=== PATIENT | female | born 1935 | race Hispanic/Latino ===

== ENCOUNTER 2018-03-09 17:29 | Inpatient (IN) | payer MEDICARE, BC ==
--- NOTE | 2018-03-09 18:00 | ED PDOC ---
HPI:STROKE - Time Time: 17:40 - Historian Historian: Family (Daughter Rebekah)) - Chief Complaint Chief Complaint: Numbness (left arm), Slurred speech - Onset Date: 03/09/18 Time: 09:30 Onset: Hours (x8) - Timing Timing: Currently Symptomatic - Location Location: Speech Locate left: Upper extremity (left) - Notes: Notes:: 82 y/o female with a PMHx of Dementia presents to the ED for evaluation of a possible stroke, onset 8 hours ago. Daughter states she was with an aide during the day who contacted her and stated that the patient had suddenly developed slurred speech and tingling in the left arm at approximately 9:30 AM/10:00 AM this morning. Daughter states patient was not speaking for about 10 minutes. Daughter contacted patient's PMD who stated the patient should go to the ER immediately thus prompting today's visit. Daughter additionally reports patient had a higher than normal blood pressure at onset of symptoms. Patient reports of feeling fine for the rest of the day. Of note, daughter states patient has had two similar episodes of symptoms prior to today's. PMD: Aayush Capps NIHSS Stroke Scale - Date/Time Evaluation Performed Date Performed: 03/09/18 Time Performed: 17:45 When Was NIHSS Performed: Code Stroke - How Severe is the Stroke Level of Consciousness: 0=Alert LOC to Questions: 2=Neither correct LOC to commands: 0=Obeys both correctly Best Gaze: 0=Normal Visual: 0=No visual loss Facial: 0=Normal Motor Arm - Left: 0=No drift Motor Arm - Right: 0=No drift Motor Leg - Left: 0=No drift Motor Leg - Right: 0=No drift Limb Ataxia: 0=Absent Sensory: 0=Normal Best Language: 0=No aphasia Dysarthia: 0=Normal articulation Extinction & Inattention (Neglect): 0=Normal, no object Score: 2 rTPA Inclusion/Exclusion - Refusal of Treatment Patient Refused Treatment: No - Inclusion Criteria for Altepase Patient is 18 years or Older: Yes The Clinical Diagnosis of Ischemic Stroke That is Causing a Potentially Disabling Neurological Deficit: Yes Time of Onset is Well Established to be Less Than 270 Minute Before Treatment Would Begin: No Risk/Benefit Discussed With Patient/Family Member Present: Yes - Exclusion Criteria for Altepase Uncontrolled Hypertension at Time of Treatment (Systolic BP above 185 or Diastolic BP above 110 mmHg): No Active Internal Bleeding: No Known Bleeding Diathesis Including but Not Limited to: Platelets Below 100,000/mm,PTT Above 40 sec After Heparin Use, Current Use of Oral Anitcoagulant With INR Greater Than 1.7 or PT Greater Than 15 secs: No Evidence of an Intracranial Hemorrhage: No Evidence of Major Acute Infarct With Signs Greater Than 1/3 MCA Territory: No Suspicion of Subarachnoid Hemorrhage on Pretreatment Evaluation Even if CT Head Negative For Hemorrhage: No - Warning to TPA With Conditions Following Conditions Weighed Against Anticipated Benefit: No Past Medical History Reviewed: Historical Data, Nursing Documentation, Vital Signs Vital Signs: Last Vital Signs Temp 97.3 F L 03/09/18 17:38 Pulse 95 H 03/09/18 17:38 Resp 18 03/09/18 17:38 BP 150/90 03/09/18 17:38 Pulse Ox 98 03/09/18 17:38 - Medical History PMH: HTN, Hypercholesterolemia, Kidney Stones - Surgical History Surgical History: Cholecystectomy - Family History Family History: States: Unknown Family Hx - Living Arrangements Living Arrangements: Other (Home with Aide) - Social History Current smoker - smoking cessation education provided: No Alcohol: None Drugs: Denies - Home Medications Home Medications: Ambulatory Orders Medication Instructions Recorded Alprazolam [Xanax] 0.5 mg PO Q8 PRN 03/09/18 Aspirin [Ecotrin] 81 mg PO DAILY 03/09/18 Candesartan/Hydrochlorothiazid 1 tab PO DAILY 03/09/18 [Atacand Hct 32-12.5 mg Tab] - Allergies Allergies/Adverse Reactions: Allergies Allergy/AdvReac Type Severity Reaction Status Date / Time codeine Allergy DIZZINESS Verified 03/09/18 17:38 Review of Systems ROS Statement: Except As Marked, All Systems Reviewed And Found Negative Neurological: Positive for: Numbness (left arm), Change in Speech, Other (Possible Stroke) Physical Exam - Reviewed Nursing Documentation Reviewed: Yes Vital Signs Reviewed: Yes - Physical Exam Appears: Positive for: No Acute Distress Head Exam: Positive for: ATRAUMATIC, NORMOCEPHALIC Skin: Positive for: Normal Color, Warm, Dry Eye Exam: Positive for: Normal appearance, EOMI, PERRL ENT: Positive for: Normal ENT Inspection Neck: Positive for: Normal, Painless ROM Cardiovascular/Chest: Positive for: Regular Rate, Rhythm. Negative for: Murmur Respiratory: Positive for: Normal Breath Sounds. Negative for: Respiratory Distress Gastrointestinal/Abdominal: Positive for: Normal Exam, Soft. Negative for: Tenderness Extremity: Positive for: Normal ROM. Negative for: Deformity Neurologic/Psych: Positive for: Alert, Oriented (x2 name and place). Negative for: Motor/Sensory Deficits - ECG O2 Sat by Pulse Oximetry: 98 (RA) Pulse Ox Interpretation: Normal Medical Decision Making Medical Decision Making: Time: 1746 Impression: Code Stroke, slurred speech this am, resolved now Plan: -- Type and Screen -- CT Head w/o Contrast -- EKG -- CMP -- Hemoglobin A1C -- Lipid Panel -- Troponin I -- Stroke Team Called -- CBC with Differentials -- PTT -- Prothrombin Time -- CXR Portable -- Sodium Chloride IV 100 mls/hr -- Laborer Salvage -- IV Insertion -- Call Stroke Team Consult -- ED Obtain Labs Stat -- Glucose, Blood -- Nursing Swallow -- Vital Signs Q15Min -- Code Stroke activated -- Spoke to neurologist site acquisition manager, Dr. Vega who states patient should be admitted. Dr. Vega additionally recommends aspirin (pt got asa 81 in the am), MRI and MRA. Patient to be admitted under the hospitalist's service. (dr salas admits to hospitalist) Time: 1815 Plan: -- Brain MRI without Contrast -- MRA Head w/o Contrast -- Aspirin 81 mg PO Time: 1828 CT RESULTS FINDINGS: HEMORRHAGE: No intracranial hemorrhage. BRAIN: Diffuse atrophy with prominence of the ventricles and sulci noted. No mass effect or edema. Intracranial atherosclerosis. Probable bilateral tiny basal ganglia lacunar infarcts. Moderate to severe scattered periventricular and subcortical white matter hypodensities, which are nonspecific, but often seen with chronic microvascular ischemic disease. Asymmetric fluid attenuation evident within the right cerebellum, extra-axial space. VENTRICLES: No hydrocephalus. CALVARIUM: Unremarkable. PARANASAL SINUSES: Mucosal polyp/cysts involving the right maxillary sinus. The remainder the visualized paranasal sinuses appear grossly unremarkable. MASTOID AIR CELLS: Unremarkable as visualized. No inflammatory changes. OTHER FINDINGS: None. IMPRESSION: Moderate to severe nonspecific white matter changes. 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 Given extent of nonspecific white matter changes, underlying acute ischemia cannot be excluded. Please note that MRI with diffusion imaging is more sensitive in the detection of acute ischemic event. Fluid attenuation in the extra-axial space along the right cerebellum possibly representing arachnoid cyst. Findings discussed with Dr. Patel on 03/09/18 at 6:08 p.m.; case also discussed with Dr. Vega on 03/09/18 at 6:27 p.m. spoke with hospitalist Dr Erazo for admission. Scribe Attestation: Documented by Madhuri Davis, acting as a scribe for Davin Patel MD. Provider Scribe Attestation: All medical record entries made by the Scribe were at my direction and personally dictated by me. I have reviewed the chart and agree that the record accurately reflects my personal performance of the history, physical exam, medical decision making, and the department course for this patient. I have also personally directed, reviewed, and agree with the discharge instructions and disposition. Disposition - Clinical Impression Clinical Impression: Slurred speech - Patient ED Disposition Is Patient to be Admitted: Yes Counseled Patient/Family Regarding: Studies Performed, Diagnosis - Disposition Disposition Time: 18:25 Condition: STABLE
[2018-03-09 18:26] LABS: BASO # 0.1 K/uL (0.0-0.2); BASO % 1.4 % (0.0-2.0); EOS # 0.1 K/uL (0.0-0.7); EOS % 1.6 % (0.0-4.0); HEMOGLOBIN 12.2 g/dL (12.0-16.0); LYMPH # 1.3 K/uL (1.0-4.3); LYMPH % 17.6 % (20.0-40.0); MEAN CELL VOLUME 83.2 fl (81.0-99.0); MEAN CORPUSCULAR HEMOGLOBIN 26.7 pg (27.0-31.0); MEAN CORPUSCULAR HGB CONC 32.1 g/dL (33.0-37.0); MEAN PLATELET VOLUME 8.6 fl (7.2-11.7); MONO # 0.6 K/uL (0.0-0.8); MONO % 8.3 % (0.0-10.0); NEUT # 5.1 K/uL (1.8-7.0); NEUT % 71.1 % (50.0-75.0); RBC 4.55 Mil/uL (3.80-5.20); WHITE BLOOD COUNT 7.1 K/uL (4.8-10.8)
--- NOTE | 2018-03-09 18:33 | CT ---
Date of service: 03/09/2018 PROCEDURE: CT HEAD WITHOUT CONTRAST. HISTORY: code stroke COMPARISON: None available. TECHNIQUE: Axial computed tomography images were obtained through the head/brain without intravenous contrast. Radiation dose: Total exam DLP = 793.04 mGy-cm. This CT exam was performed using one or more of the following dose reduction techniques: Automated exposure control, adjustment of the mA and/or kV according to patient size, and/or use of iterative reconstruction technique. FINDINGS: HEMORRHAGE: No intracranial hemorrhage. BRAIN: Diffuse atrophy with prominence of the ventricles and sulci noted. No mass effect or edema. Intracranial atherosclerosis. Probable bilateral tiny basal ganglia lacunar infarcts. Moderate to severe scattered periventricular and subcortical white matter hypodensities, which are nonspecific, but often seen with chronic microvascular ischemic disease. Asymmetric fluid attenuation evident within the right cerebellum, extra-axial space. VENTRICLES: No hydrocephalus. CALVARIUM: Unremarkable. PARANASAL SINUSES: Mucosal polyp/cysts involving the right maxillary sinus. The remainder the visualized paranasal sinuses appear grossly unremarkable. MASTOID AIR CELLS: Unremarkable as visualized. No inflammatory changes. OTHER FINDINGS: None. IMPRESSION: Moderate to severe nonspecific white matter changes. 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 Given extent of nonspecific white matter changes, underlying acute ischemia cannot be excluded. Please note that MRI with diffusion imaging is more sensitive in the detection of acute ischemic event. Fluid attenuation in the extra-axial space along the right cerebellum possibly representing arachnoid cyst. Findings discussed with Dr. Patel on 03/09/18 at 6:08 p.m.; case also discussed with Dr. Vega on 03/09/18 at 6:27 p.m.
[2018-03-09 18:37] LABS: ALB/GLOB RATIO 1.2 (1.0-2.1); ALBUMIN 3.9 g/dL (3.5-5.0); ALT/SGPT 20 U/L (9-52); AST/SGOT 21 U/L (14-36); BLOOD UREA NITROGEN 19 mg/dl (7-17); CALCIUM 9.4 mg/dL (8.4-10.2); GFR NON-AFRICAN AMERICAN > 60; HDL CHOLESTEROL 41 MG/DL (30-70)
[2018-03-09 18:43] LABS: INR 1.1
[2018-03-09 18:45] LABS: PARTIAL THROMBOPLASTIN TIME 31.6 Seconds (25.6-37.1)
[2018-03-09 18:48] LABS: LDL CHOLESTEROL 131 mg/dL (0-129)
[2018-03-09] MEDS: Sodium Chloride 0.9% 1,000 ML IV SCH (18:51)
--- NOTE | 2018-03-09 19:39 | CP.PCM.HP ---
<Sultan Perla - Last Filed: 03/09/18 22:49> History of Present Illness - History of Present Illness History of Present Illness: History taken from patient and patient's daughter due to patient's dementia CC: Slurred speech and right hand tingling HPI: 82 year old female with PMHx Lewy body dementia, hypertension, and HLD brought in to [facility] ED accompanied by her daughter presents for evaluation of possible stroke. Daughter reports patient was at home with home health aide this morning around 9:30-10am when patient developed slurred speech and tingling of right arm. Daughter reports that patient did not talk and blanked out for about 10 minutes. Daughter called her PMD and directed her to ER for prompt evaluation. Patient denies any numbness or tingling of face, drooling, focal w eakness, chest pain or dyspnea. In the ER, patients NIHSS score was [address] showed moderate to severe nonspecific white matter changes. 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 Given extent of nonspecific white matter changes, underlying acute ischemia cannot be excluded. Code stroke was activated and patient is admitted to r/o stroke ROS: all 12 systems reviewed and negative except as mentioned in HPI PMHx: Lewy Body Dementia, HTN, HLD PSHX: Denies Social hx: lives at home. Denies any hx smoking cigarettes, EtOH use or illicit drugs. Family hx: non contributory Allergies: Codeine: vomiting Medications: Alprazolam [0.5 mg PO PRN, Aspirin 81 mg PO DAILY, Candesartan/Hydrochlorothiazide 32/12.5 mg 1 tab PO DAILY PMD: Dr. Capps Surrogate decision maker: Pao (daughter) [phone] Code Status: full code Present on Admission - Present on Admission Any Indicators Present on Admission: No Review of Systems - Review of Systems All systems: reviewed and no additional remarkable complaints except (as mentioned in HPI) Past Patient History - Past Social History Alcohol: None Drugs: Denies - CARDIAC Hx Hypercholesterolemia: Yes Hx Hypertension: Yes - RENAL Hx Kidney Stones: Yes - PSYCHIATRIC Hx Substance Use: No - SURGICAL HISTORY Hx Cholecystectomy: Yes Meds Allergies/Adverse Reactions: Allergies Allergy/AdvReac Type Severity Reaction Status Date / Time codeine Allergy DIZZINESS Verified 03/09/18 17:38 Physical Exam - Constitutional Appears: Non-toxic, No Acute Distress, Chronically Ill - Head Exam Head Exam: ATRAUMATIC, NORMOCEPHALIC - Eye Exam Eye Exam: EOMI, Normal appearance, PERRL - ENT Exam ENT Exam: Mucous Membranes Moist, Normal Oropharynx - Neck Exam Neck exam: Positive for: Normal Inspection - Respiratory Exam Respiratory Exam: Clear to Auscultation Bilateral, NORMAL BREATHING PATTERN. absent: Wheezes, Respiratory Distress - Cardiovascular Exam Cardiovascular Exam: REGULAR RHYTHM, +S1, +S2 - GI/Abdominal Exam GI & Abdominal Exam: Normal Bowel Sounds, Soft. absent: Tenderness - Extremities Exam Extremities exam: Positive for: normal inspection, pedal pulses present. Negative for: calf tenderness - Neurological Exam Neurological exam: Alert (and oriented to place and person) Additional comments: Normal speech pattern, no facial droop or aphasia seen hand president ergonomic consulting strength, upper and lower extremity strength 5/5, sensory intact. - Psychiatric Exam Psychiatric exam: Normal Affect, Normal Mood - Skin Skin Exam: Normal Color, Warm Results - Vital Signs Recent Vital Signs: Last Vital Signs Temp 97.3 F L 03/09/18 17:38 Pulse 88 03/09/18 18:35 Resp 18 03/09/18 18:35 BP 152/73 H 03/09/18 18:35 Pulse Ox 98 03/09/18 18:37 - Labs Result Diagrams: 03/09/18 18:10 03/09/18 18:10 Labs: Laboratory Results - last 24 hr 03/09/18 03/09/18 03/09/18 18:10 18:10 18:10 WBC 7.1 RBC 4.55 Hgb 12.2 Hct 37.9 MCV 83.2 MCH 26.7 L MCHC 32.1 L RDW 14.0 Plt Count 288 MPV 8.6 Neut % (Auto) 71.1 Lymph % (Auto) 17.6 L [place] % (Auto) 8.3 Eos % (Auto) 1.6 Baso % (Auto) 1.4 Neut # (Auto) 5.1 Lymph # (Auto) 1.3 [place] # (Auto) 0.6 Eos # (Auto) 0.1 Baso # (Auto) 0.1 PT 12.0 INR 1.1 APTT 31.6 Sodium 140 Potassium 4.1 Chloride 107 Carbon Dioxide 26 Anion Gap 11 BUN 19 H Creatinine 0.7 Est GFR ( Amer) > 60 Est GFR (Non-Af Amer) > 60 Random Glucose 98 Calcium 9.4 Total Bilirubin 0.4 AST 21 ALT 20 Alkaline Phosphatase 75 Troponin I < 0.0120 Total Protein 7.0 Albumin 3.9 Globulin 3.1 Albumin/Globulin Ratio 1.2 Triglycerides 109 Cholesterol 198 LDL Cholesterol Direct 131 H HDL Cholesterol 41 Assessment & Plan - Assessment and Plan (Free Text) Assessment: 82 year old female with PMHx Lewy body dementia, hypertension, and HLD brought in to [facility] ED accompanied by her daughter presents for evaluation of possible stroke. Daughter reports patient was home health aide this morning around 9:30- 10am when patient developed slurred speech and tingling of right arm. Daughter reports that patient did not talk and blanked out for about 10 minutes. . In the ER, patients NIHSS score was [address] showed moderate to severe nons pecific white matter changes. 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 Given extent of nonspecific white matter changes, underlying acute ischemia cannot be excluded. Code stroke was activated and patient is admitted to r/o stroke. Plan: Slurred speech (resolved) w/ right hand tingling r/o stroke -NIHSS score 2 -Head CT: Moderate to severe nonspecific white matter changes. 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 Given extent of nonspecific white matter changes, underlying acute ischemia cannot be excluded -s/p aspirin 81 mg in ER -Swallow eval: passed in ER -c/w Aspirin and Statin -IVF's D5 1/2 NS with 20 KCl @100cc/hr -Permissive HTN -f/u neuro consult -f/u brain MRI -MRA not done because patient refused Hypertension: -Uncontrolled -Hold BP medications -Permissive HTN for SBP <180 Lewy Body Dementia -chronic DVT prophylaxis -Lovenox 40 mg SC daily Code Status -Full code Plan d/w Dr. Brendan Duncan, [id number] <Alicia Cardona - Last Filed: 03/15/18 20:17> Results - Vital Signs Recent Vital Signs: Last Vital Signs Temp 98.1 F 03/15/18 20:07 Pulse 90 03/15/18 20:07 Resp 18 03/15/18 20:07 BP 153/77 H 03/15/18 20:07 Pulse Ox 97 03/15/18 20:07 - Labs Result Diagrams: 03/13/18 05:50 03/14/18 04:30 Labs: Laboratory Results - last 24 hr 03/15/18 15:10 Urine Color Yellow Urine Clarity Cloudy Urine pH 6.0 Ur Specific [place] 1.016 Urine Protein Negative Urine Glucose (UA) Neg Urine Ketones Negative Urine Blood Moderate Urine Nitrate Positive H Urine Bilirubin Negative Urine Urobilinogen 0.2-1.0 Ur Leukocyte Esterase Large Urine RBC (Auto) 13 H Urine Microscopic WBC 187 H Ur Squamous Epith Cells 10 H Urine Bacteria Mod H Attending/Attestation - Attestation I have personally seen and examined this patient.: Yes I have fully participated in the care of the patient.: Yes I have reviewed all pertinent clinical information: Yes Notes (Text): 03/15/18 20:17 agree with findings and plan as above.
[2018-03-09] MEDS ORDERED: Potassium Ch 20mEq in D5-1/2NS 1,000 ML IV SCH (19:45)
[2018-03-10] MEDS: Sodium Chloride 0.9% 1,000 ML IV SCH (04:00)
--- NOTE | 2018-03-10 06:06 | CARD ---
APPROVED REPORT Date of service: 03/09/2018 EKG Measurement Heart [id number] <Conclusion> Sinus rhythm with 1st degree AV block Minimal voltage criteria for LVH, may be normal variant Borderline ECG
[2018-03-10] MEDS: Enoxaparin 40 mg Syringe SC SCH (08:17)
[2018-03-10] MEDS ORDERED: Pneumococcal 23-Valent Vaccine IM ONE (08:27)
[2018-03-10] MEDS ORDERED: Influenza Vaccine 60 MCG/0.5 ML SYR (3 yr & up) IM ONE (08:27)
--- NOTE | 2018-03-10 08:43 | RAD ---
Date of service: 03/09/2018 HISTORY: Code Stroke COMPARISON: No prior. FINDINGS: LUNGS: No active pulmonary disease. PLEURA: Left pleural effusion difficult to completely exclude. None is seen the right. No pneumothorax bilaterally. CARDIOVASCULAR: No aortic atherosclerotic calcification present. Normal cardiac size. No pulmonary vascular congestion. OSSEOUS STRUCTURES: Scoliotic thoracolumbar spinal deformity distorts the mediastinum. VISUALIZED UPPER ABDOMEN: Normal. OTHER FINDINGS: None. IMPRESSION: Questionable small pleural effusion. None is seen the right. No acute pulmonary disease bilaterally. No acute cardiovascular changes.
[2018-03-10 11:42] LABS: HEMOGLOBIN 12.1 g/dL (12.0-16.0); MEAN CORPUSCULAR HEMOGLOBIN 27.2 pg (27.0-31.0); RBC 4.44 Mil/uL (3.80-5.20); RED CELL DISTRIBUTION WIDTH 14.5 % (11.5-14.5); WHITE BLOOD COUNT 6.9 K/uL (4.8-10.8)
--- NOTE | 2018-03-10 11:52 | MRI ---
Date of service: 03/09/2018 PROCEDURE: MRI BRAIN WITHOUT CONTRAST HISTORY: abnormal ct head; dementia with Lewy bodies. COMPARISON: Unenhanced head CT 03/09/2018. TECHNIQUE: Multiplanar, multisequence MR images of the brain were obtained without intravenous contrast enhancement. FINDINGS: HEMORRHAGE: None DWI: No evidence of an acute or early subacute infarction. BRAIN PARENCHYMA: Expansion of the ventricular sulcal sternal spaces appreciated compatible diffuse cerebral atrophy. A 6.2 x 1.5 cm likely arachnoid cyst is appreciated favored over atypical cisterna magna occupying the midline and right posterior fossa inferiorly and posteriorly. No restricted diffusion associated with this finding. This excludes an epidermoid. Limited mass effect is exerted at the right cerebellar hemisphere posteriorly. Extensive white matter signal abnormalities appreciated throughout the subcortical and centrum semiovale white matter of the upper frontoparietal distribution minimally affecting the temporal lobes and mildly affecting the bilateral occipital lobes. Occasional chronic lacune a are identified in the periventricular white matter as well. The pattern could reflect patient's clinical history of dementia with Lewy bodies though Alzheimer's and other dementias can present similarly. Brainstem is unremarkable and there is no midline shift. VENTRICLES: Unremarkable. No hydrocephalus. CRANIUM: Unremarkable. ORBITS: Grossly unremarkable. PARANASAL SINUSES/MASTOIDS: Clear VASCULAR SYSTEM: Skull base flow voids intact. OTHER FINDINGS: None. IMPRESSION: No evidence of acute separate brain infarction. No significant mass effect. Extensive white matter signal abnormalities are identified in a pattern that may reflect dimension with Lewy bodies (clinically known in this patient) though other dimensions are a possibility as well. Diffuse cerebral atrophy chronic microangiopathy underlie this pattern. 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
--- NOTE | 2018-03-10 13:31 | CP.PCM.CON ---
History of Present Illness - History of Present Illness History of Present Illness: Psychiatry consult note Patient interviewed w/ daughter (POA) Pao, present. Patient unable to provide history due to dementia. CC: Slurred speech and right hand tingling HPI: 82 year old female with PMHx Lewy body dementia, hypertension, and HLD brought in to [facility] ED accompanied by her daughter presents for evaluation of possible stroke. Daughter reports patient was at home with home health aide this morning around 9:30-10am when patient developed slurred speech and tingling of right arm. Daughter reports that patient did not talk and blanked out for about 10 minutes. Daughter called her PMD and directed her to ER for prompt evaluation. Patient denies any numbness or tingling of face, drooling, focal weakness, chest pain or dyspnea. In the ER, patients NIHSS score was [address] showed moderate to severe nonspecific white matter changes. 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 Given extent of nonspecific white matter changes, underlying acute ischemia cannot be excluded. Code stroke was activated and patient is admitted to r/o stroke. At this time, patient only oriented to self. Patient's daughter, Pao, reports that at times the patient has visual hallucinations of the little boy due to her Lewy Body Dementia. Patient denies current hallucinations. Pao does not want the patient treated with psychotropic medications at this time. She denies that the patient is violent or aggressive, she is just frequently confused or sleeping due to dementia. PMHx: Lewy Body Dementia, HTN, HLD PSHX: Denies Social hx: lives at home. Denies any hx smoking cigarettes, EtOH use or illicit drugs. Family hx: non contributory Allergies: Codeine: vomiting Medications: Alprazolam [0.5 mg PO PRN, Aspirin 81 mg PO DAILY, Candesartan/Hydrochlorothiazide 32/12.5 mg 1 tab PO DAILY PMD: Dr. Capps Surrogate decision maker: Pao (daughter) [phone] Code Status: full code Impression: 82 yo female w/ Lewy Body Dementia, HTN, HLD, admitted w/ r/o stroke; patient has major neurocognitive impairment, but is currently calm and not agitated. -Recommend to avoid antipsychotics, such as Haldol or other high potency antipsychotics, as they can worsen symptoms of Lewy Body Dementia -Patient's daughter, POA, does not want the patient treated w/ psychotropic medications at this time; if patient's daughter becomes agreeable, can consider treatment with Aricept, Namenda or Depakote -No acute inpatient psychiatric admission indicated at this time Past Patient History - Past Medical History & Family History Past Medical History?: Yes - Past Social History Alcohol: None Drugs: Denies - CARDIAC Hx Hypercholesterolemia: Yes Hx Hypertension: Yes - PULMONARY Hx Respiratory Disorders: No - NEUROLOGICAL Hx Neurological Disorder: Yes Hx Dementia: Yes - HEENT Hx HEENT Problems: No - RENAL Hx Kidney Stones: Yes - ENDOCRINE/METABOLIC Hx Endocrine Disorders: No - HEMATOLOGICAL/ONCOLOGICAL Hx Blood Disorders: No - INTEGUMENTARY Hx Dermatological Problems: No - MUSCULOSKELETAL/RHEUMATOLOGICAL Hx Musculoskeletal Disorders: Yes Hx Falls: No Hx Unsteady Gait: Yes - GASTROINTESTINAL Hx Gastrointestinal Disorders: No - GENITOURINARY/GYNECOLOGICAL Hx Genitourinary Disorders: No - PSYCHIATRIC Hx Substance Use: No - SURGICAL HISTORY Hx Cholecystectomy: Yes - ANESTHESIA Hx Anesthesia: Yes Hx Anesthesia Reactions: No Meds Allergies/Adverse Reactions: Allergies Allergy/AdvReac Type Severity Reaction Status Date / Time codeine Allergy DIZZINESS Verified 03/09/18 17:38 - Medications Medications: Current Medications Atorvastatin Calcium (Lipitor) 40 mg PO HS [facility] Enoxaparin Sodium (Lovenox) 40 mg SC DAILY RON[facility]; Protocol Last Admin: 03/10/18 08:17 Dose: 40 mg Sodium Chloride (Sodium Chloride 0.9%) 1,000 mls @ 100 mls/hr IV .Q10H [facility]ON[facility] Last Admin: 03/10/18 04:00 Dose: 100 mls/hr Ondansetron HCl (Zofran Inj) 4 mg IVP Q6 PRN PRN Reason: Nausea/Vomiting Results - Vital Signs Recent Vital Signs: Last Vital Signs Temp 98.0 F 03/10/18 12:00 Pulse 73 03/10/18 09:00 Resp 21 03/10/18 09:00 BP 148/86 03/10/18 09:00 Pulse Ox 99 03/10/18 08:13 - Labs Result Diagrams: 03/10/18 11:00 03/09/18 18:10 Labs: Laboratory Results - last 24 hr 03/09/18 03/09/18 03/09/18 17:48 18:10 18:10 WBC 7.1 RBC 4.55 Hgb 12.2 Hct 37.9 MCV 83.2 MCH 26.7 L MCHC 32.1 L RDW 14.0 Plt Count 288 MPV 8.6 Neut % (Auto) 71.1 Lymph % (Auto) 17.6 L [place] % (Auto) 8.3 Eos % (Auto) 1.6 Baso % (Auto) 1.4 Neut # (Auto) 5.1 Lymph # (Auto) 1.3 [place] # (Auto) 0.6 Eos # (Auto) 0.1 Baso # (Auto) 0.1 PT INR APTT Sodium 140 Potassium 4.1 Chloride 107 Carbon Dioxide 26 Anion Gap 11 BUN 19 H Creatinine 0.7 Est GFR ( Amer) > 60 Est GFR (Non-Af Amer) > 60 POC Glucose (mg/dL) 100 Random Glucose 98 Hemoglobin A1c Calcium 9.4 Total Bilirubin 0.4 AST 21 ALT 20 Alkaline Phosphatase 75 Troponin I < 0.0120 Total Protein 7.0 Albumin 3.9 Globulin 3.1 Albumin/Globulin Ratio 1.2 Triglycerides 109 Cholesterol 198 LDL Cholesterol Direct 131 H HDL Cholesterol 41 Blood Type Blood Type Confirm Antibody Screen BBK History Checked 03/09/18 03/09/18 03/09/18 18:10 18:21 18:45 WBC RBC Hgb Hct MCV MCH MCHC RDW Plt Count MPV Neut % (Auto) Lymph % (Auto) [place] % (Auto) Eos % (Auto) Baso % (Auto) Neut # (Auto) Lymph # (Auto) [place] # (Auto) Eos # (Auto) Baso # (Auto) PT 12.0 INR 1.1 APTT 31.6 Sodium Potassium Chloride Carbon Dioxide Anion Gap BUN Creatinine Est GFR ( Amer) Est GFR (Non-Af Amer) POC Glucose (mg/dL) Random Glucose Hemoglobin A1c 5.7 Calcium Total Bilirubin AST ALT Alkaline Phosphatase Troponin I Total Protein Albumin Globulin Albumin/Globulin Ratio Triglycerides Cholesterol LDL Cholesterol Direct HDL Cholesterol Blood Type O POSITIVE Blood Type Confirm Antibody Screen Negative BBK History Checked No verified bt 03/09/18 03/10/18 03/10/18 20:02 04:35 06:24 WBC RBC Hgb Hct MCV MCH MCHC RDW Plt Count MPV Neut % (Auto) Lymph % (Auto) [place] % (Auto) Eos % (Auto) Baso % (Auto) Neut # (Auto) Lymph # (Auto) [place] # (Auto) Eos # (Auto) Baso # (Auto) PT INR APTT Sodium Potassium Chloride Carbon Dioxide Anion Gap BUN Creatinine Est GFR ( Amer) Est GFR (Non-Af Amer) POC Glucose (mg/dL) 97 Random Glucose Hemoglobin A1c Calcium Total Bilirubin AST ALT Alkaline Phosphatase Troponin I < 0.0120 Total Protein Albumin Globulin Albumin/Globulin Ratio Triglycerides Cholesterol LDL Cholesterol Direct HDL Cholesterol Blood Type Blood Type Confirm O POSITIVE Antibody Screen BBK History Checked 03/10/18 03/10/18 03/10/18 09:30 11:00 11:32 WBC 6.9 RBC 4.44 Hgb 12.1 Hct 37.7 MCV 85.0 MCH 27.2 MCHC 32.0 L RDW 14.5 Plt Count 264 MPV Neut % (Auto) Lymph % (Auto) [place] % (Auto) Eos % (Auto) Baso % (Auto) Neut # (Auto) Lymph # (Auto) [place] # (Auto) Eos # (Auto) Baso # (Auto) PT INR APTT Sodium Potassium Chloride Carbon Dioxide Anion Gap BUN Creatinine Est GFR ( Amer) Est GFR (Non-Af Amer) POC Glucose (mg/dL) 87 Random Glucose Hemoglobin A1c Calcium Total Bilirubin AST ALT Alkaline Phosphatase Troponin I < 0.0120 Total Protein Albumin Globulin Albumin/Globulin Ratio Triglycerides Cholesterol LDL Cholesterol Direct HDL Cholesterol Blood Type Blood Type Confirm Antibody Screen BBK History Checked
--- NOTE | 2018-03-10 14:50 | CP.PCM.PN ---
Subjective - Date & Time of Evaluation Date of Evaluation: 03/10/18 Time of Evaluation: 08:15 - Subjective Subjective: Pt seen and examined at bedside with daughter. Pt oriented to self. She was moved to her chair. No acute events since admission. Objective - Vital Signs/Intake and Output Vital Signs (last 24 hours): Temp Pulse Resp BP Pulse Ox 98.0 F 80 21 148/86 99 03/10/18 12:00 03/10/18 09:20 03/10/18 09:00 03/10/18 09:00 03/10/18 08:13 Intake and Output: 03/10/18 03/10/18 06:59 18:59 Intake Total 900 Output Total 300 1 Balance 600 -1 - Medications Medications: Current Medications Atorvastatin Calcium (Lipitor) 40 mg PO HS [facility] Enoxaparin Sodium (Lovenox) 40 mg SC DAILY RONDA; Protocol Last Admin: 03/10/18 08:17 Dose: 40 mg Sodium Chloride (Sodium Chloride 0.9%) 1,000 mls @ 100 mls/hr IV .Q10H [facility] Last Admin: 03/10/18 04:00 Dose: 100 mls/hr Ondansetron HCl (Zofran Inj) 4 mg IVP Q6 PRN PRN Reason: Nausea/Vomiting - Labs Labs: 03/10/18 11:00 03/09/18 18:10 PT 12.0 Seconds (9.8-13.1) 03/09/18 18:10 INR 1.1 03/09/18 18:10 APTT 31.6 Seconds (25.6-37.1) 03/09/18 18:10 - Constitutional Appears: No Acute Distress - Eye Exam Eye Exam: EOMI - ENT Exam ENT Exam: Mucous Membranes Moist - Respiratory Exam Respiratory Exam: NORMAL BREATHING PATTERN. absent: Wheezes - Cardiovascular Exam Cardiovascular Exam: +S1, +S2 - GI/Abdominal Exam GI & Abdominal Exam: Soft, Normal Bowel Sounds. absent: Tenderness - Neurological Exam Neurological Exam: Alert, Awake - Psychiatric Exam Psychiatric exam: Normal Affect, Normal Mood Assessment and Plan - Assessment and Plan (Free Text) Assessment: 82 year old female with PMHx Lewy body dementia, hypertension, and HLD brought in to [facility] ED accompanied by her daughter presents for evaluation of possible stroke. 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 Daughter reports that patient did not talk and blanked out for about 10 minutes. In the ER, patients NIHSS score was [address] showed moderate to severe nonspecific white matter changes. 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 Given extent of nonspecific white matter changes, underlying acute ischemia cannot be excluded. Code stroke was activated and patient is admitted to r/o stroke. Plan: Slurred speech (resolved) w/ right hand tingling r/o stroke -NIHSS score 2 -Head CT: Moderate to severe nonspecific white matter changes. 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 Given extent of nonspecific white matter changes, underlying acute ischemia cannot be excluded -s/p aspirin 81 mg in ER -Swallow eval: passed in ER -c/w Aspirin and Statin -s/p IVF's D5 1/2 NS with 20 KCl @100cc/hr -f/u neuro consult -f/u brain MRI -f/u EEG r/o seizure Murmur -ECHO: ordered -Cardiology: Dr. Madrigal Hypertension: -Uncontrolled -Hold BP medications -Permissive HTN for SBP <180 Lewy Body Dementia -chronic -With behavior disturbance -Psychiatry: Dr. Loredo -f/u prolactin PT -deconditioning s/p possible stroke DVT prophylaxis -Lovenox 40 mg SC daily Code Status -Full code Plan dw Dr. Gina Nevarez MD PGY2
--- NOTE | 2018-03-10 16:20 | MRI ---
Date of service: 03/10/2018 PROCEDURE: Magnetic Resonance Angiography Brain HISTORY: abnormal CT findings COMPARISON: None available. TECHNIQUE: 3D time of flight MR angiography of the intracranial arteries was performed. Rotating maximum intensity projection images were generated. FINDINGS: INTERNAL CAROTID ARTERIES: Unremarkable. The skull base, petrous, cavernous and supraclinoid segments are bilaterally widely patient. ANTERIOR CEREBRAL ARTERIES: Unremarkable. A1 and A2 segments are widely patent. Smaller distal branches unremarkable, as visualized. MIDDLE CEREBRAL ARTERIES: Unremarkable. M1 and M2 segments are widely patent. Perisylvian branches grossly symmetric. POSTERIOR CIRCULATION: Basilar Artery: Unremarkable. Distal Vertebral Arteries: Unremarkable. 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 Left [employer] grossly unremarkable. Posterior Inferior Cerebellar Arteries: Unremarkable. ANEURYSM/ VASCULAR MALFORMATIONS: None. OTHER FINDINGS: None. 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
--- NOTE | 2018-03-10 20:48 | CP.PCM.CON ---
History of Present Illness - History of Present Illness History of Present Illness: Neurology Consultation Note: Mrs. Butler is an 82-year-old woman with a past medical history of Lewy Body dementia, HLD, HTN, who was brought in for symptoms of staring off and not speaking for about 10 minutes. There was concern that she may be having a stroke. Neurology was consulted by Dr. Patel for a possible stroke. Non-con trast CT scan of the head did not show any acute findings. The patient is confused at baseline and has frequent hallucinations. MRI of the brain did not show any acute stroke; however, there was an arachnoid cyst noted in the posterior fossa. She is not clinically at her baseline. Review of Systems - Constitutional Constitutional: As Per HPI - EENT Eyes: absent: As Per HPI, Blind Spots, Blurred Vision, Change in Vision, Decreased Night Vision, Diplopia, Discharge, Dry Eye, Exophthalmos, Floaters, Irritation, Itchy Eyes, Loss of Peripheral Vision, Pain, Photophobia, Requires Corrective Lenses, Sees Flashes, Spots in Vision, Tunnel Vision, Other Visual Disturbances, Loss of Vision, Other Ears: absent: As Per HPI, Decreased Hearing, Ear Discharge, Ear Pain, Tinnitus, Abnormal Hearing, Disequilibrium, Dizziness, Other Nose/Mouth/Throat: absent: As Per HPI, Epistaxis, Nasal Congestion, Nasal Discharge, Nasal Obstruction, Nasal Trauma, Nose Pain, Post Nasal Drip, Sinus Pain, Sinus Pressure, Bleeding Gums, Change in Voice, Dental Pain, Dry Mouth, Dysphagia, Halitosis, Hoarsness, Lip Swelling, Mouth Lesions, Mouth Pain, Odynophagia, Sore Throat, Throat Swelling, Tongue Swelling, Facial Pain, Neck Pain, Neck Mass, Other - Cardiovascular Cardiovascular: absent: As Per HPI, Acrocyanosis, Chest Pain, Chest Pain at Rest, Chest Pain with Activity, Claudication, Diaphoresis, Dyspnea, Dyspnea on E xertion, Edema, Irregular Heart Rhythm, Pain Radiating to Arm/Neck/Jaw, Leg Edema, Leg Ulcers, Lightheadedness, Orthopnea, Palpitations, Paroxysmal Nocturnal Dyspnea, Pedal Edema, Radiating Pain, Rapid Heart Rate, Slow Heart Rate, Syncope, Other - Respiratory Respiratory: absent: As Per HPI, Cough, Dyspnea, Hemoptysis, Dyspnea on Exertion, Wheezing, Snoring, Stridor, Pain on Inspiration, Chest Congestion, Excessive Mucous Production, Change in Mucous Color, Pain with Coughing, Other - Gastrointestinal Gastrointestinal: absent: As Per HPI, Abdominal Pain, Belching, Bloating, Change in Bowel Habits, Change in Stool Character, Coffee Ground Emesis, Constipation, Cramping, Diarrhea, Dyspepsia, Dysphagia, Early Satiety, Excessive Flatus, Fecal Incontinence, Heartburn, Hematemesis, Hematochezia, Loose Stools, Melena, Nausea, Odynophagia, Temesmus, Vomiting, Other - Genitourinary Genitourinary: absent: As Per HPI, Change in Urinary Stream, Difficulty Urinating, Dysuria, Flank Pain, Hematuria, Pyuria, Nocturia, Urinary Incontinence, Urinary Frequency, Urinary Hesitance, Urinary Urgency, Voiding Freq/Small Amts, Freq UTI, Hx Renal/Bladder Calculi, Hx /Renal Surgery, Bladd er Distension, Other - Musculoskeletal Musculoskeletal: absent: As Per HPI, Abnormal Gait, Arthralgias, Atrophy, Back Pain, Deformity, Joint Swelling, Limited Range of Motion, Loss of Height, Muscle Cramps, Muscle Weakness, Myalgias, Neck Pain, Numbness, Radiating Pain into Limb, Stiffness, Tingling, Other - Integumentary Integumentary: absent: As Per HPI, Acne, Alopecia, Bleeding Lesions, Change in Hair, Change in Nails, Change in Pigmentation, Changing Lesions, Dry Skin, Erythema, Furuncle, Hirsutism, Lesions, New Lesions, Non-Healing Lesions, Photosensitivity, Pruritus, Rash, Skin Pain, Skin Ulcer, Sores, Striae, Swelling, Unusual Bruising, Wounds, Jaundice, Other - Neurological Neurological: As Per HPI - Psychiatric Psychiatric: absent: As Per HPI, Abnormal Sleep Pattern, Anhedonia, Anxiety, Auditory Hallucinations, Behavioral Changes, Change in Appetite, Change in Libido, Confusion, Depression, Difficulty Concentrating, Hallucinations, Homicidal Ideation, Hopelessness, Irritability, Memory Loss, Mood Swings, Panic Attacks, Paranoia, Suicidal Ideation, Visual Hallucinations, Tactile Hallucinations, Other - Endocrine Endocrine: absent: As Per HPI, Change in Body Appearance, Change in Libido, Cold Intolorance, Deepening of Voice, Excessive Sweating, Fatigue, Flushing, Heat Intolorance, Increase in Ring/Shoe/Hat Size, Palpitations, Polydipsia, Polyphagia, Polyuria, Other Past Patient History - Past Medical History & Family History Past Medical History?: Yes - Past Social History Alcohol: None Drugs: Denies - CARDIAC Hx Hypercholesterolemia: Yes Hx Hypertension: Yes - PULMONARY Hx Respiratory Disorders: No - NEUROLOGICAL Hx Neurological Disorder: Yes Hx Dementia: Yes - HEENT Hx HEENT Problems: No - RENAL Hx Kidney Stones: Yes - ENDOCRINE/METABOLIC Hx Endocrine Disorders: No - HEMATOLOGICAL/ONCOLOGICAL Hx Blood Disorders: No - INTEGUMENTARY Hx Dermatological Problems: No - MUSCULOSKELETAL/RHEUMATOLOGICAL Hx Musculoskeletal Disorders: Yes Hx Falls: No Hx Unsteady Gait: Yes - GASTROINTESTINAL Hx Gastrointestinal Disorders: No - GENITOURINARY/GYNECOLOGICAL Hx Genitourinary Disorders: No - PSYCHIATRIC Hx Substance Use: No - SURGICAL HISTORY Hx Cholecystectomy: Yes - ANESTHESIA Hx Anesthesia: Yes Hx Anesthesia Reactions: No Meds Allergies/Adverse Reactions: Allergies Allergy/AdvReac Type Severity Reaction Status Date / Time codeine Allergy DIZZINESS Verified 03/09/18 17:38 - Medications Medications: Current Medications Atorvastatin Calcium (Lipitor) 40 mg PO HS [facility] Enoxaparin Sodium (Lovenox) 40 mg SC DAILY [facility]; Protocol Last Admin: 03/10/18 08:17 Dose: 40 mg HCTZ/Losartan Potassium (Hyzaar 12.5 Mg-50 Mg) 1 tab PO DAILY [facility] Sodium Chloride (Sodium Chloride 0.9%) 1,000 mls @ 100 mls/hr IV .Q10H [facility] Last Admin: 03/10/18 04:00 Dose: 100 mls/hr Ondansetron HCl (Zofran Inj) 4 mg IVP Q6 PRN PRN Reason: Nausea/Vomiting Physical Exam - Constitutional Appears: Well - Head Exam Head Exam: ATRAUMATIC, NORMAL INSPECTION, NORMOCEPHALIC - Eye Exam Eye Exam: EOMI, Normal appearance, PERRL Pupil Exam: NORMAL ACCOMODATION, PERRL - ENT Exam ENT Exam: Mucous Membranes Moist, Normal Exam - Neck Exam Neck exam: Positive for: Normal Inspection - Respiratory Exam Respiratory Exam: Clear to Auscultation Bilateral, NORMAL BREATHING PATTERN - Cardiovascular Exam Cardiovascular Exam: REGULAR RHYTHM, +S1, +S2 - GI/Abdominal Exam GI & Abdominal Exam: Normal Bowel Sounds, Soft. absent: Tenderness - Extremities Exam Extremities exam: Positive for: normal inspection - Back Exam Back exam: NORMAL INSPECTION - Neurological Exam Neurological exam: Alert, Altered, CN II-XII Intact, Normal Gait, Reflexes Normal Additional comments: Moves all extremities, follows simple commands, sensation is intact to LT/P. - Psychiatric Exam Psychiatric exam: Normal Affect, Normal Mood - Skin Skin Exam: Dry, Intact, Normal Color, Warm Results - Vital Signs Recent Vital Signs: Last Vital Signs Temp 97.8 F 03/10/18 16:00 Pulse 79 03/10/18 17:00 Resp 17 03/10/18 17:00 BP 133/96 H 03/10/18 17:00 Pulse Ox 99 03/10/18 08:13 - Labs Result Diagrams: 03/10/18 11:00 03/09/18 18:10 Labs: Laboratory Results - last 24 hr 03/09/18 03/09/18 03/10/18 17:48 18:21 04:35 WBC RBC Hgb Hct MCV MCH MCHC RDW Plt Count POC Glucose (mg/dL) 100 Hemoglobin A1c 5.7 Troponin I < 0.0120 Prolactin 03/10/18 03/10/18 03/10/18 06:24 09:30 11:00 WBC 6.9 RBC 4.44 Hgb 12.1 Hct 37.7 MCV 85.0 MCH 27.2 MCHC 32.0 L RDW 14.5 Plt Count 264 POC Glucose (mg/dL) 97 Hemoglobin A1c Troponin I < 0.0120 Prolactin 03/10/18 03/10/18 03/10/18 11:32 12:15 16:28 WBC RBC Hgb Hct MCV MCH MCHC RDW Plt Count POC Glucose (mg/dL) 87 87 Hemoglobin A1c Troponin I Prolactin 9.0 Assessment & Plan (1) Confusion Assessment and Plan: This is likely to Lewy body dementia. However, the episode of non-resp onsiveness in this patient could also be consistent with complex partial seizures. I recommend obtaining an EEG for further evaluation. Otherwise, continue supportive care and manage medical problems. Thank you for this consultation. Status: Acute
--- NOTE | 2018-03-10 22:57 | CARD ---
APPROVED REPORT Date of service: 03/10/2018 EXAM: Two-dimensional and M-mode echocardiogram with Doppler and color Doppler. Other Information Quality : GoodRhythm : NSR INDICATION Murmur 2D DIMENSIONS IVSd1.36 (0.7-1.1cm)LVDd4.12 (3.9-5.9cm) LVOT Diameter2.00 (1.8-2.4cm)PWd1.12 (0.7-1.1cm) IVSs1.00 (0.8-1.2cm)LVDs3.59 (2.5-4.0cm) FS (%) 13.0 %PWs1.17 (0.8-1.2cm) M-Mode DIMENSIONS Left Atrium (MM)4.30 (2.5-4.0cm)IVSd1.40 (0.7-1.1cm) Aortic Root3.14 (2.2-3.7cm)LVDd4.96 (4.0-5.6cm) Aortic Cusp Exc.1.36 (1.5-2.0cm)PWd1.22 (0.7-1.1cm) IVSs1.36 cmFS (%) 18 % LVDs4.05 (2.0-3.8cm)PWs1.40 cm Aortic Valve AoV Peak Vqzevann690.2cm/sAoV VTI53.1cmAO Peak GR.23mmHg LVOT Peak Gmnntpzw23.8cm/sLVOT VTI18.75cmAO Mean GR.14mmHg Mitral Valve MV E Wzpqdekc25.0cm/sMV DECEL FEIG732goPE A Hhaxfiqb835.5cm/s MV WPC57ujU/A ratio0.7MVA (PHT)3.63cm2 TDI Lateral E' Peak V8.23cm/sMedial E' Peak V5.79cm/sE/Lateral E'9.5 E/Medial E'13.5 Tricuspid Valve TR Peak Hhnoqkbs613kk/sRAP [id number] Peak Gr.25mmHg [id number] LEFT VENTRICLE The left ventricle is normal size. There is mild concentric left ventricular hypertrophy. The left ventricular systolic function is normal. The estimated ejection fraction is 60-65% No regional wall motion abnormalities noted.. Transmitral Doppler flow pattern is Grade I-abnormal relaxation pattern. No left ventricle thrombus noted on this study. There is no ventricular septal defect visualized. There is no left ventricular aneurysm. There is no mass noted in the left ventricle. RIGHT VENTRICLE The right ventricle is normal size. There is normal right ventricular wall thickness. The right ventricular systolic function is normal. ATRIA The left atrium is mildly dilated. The right atrium size is normal. The interatrial septum is intact with no evidence for an atrial septal defect. AORTIC VALVE The aortic valve is normal in structure. Calcified leaflets. Mild aortic regurgitation is present. There is moderate aortic valvular stenosis. Peak aortic velocity - 3 m/sec with calculated AV area of 1.1 cm2. There is no aortic valvular vegetation. MITRAL VALVE The mitral valve is normal in structure. There is no evidence of mitral valve prolapse. There is no mitral valve stenosis. There is mild mitral valve regurgitation noted. TRICUSPID VALVE The tricuspid valve is normal in structure. There is mild tricuspid valve regurgitation noted. RVSP is calculated at 36 mm Hg. There is no tricuspid valve prolapse or vegetation. There is no tricuspid valve stenosis. PULMONIC VALVE The pulmonary valve is normal in structure. There is trace pulmonic valvular regurgitation. There is no pulmonic valvular stenosis. GREAT VESSELS The aortic root is normal in size. The ascending aorta is normal in size. The pulmonary artery is normal. The IVC is normal in size and collapses >50% with inspiration. PERICARDIAL EFFUSION There is no pericardial effusion. There is no pleural effusion. <Conclusion> There is mild concentric left ventricular hypertrophy. The estimated ejection fraction is 60-65% Transmitral Doppler flow pattern is Grade I-abnormal relaxation pattern. The left atrium is mildly dilated. There is moderate aortic valvular stenosis. Peak aortic velocity - 3 m/sec with calculated AV area of 1.1 cm2. There is mild mitral valve regurgitation noted. There is mild tricuspid valve regurgitation noted. RVSP is calculated at 36 mm Hg.
[2018-03-11] MEDS: Sodium Chloride 0.9% 1,000 ML IV SCH ×2 (05:01→16:35)
--- NOTE | 2018-03-11 06:53 | CP.PCM.CON ---
History of Present Illness - History of Present Illness History of Present Illness: Consultation for evaluation of recurrent CVA / thromboembolic HPI: 82-year-old female with history of Lewy body dementia hypertension dyslipidemia brought to the emergency room by her daughter for evaluation of symptoms of CVA according to the daughter at bedside patient day before yesterday at 9:30 in the morning developed slurred speech and tingling of the right arm. Patient did not have episode of blacking out for about [address] Brizuela who is her primary care physician who prompted the patient to go to the emergency room for further evaluation and treatment CAT scan of the head showed moderate to severe nonspecific white matter changes with chronic bilateral basal ganglia lacunar type infarcts. Old stroke was activated patient was admitted secondary to rule out evaluation of stroke according to patient's daughter this is the third episode over the course of last 2 years. At baseline she has advanced dementia with behavioral changes she has been followed by Dr. Galicia in the past and then recently by Dr. Garcia for her cardiovascular care at baseline can walk around the house. Past medical history significant for Lewy body dementia hypertension hyperlipidemia past surgical history noncontributory social history lives with her daughter denies any history of smoking alcohol or illicit drug use family history noncontributory allergies allergic to codeine patient home medications include Xanax aspirin candesartan hydrochlorothiazide. Review of systems as stated above in the HPI all other systems reviewed and were negative. CODE STATUS full code. Review of Systems - Review of Systems Systems not reviewed;Unavailable: Acuity of Condition - Constitutional Constitutional: As Per HPI - EENT Eyes: As Per HPI Ears: As Per HPI Nose/Mouth/Throat: As Per HPI - Breasts Breasts: As Per HPI - Cardiovascular Cardiovascular: As Per HPI - Respiratory Respiratory: As Per HPI - Gastrointestinal Gastrointestinal: As Per HPI - Genitourinary Genitourinary: As Per HPI - Reproductive: Female Reproductive:Female: As Per HPI - Menstruation Menstruation: As Per HPI - Musculoskeletal Musculoskeletal: As Per HPI - Integumentary Integumentary: As Per HPI - Neurological Neurological: As Per HPI - Psychiatric Psychiatric: As Per HPI - Endocrine Endocrine: As Per HPI - Hematologic/Lymphatic Hematologic: As Per HPI Past Patient History - Past Medical History & Family History Past Medical History?: Yes - Past Social History Alcohol: None Drugs: Denies - CARDIAC Hx Hypercholesterolemia: Yes Hx Hypertension: Yes - PULMONARY Hx Respiratory Disorders: No - NEUROLOGICAL Hx Neurological Disorder: Yes Hx Dementia: Yes - HEENT Hx HEENT Problems: No - RENAL Hx Kidney Stones: Yes - ENDOCRINE/METABOLIC Hx Endocrine Disorders: No - HEMATOLOGICAL/ONCOLOGICAL Hx Blood Disorders: No - INTEGUMENTARY Hx Dermatological Problems: No - MUSCULOSKELETAL/RHEUMATOLOGICAL Hx Musculoskeletal Disorders: Yes Hx Falls: No Hx Unsteady Gait: Yes - GASTROINTESTINAL Hx Gastrointestinal Disorders: No - GENITOURINARY/GYNECOLOGICAL Hx Genitourinary Disorders: No - PSYCHIATRIC Hx Substance Use: No - SURGICAL HISTORY Hx Cholecystectomy: Yes - ANESTHESIA Hx Anesthesia: Yes Hx Anesthesia Reactions: No Meds Allergies/Adverse Reactions: Allergies Allergy/AdvReac Type Severity Reaction Status Date / Time codeine Allergy DIZZINESS Verified 03/09/18 17:38 - Medications Medications: Current Medications Atorvastatin Calcium (Lipitor) 40 mg PO HS [facility] Last Admin: 03/10/18 22:12 Dose: 40 mg Enoxaparin Sodium (Lovenox) 40 mg SC DAILY [facility]; Protocol Last Admin: 03/10/18 08:17 Dose: 40 mg HCTZ/Losartan Potassium (Hyzaar 12.5 Mg-50 Mg) 1 tab PO DAILY [facility] Sodium Chloride (Sodium Chloride 0.9%) 1,000 mls @ 100 mls/hr IV .Q10H [facility] Last Admin: 03/11/18 05:01 Dose: 100 mls/hr Ondansetron HCl (Zofran Inj) 4 mg IVP Q6 PRN PRN Reason: Nausea/Vomiting Physical Exam - Constitutional Appears: Well, Confused - Head Exam Head Exam: ATRAUMATIC, NORMAL INSPECTION, NORMOCEPHALIC - Eye Exam Eye Exam: EOMI, Normal appearance, PERRL Pupil Exam: NORMAL ACCOMODATION, PERRL - ENT Exam ENT Exam: Mucous Membranes Moist, Normal Exam - Neck Exam Neck exam: Positive for: Normal Inspection - Respiratory Exam Respiratory Exam: Clear to Auscultation Bilateral, NORMAL BREATHING PATTERN - Cardiovascular Exam Cardiovascular Exam: REGULAR RHYTHM, +S1, +S2, Systolic Murmur - GI/Abdominal Exam GI & Abdominal Exam: Normal Bowel Sounds, Soft. absent: Tenderness - Exam Bimanual exam: NORMAL BIMANUAL EXAM - Extremities Exam Extremities exam: Positive for: normal inspection - Back Exam Back exam: NORMAL INSPECTION - Neurological Exam Neurological exam: Alert, CN II-XII Intact, Normal Gait, Oriented x3, Reflexes Normal - Psychiatric Exam Psychiatric exam: Normal Affect, Normal Mood - Skin Skin Exam: Dry, Intact, Normal Color, Warm Results - Vital Signs Recent Vital Signs: Last Vital Signs Temp 98 F 03/11/18 05:00 Pulse 87 03/11/18 05:00 Resp 16 03/11/18 05:00 BP 160/57 H 03/11/18 05:00 Pulse Ox 99 03/10/18 08:13 - Labs Result Diagrams: 03/10/18 11:00 03/09/18 18:10 Labs: Laboratory Results - last 24 hr 03/09/18 03/10/18 03/10/18 18:21 09:30 11:00 WBC 6.9 RBC 4.44 Hgb 12.1 Hct 37.7 MCV 85.0 MCH 27.2 MCHC 32.0 L RDW 14.5 Plt Count 264 POC Glucose (mg/dL) Hemoglobin A1c 5.7 Troponin I < 0.0120 Prolactin 03/10/18 03/10/18 03/10/18 11:32 12:15 16:28 WBC RBC Hgb Hct MCV MCH MCHC RDW Plt Count POC Glucose (mg/dL) 87 87 Hemoglobin A1c Troponin I Prolactin 9.0 03/10/18 03/11/18 20:55 06:19 WBC RBC Hgb Hct MCV MCH MCHC RDW Plt Count POC Glucose (mg/dL) 89 83 Hemoglobin A1c Troponin I Prolactin Assessment & Plan (1) TIA (transient ischemic attack) Assessment and Plan: Etiology ? true CVA vs. 2' to lewy body dementia consider keeping patient on DAPT ( ASA + plavix ) echo telemetry neuro eval carotid duplex MRI statins arb bb Status: Acute (2) Confusion Status: Acute (3) Slurred speech Status: Acute
--- NOTE | 2018-03-11 06:56 | CP.PCM.PN ---
Subjective - Date & Time of Evaluation Date of Evaluation: 03/11/18 Time of Evaluation: 06:55 - Subjective Subjective: ms improved back to baseline Objective - Vital Signs/Intake and Output Vital Signs (last 24 hours): Temp Pulse Resp BP Pulse Ox 98 F 87 16 160/57 H 99 03/11/18 05:00 03/11/18 05:00 03/11/18 05:00 03/11/18 05:00 03/10/18 08:13 Intake and Output: 03/10/18 03/11/18 18:59 06:59 Intake Total 750 Output Total 1 800 Balance -1 -50 - Medications Medications: Current Medications Atorvastatin Calcium (Lipitor) 40 mg PO HS [facility] Last Admin: 03/10/18 22:12 Dose: 40 mg Enoxaparin Sodium (Lovenox) 40 mg SC DAILY [facility]; Protocol Last Admin: 03/10/18 08:17 Dose: 40 mg HCTZ/Losartan Potassium (Hyzaar 12.5 Mg-50 Mg) 1 tab PO DAILY [facility] Sodium Chloride (Sodium Chloride 0.9%) 1,000 mls @ 100 mls/hr IV .Q10H [facility] Last Admin: 03/11/18 05:01 Dose: 100 mls/hr Ondansetron HCl (Zofran Inj) 4 mg IVP Q6 PRN PRN Reason: Nausea/Vomiting - Labs Labs: 03/10/18 11:00 03/09/18 18:10 PT 12.0 Seconds (9.8-13.1) 03/09/18 18:10 INR 1.1 03/09/18 18:10 APTT 31.6 Seconds (25.6-37.1) 03/09/18 18:10 - Constitutional Appears: Well - Head Exam Head Exam: ATRAUMATIC, NORMAL INSPECTION, NORMOCEPHALIC - Eye Exam Eye Exam: EOMI, Normal appearance, PERRL Pupil Exam: NORMAL ACCOMODATION, PERRL - ENT Exam ENT Exam: Mucous Membranes Moist, Normal Exam - Neck Exam Neck Exam: Full ROM, Normal Inspection. absent: Lymphadenopathy - Respiratory Exam Respiratory Exam: Clear to Ausculation Bilateral, NORMAL BREATHING PATTERN - Cardiovascular Exam Cardiovascular Exam: REGULAR RHYTHM, +S1, +S2. absent: Murmur - GI/Abdominal Exam GI & Abdominal Exam: Soft, Normal Bowel Sounds. absent: Tenderness - Extremities Exam Extremities Exam: Full ROM, Normal Capillary Refill, Normal Inspection. absent: Joint Swelling, Pedal Edema - Back Exam Back Exam: NORMAL INSPECTION - Neurological Exam Neurological Exam: Alert, Awake, CN II-XII Intact, Normal Gait, Oriented x3 - Psychiatric Exam Psychiatric exam: Normal Affect, Normal Mood - Skin Skin Exam: Dry, Intact, Normal Color, Warm Assessment and Plan (1) TIA (transient ischemic attack) Assessment & Plan: would keep pt on asa + plavix would continue current BP meds ARB/HCTZ and BB - life trial statins Status: Acute (2) Confusion Status: Acute (3) Slurred speech Status: Acute
[2018-03-11] MEDS: Enoxaparin 40 mg Syringe SC SCH (08:43)
[2018-03-11] MEDS: HCTZ/Losartan 12.5/50 Tab PO SCH (08:43)
--- NOTE | 2018-03-11 10:19 | CP.PCM.PN ---
Subjective - Date & Time of Evaluation Date of Evaluation: 03/11/18 Time of Evaluation: 08:00 - Subjective Subjective: Pt seen and examined at bedside, sitting in her chair enjoying breakfast. Denies CP/SOB/N/V. Afebrile overnight Objective - Vital Signs/Intake and Output Vital Signs (last 24 hours): Temp Pulse Resp BP Pulse Ox 98.4 F 85 23 145/77 97 03/11/18 08:00 03/11/18 08:00 03/11/18 08:00 03/11/18 08:00 03/11/18 08:00 Intake and Output: 03/11/18 03/11/18 06:59 18:59 Intake Total 750 200 Output Total 800 Balance -50 200 - Medications Medications: Current Medications Atorvastatin Calcium (Lipitor) 40 mg PO HS [facility] Last Admin: 03/10/18 22:12 Dose: 40 mg Enoxaparin Sodium (Lovenox) 40 mg SC DAILY [facility]; Protocol Last Admin: 03/11/18 08:43 Dose: 40 mg HCTZ/Losartan Potassium (Hyzaar 12.5 Mg-50 Mg) 1 tab PO DAILY [facility] Last Admin: 03/11/18 08:43 Dose: 1 tab Sodium Chloride (Sodium Chloride 0.9%) 1,000 mls @ 100 mls/hr IV .Q10H [facility] Last Admin: 03/11/18 05:01 Dose: 100 mls/hr Ondansetron HCl (Zofran Inj) 4 mg IVP Q6 PRN PRN Reason: Nausea/Vomiting - Labs Labs: 03/10/18 11:00 03/09/18 18:10 PT 12.0 Seconds (9.8-13.1) 03/09/18 18:10 INR 1.1 03/09/18 18:10 APTT 31.6 Seconds (25.6-37.1) 03/09/18 18:10 - Constitutional Appears: No Acute Distress - Eye Exam Eye Exam: EOMI - ENT Exam ENT Exam: Mucous Membranes Moist - Respiratory Exam Respiratory Exam: NORMAL BREATHING PATTERN - Cardiovascular Exam Cardiovascular Exam: +S1, +S2, Murmur (systolic at bilateral 2nd intercostal space) - GI/Abdominal Exam GI & Abdominal Exam: Soft, Normal Bowel Sounds. absent: Tenderness - Neurological Exam Neurological Exam: Alert, Awake - Psychiatric Exam Psychiatric exam: Normal Affect, Normal Mood Assessment and Plan - Assessment and Plan (Free Text) Assessment: 82 year old female with PMHx Lewy body dementia, hypertension, and HLD brought in to [facility] accompanied by her daughter presents for evaluation of possible stroke. 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 Daughter reports that patient did not talk and blanked out for about 10 minutes. In the ER, patients NIHSS score was [address] showed moderate to severe nonspecific white matter changes. 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 Given extent of nonspecific white matter changes, underlying acute ischemia cannot be excluded. Code stroke was activated and patient is admitted to r/o stroke. Plan: -Echo (03/10/18): EF 60-65%; Moderate Aortic stenosis; Mild Mitral Regurge and Tricuspid Regurge -Brain MRI (03/09/18): No evidence of acute separate brain infarction. No significant mass effect. Extensive white matter signal abnormalities are identified in a pattern that may reflect dimension with Lewy bodies (clinically known in this patient) though other dimensions are a possibility as well. Diffuse cerebral atrophy chronic microangiopathy underlie this pattern. 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 -MRA Head (03/09/18): Impaired angiography of the brain remarkable only for hypoplasia versus stenosis of the proximal segment right [employer]. -CT Head (03/09/18): Moderate to severe nonspecific white matter changes. 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 Given extent of nonspecific white matter changes, underlying acute ischemia cannot be excluded. Please note that MRI with diffusion imaging is more sensitive in the detection of acute ischemic event. Fluid attenuation in the extra-axial space along the right cerebellum possibly representing arachnoid cyst. -EEG: pending -Carotid duplex: pending Slurred speech (resolved) w/ right hand tingling r/o stroke -NIHSS score 2 -Head CT, brain MRI -s/p aspirin 81 mg in ER -Swallow eval: passed in ER -c/w Aspirin and Statin -s/p IVF's D5 1/2 NS with 20 KCl @100cc/hr -neuro: eeg -f/u EEG r/o seizure Murmur -ECHO -Cardiology: Dr. Madrigal: ASA, plavix, echo, carotid duplex, mri, statin, arb, bb Hypertension: -Uncontrolled -Start HCTZ/Losartan Lewy Body Dementia -chronic -With behavior disturbance -Neuro: Dr. Vega: EEG -Psychiatry: Dr. Loredo -prolactin: 9.0 PT -deconditioning DVT prophylaxis -Lovenox 40 mg SC daily Code Status -Full code Plan dw Dr. Gina Nevarez MD PGY2
[2018-03-11 10:39] LABS: HEMOGLOBIN 12.6 g/dL (12.0-16.0); MEAN CORPUSCULAR HEMOGLOBIN 27.1 pg (27.0-31.0); MEAN CORPUSCULAR HGB CONC 32.6 g/dL (33.0-37.0); RBC 4.64 Mil/uL (3.80-5.20); RED CELL DISTRIBUTION WIDTH 14.4 % (11.5-14.5); WHITE BLOOD COUNT 8.2 K/uL (4.8-10.8)
--- NOTE | 2018-03-11 11:06 | CP.PCM.PN ---
Subjective - Date & Time of Evaluation Date of Evaluation: 03/11/18 Time of Evaluation: 11:05 - Subjective Subjective: Neurology Follow-Up Note: Mrs. Butler was evaluated this morning in the ICU with daughter at bedside. Pt is cooperative and pleasant, however, confused. Per daughter the pt's confusion and agitation has been slowly worsening over several weeks. Agitation is worse at night. Events from last night noted and reviewed. Today she is at her baseline per the daughter. Pt denies h/a, dizziness, visual changes, chest pain, sob, abd pain, n/v/d. Objective - Vital Signs/Intake and Output Vital Signs (last 24 hours): Temp Pulse Resp BP Pulse Ox 98.4 F 90 23 145/77 97 03/11/18 08:00 03/11/18 09:00 03/11/18 08:00 03/11/18 08:00 03/11/18 08:00 Intake and Output: 03/11/18 03/11/18 06:59 18:59 Intake Total 750 600 Output Total 800 300 Balance -50 300 - Medications Medications: Current Medications Atorvastatin Calcium (Lipitor) 40 mg PO HS [facility] Last Admin: 03/10/18 22:12 Dose: 40 mg Enoxaparin Sodium (Lovenox) 40 mg SC DAILY [facility]; Protocol Last Admin: 03/11/18 08:43 Dose: 40 mg HCTZ/Losartan Potassium (Hyzaar 12.5 Mg-50 Mg) 1 tab PO DAILY [facility] Last Admin: 03/11/18 08:43 Dose: 1 tab Sodium Chloride (Sodium Chloride 0.9%) 1,000 mls @ 100 mls/hr IV .Q10H [facility] Last Admin: 03/11/18 05:01 Dose: 100 mls/hr Ondansetron HCl (Zofran Inj) 4 mg IVP Q6 PRN PRN Reason: Nausea/Vomiting - Labs Labs: 03/11/18 10:15 03/09/18 18:10 PT 12.0 Seconds (9.8-13.1) 03/09/18 18:10 INR 1.1 03/09/18 18:10 APTT 31.6 Seconds (25.6-37.1) 03/09/18 18:10 - Constitutional Appears: Well, Non-toxic, No Acute Distress - Head Exam Head Exam: ATRAUMATIC, NORMAL INSPECTION, NORMOCEPHALIC - Eye Exam Eye Exam: EOMI, Normal appearance, PERRL Pupil Exam: NORMAL ACCOMODATION, PERRL - ENT Exam ENT Exam: Mucous Membranes Moist - Neck Exam Neck Exam: Full ROM, Normal Inspection - Respiratory Exam Respiratory Exam: NORMAL BREATHING PATTERN - Cardiovascular Exam Cardiovascular Exam: REGULAR RHYTHM - Neurological Exam Neurological Exam: Alert, Altered, Awake, Reflexes Normal. absent: Oriented x3 (oriented to place; not oriented to time or person) Neuro motor strength exam: Left Upper Extremity: 4 (servicer coin machines 4/5), Right Upper Extremity: 4 (servicer coin machines 4/5), Left Lower Extremity: 4, Right Lower Extremity: 4 Additional comments: speech clear and fluid. confused; aaox1; pt states the year is 1938 and cannot recall current president. able to follow commands, cooperative, pleasant. fine motor intact; sensation intact - Psychiatric Exam Additional comments: confused but cooperative, pleasant during exam - Skin Skin Exam: Normal Color Assessment and Plan (1) Confusion Assessment & Plan: Imaging reviewed: -Echo (03/10/18): EF 60-65% -Brain MRI (03/09/18): No evidence of acute separate brain infarction. No signi ficant mass effect. Extensive white matter signal abnormalities are identified in a pattern that may reflect dimension with Lewy bodies (clinically known in this patient) though other dimensions are a possibility as well. Diffuse cerebral atrophy chronic microangiopathy underlie this pattern. 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 -CT Head (03/09/18): Moderate to severe nonspecific white matter changes. 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 Given extent of nonspecific white matter changes, underlying acute ischemia cannot be excluded. Please note that MRI with diffusion imaging is more sensitive in the detection of acute ischemic event. Fluid attenuation in the extra-axial space along the right cerebellum possibly representing arachnoid cyst. Mrs. Butler's confusion is likely 2/2 Lewy Body dementia. Per daughter, she has become increasingly confused and agitated (especially at night) over the last few weeks. The questionable episode of non-responsiveness that this pt apparently had could be 2/2 complex partial seizures. -EEG: done, results pending. -PT/OT -Safety and fall precautions. -Continue supportive care and manage other medical problems. Case discussed with Dr. Vega Status: Acute
[2018-03-11 11:20] LABS: BLOOD UREA NITROGEN 9 mg/dl (7-17); GFR NON-AFRICAN AMERICAN > 60
[2018-03-11] MEDS ORDERED: Potassium Chloride 20 mEq ER Tab PO ONE (11:23)
--- NOTE | 2018-03-11 16:24 | US ---
Date of service: 03/11/2018 PROCEDURE: Duplex ultrasound of the carotid and vertebral arteries. HISTORY: hx of possible cva; Aortic stenosis COMPARISON: None available. TECHNIQUE: Grayscale and duplex Doppler evaluation of the cervical carotid and vertebral arteries were performed. The common carotid, carotid bifurcations and cervical ICA and proximal ECA were evaluated. The vertebral arteries were evaluated for gross patency and direction. FINDINGS: RIGHT CAROTID ARTERIES: Common Carotid Artery: Maximal flow velocity of 74.2 cm/s. Carotid Bifurcation: Intimal thickening is present Internal Carotid Artery:Heterogeneous plaque formation. Maximal flow velocity of 61.3 cm/s. External Carotid Artery (proximal branches): Maximal flow velocity of 79.9 cm/s. ICA/CCA Ratio: 1.6 LEFT CAROTID ARTERIES: Common Carotid Artery: Maximal flow velocity of 79.9 cm/s. Carotid Bifurcation: Intimal thickening is present Internal Carotid Artery:Heterogeneous plaque formation. Maximal flow velocity of 49.9 cm/s. External Carotid Artery (proximal branches): Maximal flow velocity of 73.5 cm/s. ICA/CCA Ratio: 0.9 VERTEBRAL ARTERIES: Right Vertebral Artery: Patent. Antegrade flow. Left Vertebral Artery: Patent. Antegrade flow. OTHER FINDINGS: Atherosclerotic calcification present. IMPRESSION: Right ICA degree of stenosis: Less than 50% Left ICA degree of stenosis: Less than 50% Reference Internal Carotid Artery (ICA) Peak Systolic Velocity (PSV) for above: 1. Less than 50% stenosis less than 125 cm/s peak systolic velocity 2. 50-69% stenosis 125-230cm/s peak systolic velocity 3. Greater than 70% but less than near occlusion greater than 230 cm/s peak systolic velocity
[2018-03-11] MEDS: metroNIDAZOLE 500mg/100ml NS 100 ML IVPB SCH (16:35)
[2018-03-12] MEDS: metroNIDAZOLE 500mg/100ml NS 100 ML IVPB SCH ×2 (00:37→08:39)
[2018-03-12 07:18] LABS: HEMOGLOBIN 10.7 g/dL (12.0-16.0); MEAN CELL VOLUME 84.6 fl (81.0-99.0); RBC 3.98 Mil/uL (3.80-5.20); RED CELL DISTRIBUTION WIDTH 14.1 % (11.5-14.5); WHITE BLOOD COUNT 6.7 K/uL (4.8-10.8)
[2018-03-12 07:20] LABS: BLOOD UREA NITROGEN 8 mg/dl (7-17); CALCIUM 8.5 mg/dL (8.4-10.2); GFR NON-AFRICAN AMERICAN > 60
[2018-03-12] MEDS ORDERED: Potassium Chloride 20 mEq ER Tab PO ONE (08:00)
[2018-03-12] MEDS: Enoxaparin 40 mg Syringe SC SCH (08:37)
[2018-03-12] MEDS: HCTZ/Losartan 12.5/50 Tab PO SCH (08:38)
--- NOTE | 2018-03-12 14:23 | CP.PCM.PN ---
<Teddy Nevarez - Last Filed: 03/12/18 14:21> Subjective - Date & Time of Evaluation Date of Evaluation: 03/12/18 Time of Evaluation: 07:30 - Subjective Subjective: Pt seen and examined while seated in her chair. Denies acute overnight events. Remains afebrile. Diarrhea resolved. Objective - Vital Signs/Intake and Output Vital Signs (last 24 hours): Temp Pulse Resp BP Pulse Ox 98.5 F 66 17 148/75 100 03/12/18 12:15 03/12/18 12:15 03/12/18 12:15 03/12/18 12:15 03/12/18 12:15 Intake and Output: 03/12/18 03/12/18 06:59 18:59 Intake Total 200 Balance 200 - Medications Medications: Current Medications Aspirin (Ecotrin) 81 mg PO DAILY [facility] Last Admin: 03/12/18 08:38 Dose: 81 mg Atorvastatin Calcium (Lipitor) 40 mg PO HS [facility] Last Admin: 03/11/18 21:53 Dose: 40 mg Carvedilol (Coreg) 6.25 mg PO Q12 [facility] Last Admin: 03/12/18 08:39 Dose: 6.25 mg Clopidogrel Bisulfate (Plavix) 75 mg PO DAILY [facility] Last Admin: 03/12/18 08:38 Dose: 75 mg Enoxaparin Sodium (Lovenox) 40 mg SC DAILY [facility]; Protocol Last Admin: 03/12/18 08:37 Dose: 40 mg HCTZ/Losartan Potassium (Hyzaar 12.5 Mg-50 Mg) 1 tab PO DAILY [facility] Last Admin: 03/12/18 08:38 Dose: 1 tab Ondansetron HCl (Zofran Inj) 4 mg IVP Q6 PRN PRN Reason: Nausea/Vomiting Trazodone HCl (Desyrel) 12.5 mg PO HS [facility] Last Admin: 03/11/18 21:53 Dose: 12.5 mg - Labs Labs: 03/12/18 05:30 03/12/18 05:30 PT 12.0 Seconds (9.8-13.1) 03/09/18 18:10 INR 1.1 03/09/18 18:10 APTT 31.6 Seconds (25.6-37.1) 03/09/18 18:10 - Constitutional Appears: No Acute Distress - Eye Exam Eye Exam: EOMI - ENT Exam ENT Exam: Mucous Membranes Moist - Respiratory Exam Respiratory Exam: Clear to Ausculation Bilateral, NORMAL BREATHING PATTERN. absent: Wheezes - Cardiovascular Exam Cardiovascular Exam: +S1, +S2, Murmur - GI/Abdominal Exam GI & Abdominal Exam: Soft, Normal Bowel Sounds. absent: Tenderness - Neurological Exam Neurological Exam: Alert, Awake - Psychiatric Exam Psychiatric exam: Normal Affect, Normal Mood Assessment and Plan - Assessment and Plan (Free Text) Assessment: 82 year old female with PMHx Lewy body dementia, hypertension, and HLD brought in to [facility] ED accompanied by her daughter presents for evaluation of possible stroke. 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 Daughter reports that patient did not talk and blanked out for about 10 minutes. In the ER, patients NIHSS score was [address] showed moderate to severe nonspecific white matter changes. 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 Given extent of nonspecific white matter changes, underlying acute ischemia cannot be excluded. Code stroke was activated and patient is admitted to r/o stroke. Plan: -Echo (03/10/18): EF 60-65%; Moderate Aortic stenosis; Mild Mitral Regurge and Tricuspid Regurge -Brain MRI (03/09/18): No evidence of acute separate brain infarction. No significant mass effect. Extensive white matter signal abnormalities are identified in a pattern that may reflect dimension with Lewy bodies (clinically known in this patient) though other dimensions are a possibility as well. Diffuse cerebral atrophy chronic microangiopathy underlie this pattern. 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 -MRA Head (03/09/18): Impaired angiography of the brain remarkable only for hypoplasia versus stenosis of the proximal segment right [employer]. -CT Head (03/09/18): Moderate to severe nonspecific white matter changes. 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 Given extent of nonspecific white matter changes, underlying acute ischemia cannot be excluded. Please note that MRI with diffusion imaging is more sensitive in the detection of acute ischemic event. Fluid attenuation in the extra-axial space along the right cerebellum possibly representing arachnoid cyst. -EEG: pending -Carotid duplex: R and L ICA degree of stenosis less than 50% Slurred speech (resolved) w/ right hand tingling r/o stroke -NIHSS score 2 -Head CT, brain MRI -s/p aspirin 81 mg in ER -Swallow eval: passed in ER -c/w Aspirin and Statin -s/p IVF's D5 1/2 NS with 20 KCl @100cc/hr -neuro: eeg; could be 2/2 to complex partial seizures -f/u EEG r/o seizure Murmur -ECHO -Cardiology: Dr. Madrigal: ASA, plavix, echo, carotid duplex, mri, statin, arb, bb Hypertension: -Uncontrolled -Start HCTZ/Losartan Lewy Body Dementia -chronic -With behavior disturbance -Neuro: Dr. Vega: EEG -Psychiatry: Dr. Loredo: avoid antipsychotics; may consider: Aricep, namenda, or depakote -Considering starting Depakote vs Trazadone -prolactin: 9.0 PT -deconditioning DVT prophylaxis -Lovenox 40 mg SC daily Code Status -Full code Future discharge planning with Daughter POA: [facility] vs home Plan dw Dr. Gina Nevarez MD PGY2 <Eliana Cole - Last Filed: 03/12/18 16:58> Objective - Vital Signs/Intake and Output Vital Signs (last 24 hours): Temp Pulse Resp BP Pulse Ox 98.2 F 72 18 136/66 100 03/12/18 16:00 03/12/18 16:00 03/12/18 16:00 03/12/18 16:00 03/12/18 12:15 Intake and Output: 03/12/18 03/12/18 06:59 18:59 Intake Total 200 Balance 200 - Medications Medications: Current Medications Aspirin (Ecotrin) 81 mg PO DAILY [facility] Last Admin: 03/12/18 08:38 Dose: 81 mg Atorvastatin Calcium (Lipitor) 40 mg PO HS [facility] Last Admin: 03/11/18 21:53 Dose: 40 mg Carvedilol (Coreg) 6.25 mg PO Q12 [facility] Last Admin: 03/12/18 08:39 Dose: 6.25 mg Clopidogrel Bisulfate (Plavix) 75 mg PO DAILY [facility] Last Admin: 03/12/18 08:38 Dose: 75 mg Enoxaparin Sodium (Lovenox) 40 mg SC DAILY [facility]; Protocol Last Admin: 03/12/18 08:37 Dose: 40 mg HCTZ/Losartan Potassium (Hyzaar 12.5 Mg-50 Mg) 1 tab PO DAILY [facility] Last Admin: 03/12/18 08:38 Dose: 1 tab Ondansetron HCl (Zofran Inj) 4 mg IVP Q6 PRN PRN Reason: Nausea/Vomiting Trazodone HCl (Desyrel) 12.5 mg PO HS [facility] Last Admin: 03/11/18 21:53 Dose: 12.5 mg - Labs Labs: 03/12/18 05:30 03/12/18 05:30 PT 12.0 Seconds (9.8-13.1) 03/09/18 18:10 INR 1.1 03/09/18 18:10 APTT 31.6 Seconds (25.6-37.1) 03/09/18 18:10 Attending/Attestation - Attestation I have personally seen and examined this patient.: Yes I have fully participated in the care of the patient.: Yes I have reviewed all pertinent clinical information, including history, physical exam and plan: Yes Notes (Text): Acute CVA ruled out Question of Absence Seizure Lewy Body Dementia - pt on 1:1 for safety - await further Neurology recommendation
[2018-03-13] MEDS ORDERED: Labetalol 5mg/ml (4ml) IVP STA ×2 (02:04→06:14)
[2018-03-13 05:59] LABS: HEMOGLOBIN 11.8 g/dL (12.0-16.0); MEAN CELL VOLUME 82.6 fl (81.0-99.0); MEAN CORPUSCULAR HEMOGLOBIN 26.6 pg (27.0-31.0); MEAN CORPUSCULAR HGB CONC 32.3 g/dL (33.0-37.0); RBC 4.42 Mil/uL (3.80-5.20); RED CELL DISTRIBUTION WIDTH 14.4 % (11.5-14.5); WHITE BLOOD COUNT 6.9 K/uL (4.8-10.8)
[2018-03-13 06:06] LABS: BLOOD UREA NITROGEN 7 mg/dl (7-17); CALCIUM 9.2 mg/dL (8.4-10.2); GFR NON-AFRICAN AMERICAN > 60
[2018-03-13] MEDS: Enoxaparin 40 mg Syringe SC SCH (09:09)
[2018-03-13] MEDS: HCTZ/Losartan 12.5/50 Tab PO SCH (09:10)
--- NOTE | 2018-03-13 09:39 | CP.PCM.PN ---
<Tobi Downing - Last Filed: 03/13/18 11:11> Subjective - Date & Time of Evaluation Date of Evaluation: 03/13/18 Time of Evaluation: 09:00 - Subjective Subjective: Patient seen and examined at bedside in morning. Patient sitting and eating breakfast, smiling and talking. Patient on 1:1, As per nurse patient still has risk of pulling IVs and fall/getting out of bed. Appetite improved. Diarrhea resolved. Patient denies any chest pain, SOB, fever, headache, or calf pain. Objective - Vital Signs/Intake and Output Vital Signs (last 24 hours): Temp Pulse Resp BP Pulse Ox 98.0 F 71 18 164/71 H 97 03/13/18 08:00 03/13/18 09:09 03/13/18 08:00 03/13/18 09:09 03/13/18 08:00 - Medications Medications: Current Medications Aspirin (Ecotrin) 81 mg PO DAILY [facility] Last Admin: 03/13/18 09:10 Dose: 81 mg Atorvastatin Calcium (Lipitor) 40 mg PO HS [facility] Last Admin: 03/12/18 21:18 Dose: 40 mg Carvedilol (Coreg) 6.25 mg PO Q12 [facility] Last Admin: 03/13/18 09:09 Dose: 6.25 mg Clopidogrel Bisulfate (Plavix) 75 mg PO DAILY [facility] Last Admin: 03/13/18 09:10 Dose: 75 mg Enoxaparin Sodium (Lovenox) 40 mg SC DAILY [facility]; Protocol Last Admin: 03/13/18 09:09 Dose: 40 mg HCTZ/Losartan Potassium (Hyzaar 12.5 Mg-50 Mg) 1 tab PO DAILY [facility] Last Admin: 03/13/18 09:10 Dose: 1 tab Losartan Potassium (Cozaar) 50 mg PO DAILY [facility] Ondansetron HCl (Zofran Inj) 4 mg IVP Q6 PRN PRN Reason: Nausea/Vomiting Trazodone HCl (Desyrel) 12.5 mg PO HS [facility] Last Admin: 03/12/18 21:18 Dose: 12.5 mg - Labs Labs: 03/13/18 05:50 03/13/18 05:50 PT 12.0 Seconds (9.8-13.1) 03/09/18 18:10 INR 1.1 03/09/18 18:10 APTT 31.6 Seconds (25.6-37.1) 03/09/18 18:10 - Constitutional Appears: Non-toxic, No Acute Distress - Head Exam Head Exam: ATRAUMATIC, NORMOCEPHALIC - Eye Exam Eye Exam: EOMI, Normal appearance - ENT Exam ENT Exam: Mucous Membranes Moist - Neck Exam Neck Exam: Full ROM - Respiratory Exam Respiratory Exam: NORMAL BREATHING PATTERN. absent: Rales, Rhonchi, Wheezes, Respiratory Distress - Cardiovascular Exam Cardiovascular Exam: RRR, +S1, +S2, Murmur - GI/Abdominal Exam GI & Abdominal Exam: Soft, Normal Bowel Sounds. absent: Distended, Guarding - Extremities Exam Extremities Exam: absent: Calf Tenderness, Pedal Edema - Neurological Exam Neurological Exam: Alert, Awake - Psychiatric Exam Psychiatric exam: absent: Anxious, Depressed Assessment and Plan - Assessment and Plan (Free Text) Assessment: 82 year old female with PMHx Lewy body dementia, hypertension, and HLD admitted for evaluation of possible stroke. 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 Daughter reports that patient did not talk and blanked out for about 10 minutes. In the ER, patients NIHSS score was [address] showed moderate to severe nonspecific white matter changes. 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 Given extent of nonspecific white matter changes, underlying acute ischemia cannot be excluded. -Echo (03/10/18): EF 60-65%; Moderate Aortic stenosis; Mild Mitral Regurge and Tricuspid Regurge -Brain MRI (03/09/18): No evidence of acute separate brain infarction. No significant mass effect. Extensive white matter signal abnormalities are identified in a pattern that may reflect dimension with Lewy bodies (clinically known in this patient) though other dimensions are a possibility as well. D iffuse cerebral atrophy chronic microangiopathy underlie this pattern. 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 -MRA Head (03/09/18): Impaired angiography of the brain remarkable only for hypoplasia VS stenosis of the proximal segment right [employer]. -CT Head (03/09/18): Moderate to severe nonspecific white matter changes. 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 Given extent o f nonspecific white matter changes, underlying acute ischemia cannot be excluded. Please note that MRI with diffusion imaging is more sensitive in the detection of acute ischemic event. Fluid attenuation in the extra-axial space along the right cerebellum possibly representing arachnoid cyst. -EEG: Normal as per Dr. Vega -Carotid duplex: R and L ICA degree of stenosis less than 50% Plan: Lewy Body Dementia -Chronic, With behavior disturbance -Neuro: Dr. Vega: EEG WNL, recommended Seroquel 50 mg 6pm -Psychiatry: Dr. Loredo: avoid antipsychotics; may consider: Aricep, namenda -Start Seroquel 50 mg at 6pm everyday. Dr. Cole spoke to daughter who is amenable for Seroquel. -Continue 1:1 for now Slurred speech (resolved) w/right hand tingling -NIHSS score 2 -Brain MRI: No eveidance of Acute brain infract. Possible lewy body dementia with diffuse cerebral atropy. -C/w Aspirin and Statin -Cardio: Dr. Madrigal: Continue ASA, plavix, statin, arb, bb -Neuro: EEG; could be 2/2 to complex partial seizures, EEG unremarkable for seizure. Hypertension -Uncontrolled -Continue HCTZ/Losartan 12.5-50 mg -Start Losartan 50 mg PO QD -Monitor vitals PT -deconditioning DVT prophylaxis -Lovenox 40 mg SC daily Code Status -Full code Future discharge planning with Daughter POA: [facility] vs home <Eliana Cole - Last Filed: 03/13/18 15:38> Objective - Vital Signs/Intake and Output Vital Signs (last 24 hours): Temp Pulse Resp BP Pulse Ox 98.2 F 71 18 129/63 95 03/13/18 11:04 03/13/18 11:26 03/13/18 11:04 03/13/18 11:20 03/13/18 11:04 Intake and Output: 03/13/18 03/13/18 06:59 18:59 Intake Total 240 Balance 240 - Medications Medications: Current Medications Aspirin (Ecotrin) 81 mg PO DAILY [facility] Last Admin: 03/13/18 09:10 Dose: 81 mg Atorvastatin Calcium (Lipitor) 40 mg PO HS [facility] Last Admin: 03/12/18 21:18 Dose: 40 mg Carvedilol (Coreg) 6.25 mg PO Q12 [facility] Last Admin: 03/13/18 09:09 Dose: 6.25 mg Clopidogrel Bisulfate (Plavix) 75 mg PO DAILY [facility] Last Admin: 03/13/18 09:10 Dose: 75 mg Enoxaparin Sodium (Lovenox) 40 mg SC DAILY [facility]; Protocol Last Admin: 03/13/18 09:09 Dose: 40 mg Famotidine (Pepcid) 20 mg PO HS [facility] HCTZ/Losartan Potassium (Hyzaar 12.5 Mg-50 Mg) 1 tab PO DAILY [facility] Last Admin: 03/13/18 09:10 Dose: 1 tab Losartan Potassium (Cozaar) 50 mg PO DAILY [facility] Last Admin: 03/13/18 11:20 Dose: 50 mg Ondansetron HCl (Zofran Inj) 4 mg IVP Q6 PRN PRN Reason: Nausea/Vomiting Quetiapine Fumarate (Seroquel) 25 mg PO DAILY@1800 [facility] Trazodone HCl (Desyrel) 12.5 mg PO HS [facility] Last Admin: 03/12/18 21:18 Dose: 12.5 mg - Labs Labs: 03/13/18 05:50 03/13/18 05:50 PT 12.0 Seconds (9.8-13.1) 03/09/18 18:10 INR 1.1 03/09/18 18:10 APTT 31.6 Seconds (25.6-37.1) 03/09/18 18:10 Attending/Attestation - Attestation I have personally seen and examined this patient.: Yes I have fully participated in the care of the patient.: Yes I have reviewed all pertinent clinical information, including history, physical exam and plan: Yes Notes (Text): Acute CVA ruled out Dementia with behavioural changes - Pt continues to be on 1:1 for safety - tries to get out of bed on her own - Neuro rec Seroquel - will start low dose Seroquel at 6 pm - discussed with daughter who agreed to the plan - plan to d/c pt to [facility] once behavior better and off 1:1
[2018-03-13] MEDS ORDERED: Potassium Chloride 20 mEq/15 ml LIQ UD PO ONE (12:08)
--- NOTE | 2018-03-13 13:26 | CP.PCM.PCO ---
Physician Communication Note - Physician Communication Note Physician Communication Note: Patient continues to have agitation at night, added Seroquel 25 mg QHS.
[2018-03-14 06:16] LABS: BLOOD UREA NITROGEN 12 mg/dl (7-17); CALCIUM 9.1 mg/dL (8.4-10.2); GFR NON-AFRICAN AMERICAN > 60
[2018-03-14] MEDS: Enoxaparin 40 mg Syringe SC SCH (08:56)
[2018-03-14] MEDS: HCTZ/Losartan 12.5/50 Tab PO SCH (09:01)
--- NOTE | 2018-03-14 09:18 | CP.PCM.PN ---
Subjective - Date & Time of Evaluation Date of Evaluation: 03/14/18 Time of Evaluation: 09:15 - Subjective Subjective: intermittent delerium echo - mod Objective - Vital Signs/Intake and Output Vital Signs (last 24 hours): Temp Pulse Resp BP Pulse Ox 98.3 F 75 20 177/94 H 97 03/14/18 08:14 03/14/18 08:54 03/14/18 08:14 03/14/18 08:54 03/14/18 08:14 - Medications Medications: Current Medications Aspirin (Ecotrin) 81 mg PO DAILY [facility] Last Admin: 03/14/18 08:55 Dose: 81 mg Atorvastatin Calcium (Lipitor) 40 mg PO HS [facility] Last Admin: 03/13/18 22:50 Dose: Not Given Carvedilol (Coreg) 6.25 mg PO Q12 [facility] Last Admin: 03/14/18 08:54 Dose: 6.25 mg Clopidogrel Bisulfate (Plavix) 75 mg PO DAILY [facility] Last Admin: 03/14/18 08:56 Dose: 75 mg Enoxaparin Sodium (Lovenox) 40 mg SC DAILY [facility]; Protocol Last Admin: 03/14/18 08:56 Dose: 40 mg Famotidine (Pepcid) 20 mg PO HS [facility] Last Admin: 03/13/18 22:51 Dose: Not Given HCTZ/Losartan Potassium (Hyzaar 12.5 Mg-50 Mg) 2 tab PO DAILY [facility] Last Admin: 03/14/18 09:01 Dose: 2 tab Ondansetron HCl (Zofran Inj) 4 mg IVP Q6 PRN PRN Reason: Nausea/Vomiting Quetiapine Fumarate (Seroquel) 25 mg PO DAILY@1800 [facility] Last Admin: 03/13/18 17:52 Dose: 25 mg Trazodone HCl (Desyrel) 12.5 mg PO HS [facility] Last Admin: 03/13/18 22:51 Dose: Not Given - Labs Labs: 03/13/18 05:50 03/14/18 04:30 PT 12.0 Seconds (9.8-13.1) 03/09/18 18:10 INR 1.1 03/09/18 18:10 APTT 31.6 Seconds (25.6-37.1) 03/09/18 18:10 - Constitutional Appears: Well - Head Exam Head Exam: ATRAUMATIC, NORMAL INSPECTION, NORMOCEPHALIC - Eye Exam Eye Exam: EOMI, Normal appearance, PERRL Pupil Exam: NORMAL ACCOMODATION, PERRL - ENT Exam ENT Exam: Mucous Membranes Moist, Normal Exam - Neck Exam Neck Exam: Full ROM, Normal Inspection. absent: Lymphadenopathy - Respiratory Exam Respiratory Exam: Clear to Ausculation Bilateral, NORMAL BREATHING PATTERN - Cardiovascular Exam Cardiovascular Exam: REGULAR RHYTHM, +S1, +S2, Murmur - GI/Abdominal Exam GI & Abdominal Exam: Soft, Normal Bowel Sounds. absent: Tenderness - Extremities Exam Extremities Exam: Full ROM, Normal Capillary Refill, Normal Inspection. absent: Joint Swelling, Pedal Edema - Back Exam Back Exam: NORMAL INSPECTION - Neurological Exam Neurological Exam: Alert, Awake, CN II-XII Intact, Normal Gait, Oriented x3 - Psychiatric Exam Psychiatric exam: Normal Affect, Normal Mood - Skin Skin Exam: Dry, Intact, Normal Color, Warm Assessment and Plan (1) TIA (transient ischemic attack) Status: Acute (2) Confusion Status: Acute (3) Slurred speech Status: Acute (4) Moderate aortic stenosis Status: Acute
--- NOTE | 2018-03-14 11:12 | CP.PCM.PN ---
Subjective - Date & Time of Evaluation Date of Evaluation: 03/14/18 Time of Evaluation: 10:00 - Subjective Subjective: Patient seen and evaluated at bedside in Tele. 1:1 resumed last evening due to agitation and patient trying to get OOB. Patient refuse to take Trazodone and Coreg last night. Patient sitting in bed comfortably, talking with Home health aid and 1:1 nurse. Ate breakfast, appetite WNL. Denies any fever, chills, N/V/D, abdominal pain, urinary complains. Denies any complains. Objective - Vital Signs/Intake and Output Vital Signs (last 24 hours): Temp Pulse Resp BP Pulse Ox 98.3 F 75 20 177/94 H 97 03/14/18 08:14 03/14/18 08:54 03/14/18 08:14 03/14/18 08:54 03/14/18 08:14 - Medications Medications: Current Medications Aspirin (Ecotrin) 81 mg PO DAILY [facility] Last Admin: 03/14/18 08:55 Dose: 81 mg Atorvastatin Calcium (Lipitor) 40 mg PO [facility] Last Admin: 03/13/18 22:50 Dose: Not Given Carvedilol (Coreg) 6.25 mg PO Q12 [facility] Last Admin: 03/14/18 08:54 Dose: 6.25 mg Clopidogrel Bisulfate (Plavix) 75 mg PO DAILY [facility] Last Admin: 03/14/18 08:56 Dose: 75 mg Enoxaparin Sodium (Lovenox) 40 mg SC DAILY [facility]; Protocol Last Admin: 03/14/18 08:56 Dose: 40 mg Famotidine (Pepcid) 20 mg PO [facility] Last Admin: 03/13/18 22:51 Dose: Not Given HCTZ/Losartan Potassium (Hyzaar 12.5 Mg-50 Mg) 2 tab PO DAILY [facility] Last Admin: 03/14/18 09:01 Dose: 2 tab Ondansetron HCl (Zofran Inj) 4 mg IVP Q6 PRN PRN Reason: Nausea/Vomiting Quetiapine Fumarate (Seroquel) 25 mg PO DAILY@1800 [facility] Last Admin: 03/13/18 17:52 Dose: 25 mg Trazodone HCl (Desyrel) 12.5 mg PO [facility] Last Admin: 03/13/18 22:51 Dose: Not Given - Labs Labs: 03/13/18 05:50 03/14/18 04:30 PT 12.0 Seconds (9.8-13.1) 03/09/18 18:10 INR 1.1 03/09/18 18:10 APTT 31.6 Seconds (25.6-37.1) 03/09/18 18:10 - Constitutional Appears: Well, No Acute Distress - Head Exam Head Exam: ATRAUMATIC, NORMOCEPHALIC - Eye Exam Eye Exam: EOMI, Normal appearance - ENT Exam ENT Exam: Mucous Membranes Moist - Neck Exam Neck Exam: Full ROM - Respiratory Exam Respiratory Exam: Decreased Breath Sounds. absent: Rales, Rhonchi, Wheezes, Respiratory Distress - Cardiovascular Exam Cardiovascular Exam: +S1, +S2, Murmur - GI/Abdominal Exam GI & Abdominal Exam: Soft, Normal Bowel Sounds. absent: Distended, Tenderness - Extremities Exam Extremities Exam: absent: Calf Tenderness, Pedal Edema, Tenderness - Neurological Exam Neurological Exam: Alert, Awake, Oriented x3 - Psychiatric Exam Psychiatric exam: Normal Affect, Normal Mood - Skin Skin Exam: Dry, Intact, Warm Assessment and Plan - Assessment and Plan (Free Text) Assessment: Assessment: 82 year old female with PMHx Lewy body dementia, hypertension, and HLD admitted for evaluation slurred speech and tingling of right arm. Daughter reports that patient did not talk and blanked out for about [address] consistent with Moderate to severe nonspecific white matter changes. 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 EEG WNL. Speech and right arm symptoms resolved. Patient less likely to have acute stroke or seizure based on results. Neuro consulted. -Echo (03/10/18): EF 60-65%; Moderate Aortic stenosis; Mild Mitral Regurge and Tricuspid Regurge -Brain MRI (03/09/18): No evidence of acute separate brain infarction. No significant mass effect. Extensive white matter signal abnormalities are id entified in a pattern that may reflect dimension with Lewy bodies (clinically known in this patient) though other dimensions are a possibility as well. Diffuse cerebral atrophy chronic microangiopathy underlie this pattern. 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 -MRA Head (03/09/18): Impaired angiography of the brain remarkable only for hypoplasia VS stenosis of the proximal segment right [employer]. -CT Head (03/09/18): Moderate to severe nonspecific white matter changes. 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 Given extent of nonspecific white matter changes, underlying acute ischemia cannot be excluded. Please note that MRI with diffusion imaging is more sensitive in the detection of acute ischemic event. Fluid attenuation in the extra-axial space along the right cerebellum possibly representing arachnoid cyst. -EEG: Normal as per Dr. Vega -Carotid duplex: R and L ICA degree of stenosis less than 50% Plan: Lewy Body Dementia with behavior disturbance -Chronic -Neuro: Dr. Vega: EEG WNL, recommended Seroquel 25 mg 6pm -Psychiatry: Dr. Loredo: avoid antipsychotics; may consider: Aricep, namenda -Continue Seroquel 25 mg at 6pm -Continue Trazodone 50 mg QHS -On 1:1 for now, Will give trial to take patient off of 1:1 during daytime while home health aid/daughter present. Hypertension -Uncontrolled -Continue Coreg 6.25 mg BID -Increase HCTZ/Losartan from 12.5-50 to 25-100 mg -D/C Losartan 50 mg -Monitor vitals Slurred speech (resolved) w/right hand tingling -Brain MRI: No eveidance of Acute brain infract. Possible lewy body dementia with diffuse cerebral atrophy. -C/w Aspirin and Statin -Cardio: Dr. Madrigal: Continue ASA, plavix, statin, arb, bb -Neuro: EEG unremarkable for seizure. Deconditioning -Continue PT DVT prophylaxis -Lovenox 40 mg SC daily Code Status -Full code Patient to be discharged to [facility] once off of 1:1 for 24 hours. Daughter aware.
--- NOTE | 2018-03-14 13:50 | CP.PCM.PN ---
Subjective - Date & Time of Evaluation Date of Evaluation: 03/14/18 Time of Evaluation: 13:50 - Subjective Subjective: Neurology Follow-Up Note: Mrs. Butler was evaluated this morning. Pt is cooperative and pleasant, however, has periods of confused. Today pt is pleasant and has no complaints. She states that she slept very well last night and feels refreshed. She denies h/a, dizziness, visual changes, chest pain, sob, abd pain, n/v/d. Charts from weekend reviewed; events noted of agitation during the late afternoon/evening hours. Objective - Vital Signs/Intake and Output Vital Signs (last 24 hours): Temp Pulse Resp BP Pulse Ox 97.7 F 73 20 151/77 H 97 03/14/18 11:50 03/14/18 11:50 03/14/18 11:50 03/14/18 11:50 03/14/18 11:50 - Medications Medications: Current Medications Aspirin (Ecotrin) 81 mg PO DAILY [facility] Last Admin: 03/14/18 08:55 Dose: 81 mg Atorvastatin Calcium (Lipitor) 40 mg PO [facility] Last Admin: 03/13/18 22:50 Dose: Not Given Carvedilol (Coreg) 6.25 mg PO Q12 [facility] Last Admin: 03/14/18 08:54 Dose: 6.25 mg Clopidogrel Bisulfate (Plavix) 75 mg PO DAILY [facility] Last Admin: 03/14/18 08:56 Dose: 75 mg Enoxaparin Sodium (Lovenox) 40 mg SC DAILY [facility]; Protocol Last Admin: 03/14/18 08:56 Dose: 40 mg Famotidine (Pepcid) 20 mg PO [facility] Last Admin: 03/13/18 22:51 Dose: Not Given HCTZ/Losartan Potassium (Hyzaar 12.5 Mg-50 Mg) 2 tab PO DAILY [facility] Last Admin: 03/14/18 09:01 Dose: 2 tab Ondansetron HCl (Zofran Inj) 4 mg IVP Q6 PRN PRN Reason: Nausea/Vomiting Quetiapine Fumarate (Seroquel) 25 mg PO DAILY@1800 [facility] Last Admin: 03/13/18 17:52 Dose: 25 mg Trazodone HCl (Desyrel) 12.5 mg PO [facility] Last Admin: 03/13/18 22:51 Dose: Not Given - Labs Labs: 03/13/18 05:50 03/14/18 04:30 PT 12.0 Seconds (9.8-13.1) 03/09/18 18:10 INR 1.1 03/09/18 18:10 APTT 31.6 Seconds (25.6-37.1) 03/09/18 18:10 - Constitutional Appears: Well, Non-toxic, No Acute Distress - Head Exam Head Exam: ATRAUMATIC, NORMAL INSPECTION, NORMOCEPHALIC - Eye Exam Eye Exam: EOMI, Normal appearance, PERRL Pupil Exam: NORMAL ACCOMODATION - ENT Exam ENT Exam: Mucous Membranes Moist - Neck Exam Neck Exam: Full ROM, Normal Inspection - Respiratory Exam Respiratory Exam: NORMAL BREATHING PATTERN - Extremities Exam Extremities Exam: Full ROM, Normal Inspection. absent: Calf Tenderness, Pedal Edema - Neurological Exam Neurological Exam: Alert, Awake, CN II-XII Intact, Reflexes Normal. absent: Oriented x3 Neuro motor strength exam: Left Upper Extremity: 5, Right Upper Extremity: 5, Left Lower Extremity: 5, Right Lower Extremity: 5 Additional comments: awake, alert; aao to place. able to follow commands, cooperative, pleasant. speech clear and fluid. strength improved since last encounter. fine motor intact; sensation intact. cannot recall 5 items when asked to. - Psychiatric Exam Psychiatric exam: Normal Affect, Normal Mood (pleasant and cooperative today) - Skin Skin Exam: Normal Color Assessment and Plan (1) Confusion Assessment & Plan: Imaging reviewed: -Carotid Doppler (03/11/18): Right ICA degree of stenosis: Less than 50%; Left ICA degree of stenosis: Less than 50% -Echo (03/10/18): EF 60-65% -Brain MRI (03/09/18): No evidence of acute separate brain infarction. No significant mass effect. Extensive white matter signal abnormalities are identified in a pattern that may reflect dimension with Lewy bodies (clinically known in this patient) though other dimensions are a possibility as well. Diffuse cerebral atrophy chronic microangiopathy underlie this pattern. 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 -MRA Head (03/09/18): Impaired angiography of the brain remarkable only for hypoplasia versus stenosis of the proximal segment right INSPECTOR SALVAGE. -CT Head (03/09/18): Moderate to severe nonspecific white matter changes. 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 Given extent of nonspecific white matter changes, underlying acute ischemia cannot be excluded. Please note that MRI with diffusion imaging is more sensitive in the detection of acute ischemic event. Fluid attenuation in the extra-axial space along the right cerebellum possibly representing arachnoid cyst. Mrs. Butler's confusion is likely 2/2 Lewy Body dementia. Pt seems to sundown, but this is also occurring at home. -EEG normal -PT/OT -Safety and fall precautions. -Continue Seroquel 25 mg PO daily at 1800. -Continue supportive care and manage other medical problems. Case discussed with Dr. Vega Status: Acute
[2018-03-15] MEDS: HCTZ/Losartan 12.5/50 Tab PO SCH (09:34)
[2018-03-15] MEDS: Enoxaparin 40 mg Syringe SC SCH (09:34)
--- NOTE | 2018-03-15 10:59 | CP.PCM.PN ---
Subjective - Date & Time of Evaluation Date of Evaluation: 03/15/18 Time of Evaluation: 10:59 - Subjective Subjective: Neurology Follow-Up Note: Mrs. Butler was evaluated this morning. Daughter at bedside today; she verbalizes concerns with her mother's confusion today and took off work this week to be present with pt in the hospital. Pt is confused and uncooperative today. Events from last night noted; pt refused medications and was agitated. Per pt she does not want to be bothered now or examined and wants to rest. She denies h/a, dizziness, visual changes, chest pain, sob, abd pain, n/v/d. Objective - Vital Signs/Intake and Output Vital Signs (last 24 hours): Temp Pulse Resp BP Pulse Ox 97.6 F 95 H 18 141/85 95 03/15/18 07:53 03/15/18 09:34 03/15/18 07:53 03/15/18 09:34 03/15/18 07:53 Intake and Output: 03/15/18 03/15/18 06:59 18:59 Intake Total 0 Balance 0 - Medications Medications: Current Medications Aspirin (Ecotrin) 81 mg PO DAILY [facility] Last Admin: 03/15/18 09:34 Dose: Not Given Atorvastatin Calcium (Lipitor) 40 mg PO HS [facility] Last Admin: 03/14/18 22:05 Dose: Not Given Carvedilol (Coreg) 6.25 mg PO Q12 [facility] Last Admin: 03/15/18 09:34 Dose: Not Given Clopidogrel Bisulfate (Plavix) 75 mg PO DAILY [facility] Last Admin: 03/15/18 09:35 Dose: Not Given Enoxaparin Sodium (Lovenox) 40 mg SC DAILY [facility]; Protocol Last Admin: 03/15/18 09:34 Dose: Not Given Famotidine (Pepcid) 20 mg PO HS [facility] Last Admin: 03/14/18 22:05 Dose: Not Given HCTZ/Losartan Potassium (Hyzaar 12.5 Mg-50 Mg) 2 tab PO DAILY [facility] Last Admin: 03/15/18 09:34 Dose: Not Given Ondansetron HCl (Zofran Inj) 4 mg IVP Q6 PRN PRN Reason: Nausea/Vomiting Quetiapine Fumarate (Seroquel) 25 mg PO DAILY@1800 [facility] Last Admin: 03/14/18 17:51 Dose: 25 mg Trazodone HCl (Desyrel) 12.5 mg PO HS [facility] Last Admin: 03/14/18 22:05 Dose: Not Given - Labs Labs: 03/13/18 05:50 03/14/18 04:30 PT 12.0 Seconds (9.8-13.1) 03/09/18 18:10 INR 1.1 03/09/18 18:10 APTT 31.6 Seconds (25.6-37.1) 03/09/18 18:10 - Constitutional Appears: Non-toxic, No Acute Distress, Confused - Head Exam Head Exam: ATRAUMATIC, NORMAL INSPECTION, NORMOCEPHALIC - Eye Exam Eye Exam: EOMI, Normal appearance - ENT Exam ENT Exam: Mucous Membranes Moist - Neck Exam Neck Exam: Full ROM, Normal Inspection - Respiratory Exam Respiratory Exam: NORMAL BREATHING PATTERN - Extremities Exam Extremities Exam: Full ROM, Normal Inspection Additional comments: moving all extremities independently. - Back Exam Back Exam: Full ROM - Neurological Exam Neurological Exam: Altered. absent: Oriented x3 Additional comments: refused to be examined today, uncooperative, confused moves all extremities independently in bed speech clear - Psychiatric Exam Additional comments: confused, uncooperative - Skin Skin Exam: Normal Color Assessment and Plan (1) Confusion Assessment & Plan: Imaging reviewed: -Carotid Doppler (03/11/18): Right ICA degree of stenosis: Less than 50%; Left ICA degree of stenosis: Less than 50% -Echo (03/10/18): EF 60-65% -Brain MRI (03/09/18): No evidence of acute separate brain infarction. No significant mass effect. Extensive white matter signal abnormalities are identified in a pattern that may reflect dimension with Lewy bodies (clinically known in this patient) though other dimensions are a possibility as well. Diffuse cerebral atrophy chronic microangiopathy underlie this pattern. 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 -CT Head (03/09/18): Moderate to severe nonspecific white matter changes. 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 Given extent of nonspecific white matter changes, underlying acute ischemia cannot be excluded. Please note that MRI with diffusion imaging is more sensitive in the detection of acute ischemic event. Fluid attenuation in the extra-axial space along the right cerebellum possibly representing arachnoid cyst. Mrs. Butler's confusion is likely 2/2 Lewy Body dementia. -EEG normal -Continue PT/OT -Safety and fall precautions. -Urine collection per primary team to r/o acute infection causing increased confusion and agitation. Please consider straight cath for UA and U C&S as the pt seems to be incontinent today--daughter in agreement. -Continue Seroquel 25 mg PO daily at 1800. After discussion with daughter, she may want the Seroquel to be held, however, she will think about it first. -Continue supportive care and manage other medical problems. Case discussed with Dr. Vega Status: Acute
--- NOTE | 2018-03-15 12:11 | CP.PCM.PN ---
<Tobi Downing - Last Filed: 03/15/18 14:55> Subjective - Date & Time of Evaluation Date of Evaluation: 03/15/18 Time of Evaluation: 10:00 - Subjective Subjective: Patient sleeping while rounded early in the morning. Did not took her night medications last night. Patient was seen later in the morning. Daughter and environmental health aide present who reports that she had 3 episodes of involuntary urination today. After waking up patient able to speak in full sentence, smiling and talking about 'people chasing her last night'. Patient still gets intermittent confusion and agitated especially after . Denies any chest pain, SOB, headache, abdominal pain, N/V/D/F/C. Objective - Vital Signs/Intake and Output Vital Signs (last 24 hours): Temp Pulse Resp BP Pulse Ox 98.2 F 80 18 155/69 H 95 03/15/18 11:50 03/15/18 11:50 03/15/18 11:50 03/15/18 11:50 03/15/18 11:50 Intake and Output: 03/15/18 03/15/18 06:59 18:59 Intake Total 0 Balance 0 - Medications Medications: Current Medications Aspirin (Ecotrin) 81 mg PO DAILY [facility] Last Admin: 03/15/18 09:34 Dose: Not Given Atorvastatin Calcium (Lipitor) 40 mg PO HS [facility] Last Admin: 03/14/18 22:05 Dose: Not Given Carvedilol (Coreg) 6.25 mg PO Q12 [facility] Last Admin: 03/15/18 09:34 Dose: Not Given Clopidogrel Bisulfate (Plavix) 75 mg PO DAILY [facility] Last Admin: 03/15/18 09:35 Dose: Not Given Enoxaparin Sodium (Lovenox) 40 mg SC DAILY [facility]; Protocol Last Admin: 03/15/18 09:34 Dose: Not Given Famotidine (Pepcid) 20 mg PO HS [facility] Last Admin: 03/14/18 22:05 Dose: Not Given HCTZ/Losartan Potassium (Hyzaar 12.5 Mg-50 Mg) 2 tab PO DAILY [facility] Last Admin: 03/15/18 09:34 Dose: Not Given Ondansetron HCl (Zofran Inj) 4 mg IVP Q6 PRN PRN Reason: Nausea/Vomiting Quetiapine Fumarate (Seroquel) 25 mg PO DAILY@1800 [facility] Last Admin: 03/14/18 17:51 Dose: 25 mg Trazodone HCl (Desyrel) 12.5 mg PO HS [facility] Last Admin: 03/14/18 22:05 Dose: Not Given - Labs Labs: 03/13/18 05:50 03/14/18 04:30 PT 12.0 Seconds (9.8-13.1) 03/09/18 18:10 INR 1.1 03/09/18 18:10 APTT 31.6 Seconds (25.6-37.1) 03/09/18 18:10 - Constitutional Appears: No Acute Distress, Confused - Head Exam Head Exam: ATRAUMATIC, NORMOCEPHALIC - Eye Exam Eye Exam: EOMI - ENT Exam ENT Exam: Mucous Membranes Moist - Neck Exam Neck Exam: absent: Tenderness - Respiratory Exam Respiratory Exam: Decreased Breath Sounds, NORMAL BREATHING PATTERN. absent: Rales, Rhonchi, Wheezes, Respiratory Distress - Cardiovascular Exam Cardiovascular Exam: +S1, +S2, Murmur. absent: Tachycardia - GI/Abdominal Exam GI & Abdominal Exam: Soft, Normal Bowel Sounds. absent: Distended, Tenderness - Extremities Exam Extremities Exam: absent: Calf Tenderness, Pedal Edema, Tenderness - Neurological Exam Neurological Exam: Alert, Awake - Psychiatric Exam Psychiatric exam: Normal Affect, Normal Mood - Skin Skin Exam: Dry, Intact, Normal Color, Warm Assessment and Plan - Assessment and Plan (Free Text) Assessment: 82 year old female with PMHx Lewy body dementia, hypertension, and HLD admitted for evaluation slurred speech, tingling of right arm and blanked out for about [address] consistent with Moderate to severe nonspecific white matter changes. 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 EEG WNL. Speech and right arm symptoms resolved. Patient less likely to have acute stroke or seizure based on results. Neuro consulted. Daughter is power of traffic law attorney who does not want treatment plans discussed with brother. -Echo (03/10/18): EF 60-65%; Moderate Aortic stenosis; Mild Mitral Regurge and Tricuspid Regurge -Brain MRI (03/09/18): No evidence of acute separate brain infarction. No significant mass effect. Extensive white matter signal abnormalities are lona ntified in a pattern that may reflect dimension with Lewy bodies (clinically known in this patient) though other dimensions are a possibility as well. Diffuse cerebral atrophy chronic microangiopathy underlie this pattern. 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 -CT Head (03/09/18): Moderate to severe nonspecific white matter changes. 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 Given extent of nonspecific white matter changes, underlying acute ischemia cannot be excluded. Please note that MRI with diffusion imaging is more sensitive in the detection of acute ischemic event. Fluid attenuation in the extra-axial space along the right cerebellum possibly representing arachnoid cyst. -EEG: Normal as per Dr. Vega -Carotid duplex: R and L ICA degree of stenosis less than 50% Plan: Plan: Lewy Body Dementia with behavior disturbance -Chronic, continues to have sundowning effect -Neuro: Dr. Vega: EEG WNL, recommended Seroquel 25 mg 6pm -Psychiatry: Dr. Loredo: avoid antipsychotics; may consider: Aricep, namenda -Continue Seroquel 25 mg at 6pm -Continue Trazodone 50 mg QHS(Did not take last night) -1:1 D/Collins, Currently on Avasys Hypertension -Uncontrolled -Continue Coreg 6.25 mg BID(Did not took evening dose) -Continue HCTZ/Losartan 25-100 mg -Monitor vitals Slurred speech (resolved) w/right hand tingling -Brain MRI: No evidence of Acute brain infract. Possible lewy body dementia with diffuse cerebral atrophy. -C/w Aspirin and Statin -Cardio: Dr. Madrigal: Continue ASA, plavix, statin, arb, bb -Neuro: EEG unremarkable for seizure. Deconditioning -Continue PT DVT prophylaxis -Lovenox 40 mg SC daily Code Status -Full code <ColeEliana - Last Filed: 03/15/18 16:39> Objective - Vital Signs/Intake and Output Vital Signs (last 24 hours): Temp Pulse Resp BP Pulse Ox 97.7 F 87 18 108/71 97 03/15/18 16:05 03/15/18 16:05 03/15/18 16:05 03/15/18 16:05 03/15/18 16:05 Intake and Output: 03/15/18 03/15/18 06:59 18:59 Intake Total 0 Balance 0 - Medications Medications: Current Medications Aspirin (Ecotrin) 81 mg PO DAILY [facility] Last Admin: 03/15/18 09:34 Dose: Not Given Atorvastatin Calcium (Lipitor) 40 mg PO HS [facility] Last Admin: 03/14/18 22:05 Dose: Not Given Carvedilol (Coreg) 6.25 mg PO Q12 [facility] Last Admin: 03/15/18 09:34 Dose: Not Given Clopidogrel Bisulfate (Plavix) 75 mg PO DAILY [facility] Last Admin: 03/15/18 09:35 Dose: Not Given Enoxaparin Sodium (Lovenox) 40 mg SC DAILY [facility]; Protocol Last Admin: 03/15/18 09:34 Dose: Not Given Famotidine (Pepcid) 20 mg PO HS [facility] Last Admin: 03/14/18 22:05 Dose: Not Given HCTZ/Losartan Potassium (Hyzaar 12.5 Mg-50 Mg) 2 tab PO DAILY [facility] Last Admin: 03/15/18 09:34 Dose: Not Given Ceftriaxone Sodium 1 gm/ (Sodium Chloride) 100 mls @ 100 mls/hr IVPB Q12 [facility]; Protocol Ondansetron HCl (Zofran Inj) 4 mg IVP Q6 PRN PRN Reason: Nausea/Vomiting Quetiapine Fumarate (Seroquel) 25 mg PO DAILY@1800 [facility] Last Admin: 03/14/18 17:51 Dose: 25 mg Trazodone HCl (Desyrel) 12.5 mg PO HS [facility] Last Admin: 03/14/18 22:05 Dose: Not Given - Labs Labs: 03/13/18 05:50 03/14/18 04:30 PT 12.0 Seconds (9.8-13.1) 03/09/18 18:10 INR 1.1 03/09/18 18:10 APTT 31.6 Seconds (25.6-37.1) 03/09/18 18:10 Attending/Attestation - Attestation I have personally seen and examined this patient.: Yes I have fully participated in the care of the patient.: Yes I have reviewed all pertinent clinical information, including history, physical exam and plan: Yes Notes (Text): UTI - start IV Ceftriaxone empirically - Urine c/s
[2018-03-15 15:33] LABS: SQUAMOUS EPITHIAL 10 /hpf (0-5); URINE BACTERIA MOD (<OCC); URINE BILIRUBIN NEGATIVE (NEGATIVE); URINE BLOOD MODERATE (NEGATIVE); URINE CLARITY CLOUDY (Clear); URINE COLOR YELLOW (YELLOW); URINE GLUCOSE (UA) NEG (NEGATIVE); URINE LEUKOCYTE ESTERASE LARGE Leu/uL (Negative); URINE PROTEIN NEGATIVE (NEGATIVE); URINE UROBILINOGEN 0.2-1.0 mg/dL (0.2-1.0)
[2018-03-16] MEDS: Enoxaparin 40 mg Syringe SC SCH (08:25)
[2018-03-16] MEDS: HCTZ/Losartan 12.5/50 Tab PO SCH (08:30)
--- NOTE | 2018-03-16 10:51 | CP.PCM.PN ---
Subjective - Date & Time of Evaluation Date of Evaluation: 03/16/18 Time of Evaluation: 10:49 - Subjective Subjective: Neurology Follow-Up Note: Mrs. Butler was evaluated this morning sitting OOB to chair. Daughter at bedside today. Per daughter the pt didn't sleep well last night and was agitated again during the evening hours. Pt is being treated now for a UTI. Today pt states that she feels tired. Denies h/a, dizziness, visual changes, chest pain, sob, abd pain, n/v/d. Objective - Vital Signs/Intake and Output Vital Signs (last 24 hours): Temp Pulse Resp BP Pulse Ox 97.3 F L 69 20 143/66 98 03/16/18 08:18 03/16/18 08:29 03/16/18 08:18 03/16/18 08:29 03/16/18 08:18 - Medications Medications: Current Medications Aspirin (Ecotrin) 81 mg PO DAILY [facility] Last Admin: 03/16/18 08:27 Dose: 81 mg Atorvastatin Calcium (Lipitor) [address] [facility] Last Admin: 03/15/18 22:05 Dose: 40 mg Carvedilol (Coreg) 3.125 mg PO Q12 [facility] Clopidogrel Bisulfate (Plavix) 75 mg PO DAILY [facility] Last Admin: 03/16/18 08:25 Dose: 75 mg Enoxaparin Sodium (Lovenox) 40 mg SC DAILY [facility]; Protocol Last Admin: 03/16/18 08:25 Dose: 40 mg Famotidine (Pepcid) [address] [facility] Last Admin: 03/15/18 22:07 Dose: 20 mg HCTZ/Losartan Potassium (Hyzaar 12.5 Mg-50 Mg) 2 tab PO DAILY [facility] Last Admin: 03/16/18 08:30 Dose: 2 tab Ceftriaxone Sodium 1 gm/ (Sodium Chloride) 100 mls @ 100 mls/hr IVPB Q12 [facility]; Protocol Last Admin: 03/16/18 08:24 Dose: 100 mls/hr Ondansetron HCl (Zofran Inj) 4 mg IVP Q6 PRN PRN Reason: Nausea/Vomiting Quetiapine Fumarate (Seroquel) 25 mg PO DAILY@1800 [facility] Last Admin: 03/15/18 17:07 Dose: 25 mg Trazodone HCl (Desyrel) 12.[address] [facility] Last Admin: 03/15/18 22:04 Dose: 12.5 mg - Labs Labs: 03/13/18 05:50 03/14/18 04:30 PT 12.0 Seconds (9.8-13.1) 03/09/18 18:10 INR 1.1 03/09/18 18:10 APTT 31.6 Seconds (25.6-37.1) 03/09/18 18:10 - Constitutional Appears: Well, Non-toxic, No Acute Distress - Head Exam Head Exam: ATRAUMATIC, NORMAL INSPECTION, NORMOCEPHALIC - Eye Exam Eye Exam: Normal appearance Pupil Exam: NORMAL ACCOMODATION - ENT Exam ENT Exam: Mucous Membranes Moist - Neck Exam Neck Exam: Full ROM, Normal Inspection - Respiratory Exam Respiratory Exam: NORMAL BREATHING PATTERN - Extremities Exam Extremities Exam: Full ROM. absent: Calf Tenderness, Pedal Edema - Back Exam Back Exam: Full ROM - Neurological Exam Neurological Exam: Alert, Awake, CN II-XII Intact, Reflexes Normal Neuro motor strength exam: Left Upper Extremity: 4, Right Upper Extremity: 4, Left Lower Extremity: 4, Right Lower Extremity: 4 - Psychiatric Exam Additional comments: calm, cooperative, pleasant - Skin Skin Exam: Normal Color Assessment and Plan (1) Confusion Assessment & Plan: Imaging reviewed: -Carotid Doppler (03/11/18): Right ICA degree of stenosis: Less than 50%; Left ICA degree of stenosis: Less than 50% -Echo (03/10/18): EF 60-65% -Brain MRI (03/09/18): No evidence of acute separate brain infarction. No significant mass effect. Extensive white matter signal abnormalities are identified in a pattern that may reflect dimension with Lewy bodies (clinically known in this patient) though other dimensions are a possibility as well. Diffuse cerebral atrophy chronic microangiopathy underlie this pattern. 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 -CT Head (03/09/18): Moderate to severe nonspecific white matter changes. 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 Given extent of nonspecific white matter changes, underlying acute ischemia cannot be excluded. Please note that MRI with diffusion imaging is more sensitive in the detection of acute ischemic event. Fluid attenuation in the extra-axial space along the right cerebellum possibly representing arachnoid cyst. Mrs. Butler's confusion is likely 2/2 Lewy Body dementia. Her increase in confusion since Wednesday evening likely related to UTI (see ua and urine c&s results). -EEG normal -Continue PT/OT -Safety and fall precautions. -Continue treatment of infectious process per primary team. -Continue Seroquel 25 mg PO daily at 1800. -Continue supportive care. Case discussed with Dr. Vega Status: Acute
--- NOTE | 2018-03-16 13:08 | CP.PCM.DIS ---
<Tobi Downing - Last Filed: 03/16/18 14:28> Provider - Provider Date of Admission: 03/09/18 18:16 Attending physician: Alicia Cardona DO Consults: 03/09/18 17:47 Stroke Team Consult Stat Comment: Consulting Provider: Neurohospitalist Consulting Physician: NEUROHOSP Neurohospitalist for Consult: Reece Vega Neurohospitalist for Consult: Jessica Pereira Reason for Consult: slurred speech resolved 03/10/18 11:59 Psychiatry Consult Routine Comment: Consulting Provider: Violeta Loredo Consulting Physician: Violeta Loredo Reason for Consult: dementia with behavioral disturbances 03/10/18 12:16 Cardiology Consult Routine Comment: Consulting Provider: Vignesh Madrigal Consulting Physician: Vignesh Madrigal Reason for Consult: murmur Time Spent in preparation of Discharge (in minutes): 35 Diagnosis - Discharge Diagnosis (1) Lewy body dementia with behavioral disturbance Status: Acute (2) Confusion Status: Acute (3) UTI (urinary tract infection) Status: Acute (4) Hypertension Status: Acute Hospital Course - Lab Results Lab Results: Micro Results 03/15/18 15:10 Urine Urine Culture - Preliminary Gram Negative Jignesh 03/13/18 15:00 Naris MRSA Culture (Admit) - Final MRSA NOT DETECTED 03/11/18 16:23 Stool Stool Culture - Final NO SALMONELLA, SHIGELLA OR CAMPYLOBACTER ISOLATED. 03/09/18 07:33 Naris MRSA Culture (Admit) - Final MRSA NOT DETECTED Most Recent Lab Values WBC 6.9 K/uL (4.8-10.8) 03/13/18 05:50 RBC 4.42 Mil/uL (3.80-5.20) 03/13/18 05:50 Hgb 11.8 g/dL (12.0-16.0) L 03/13/18 05:50 Hct 36.5 % (34.0-47.0) 03/13/18 05:50 MCV 82.6 fl (81.0-99.0) D 03/13/18 05:50 MCH 26.6 pg (27.0-31.0) L 03/13/18 05:50 MCHC 32.3 g/dL (33.0-37.0) L 03/13/18 05:50 RDW 14.4 % (11.5-14.5) 03/13/18 05:50 Plt Count 251 K/uL (130-400) 03/13/18 05:50 MPV 8.6 fl (7.2-11.7) 03/09/18 18:10 Neut % (Auto) 71.1 % (50.0-75.0) 03/09/18 18:10 Lymph % (Auto) 17.6 % (20.0-40.0) L 03/09/18 18:10 Rock % (Auto) 8.3 % (0.0-10.0) 03/09/18 18:10 Eos % (Auto) 1.6 % (0.0-4.0) 03/09/18 18:10 Baso % (Auto) 1.4 % (0.0-2.0) 03/09/18 18:10 Neut # (Auto) 5.1 K/uL (1.8-7.0) 03/09/18 18:10 Lymph # (Auto) 1.3 K/uL (1.0-4.3) 03/09/18 18:10 Rock # (Auto) 0.6 K/uL (0.0-0.8) 03/09/18 18:10 Eos # (Auto) 0.1 K/uL (0.0-0.7) 03/09/18 18:10 Baso # (Auto) 0.1 K/uL (0.0-0.2) 03/09/18 18:10 PT 12.0 Seconds (9.8-13.1) 03/09/18 18:10 INR 1.1 03/09/18 18:10 APTT 31.6 Seconds (25.6-37.1) 03/09/18 18:10 Sodium 141 mmol/l (132-148) 03/14/18 04:30 Potassium 3.7 MMOL/L (3.6-5.0) 03/14/18 04:30 Chloride 106 mmol/L (98-107) 03/14/18 04:30 Carbon Dioxide 27 mmol/L (22-30) 03/14/18 04:30 Anion Gap 12 (10-20) 03/14/18 04:30 BUN 12 mg/dl (7-17) 03/14/18 04:30 Creatinine 0.8 mg/dl (0.7-1.2) 03/14/18 04:30 Est GFR ( Amer) > 60 03/14/18 04:30 Est GFR (Non-Af Amer) > 60 03/14/18 04:30 POC Glucose (mg/dL) 100 mg/dL (65-110) 03/15/18 21:14 Random Glucose 90 mg/dL (65-105) 03/14/18 04:30 Hemoglobin A1c 5.7 % (4.2-6.5) 03/09/18 18:21 Calcium 9.1 mg/dL (8.4-10.2) 03/14/18 04:30 Magnesium 1.7 MG/DL (1.6-2.3) 03/14/18 04:30 Total Bilirubin 0.4 mg/dl (0.2-1.3) 03/09/18 18:10 AST 21 U/L (14-36) 03/09/18 18:10 ALT 20 U/L (9-52) 03/09/18 18:10 Alkaline Phosphatase 75 U/L (38-126) 03/09/18 18:10 Troponin I < 0.0120 ng/mL (0.00-0.120) 03/10/18 09:30 Total Protein 7.0 G/DL (6.3-8.2) 03/09/18 18:10 Albumin 3.9 g/dL (3.5-5.0) 03/09/18 18:10 Globulin 3.1 gm/dL (2.2-3.9) 03/09/18 18:10 Albumin/Globulin Ratio 1.2 (1.0-2.1) 03/09/18 18:10 Triglycerides 109 mg/DL (0-149) 03/09/18 18:10 Cholesterol 198 mg/dL (0-199) 03/09/18 18:10 LDL Cholesterol Direct 131 mg/dL (0-129) H 03/09/18 18:10 HDL Cholesterol 41 MG/DL (30-70) 03/09/18 18:10 TSH 3rd Generation 3.82 mIU/ML (0.46-4.68) 03/14/18 04:30 Prolactin 9.0 ng/mL (3.0-18.9) 03/10/18 12:15 Urine Color Yellow (YELLOW) 03/15/18 15:10 Urine Clarity Cloudy (Clear) 03/15/18 15:10 Urine pH 6.0 (5.0-8.0) 03/15/18 15:10 Ur Specific [place] 1.016 (1.003-1.030) 03/15/18 15:10 Urine Protein Negative mg/dL (NEGATIVE) 03/15/18 15:10 Urine Glucose (UA) Neg mg/dL (NEGATIVE) 03/15/18 15:10 Urine Ketones Negative mg/dL (NEGATIVE) 03/15/18 15:10 Urine Blood Moderate (NEGATIVE) 03/15/18 15:10 Urine Nitrate Positive (NEGATIVE) H 03/15/18 15:10 Urine Bilirubin Negative (NEGATIVE) 03/15/18 15:10 Urine Urobilinogen 0.2-1.0 mg/dL (0.2-1.0) 03/15/18 15:10 Ur Leukocyte Esterase Large Marquez/uL (Negative) 03/15/18 15:10 Urine RBC (Auto) 13 /hpf (0-3) H 03/15/18 15:10 Urine Microscopic WBC 187 /hpf (0-5) H 03/15/18 15:10 Ur Squamous Epith Cells 10 /hpf (0-5) H 03/15/18 15:10 Urine Bacteria Mod (<OCC) H 03/15/18 15:10 C. difficile Ag & Toxin Negative (NEGATIVE) 03/11/18 16:23 Blood Type O POSITIVE 03/09/18 18:45 Blood Type Confirm O POSITIVE 03/09/18 20:02 Antibody Screen Negative 03/09/18 18:45 BBK History Checked No verified bt 03/09/18 18:45 - Hospital Course Hospital Course: 82 year old female with PMHx Lewy body dementia, hypertension, and HLD admitted for evaluation slurred speech, tingling of right arm and episode of blanked out for about 10 minutes. Neurologist and taper operator consulted. 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 Brain MRI with No evidence of acute separate brain infarction. EEG WNL. Carotid US and MRA head done. Patient received ASA, Plavix, Coreg, Atorvastatin, Losartan/HCTZ, Trazodone and Seroquel. Patient's speech improved however patient continued to have behavioral charges including agitation especially at night. Patient was on 1:1 which was D/Collins 48 hours prior to discharged and patient kept on Avasys monitoring. Patient also had dysuria, increased frequency on 03/14, diagnosed with UTI and started on ceftriaxone. Patient stable to be discharged to TCU and will complete 7 days of IV antibiotics with Rocephin and continue PT. Discharge Medications - Ceftriaxone 1 gm Q12hr x 7 days - Seroquel 25 mg PO daily @ 6:00 pm - Plavix 75 mg PO daily - ASA 81 mg PO dialy - Atorvastatin 40 mg PO daily - Coreg 3.125 mg PO BID - Trazodone 12.5 mg PO HS - HCTZ/Losartan 25-100 mg PO daily Discharge Exam - Head Exam Head Exam: ATRAUMATIC, NORMAL INSPECTION, NORMOCEPHALIC - Eye Exam Eye Exam: EOMI - ENT Exam ENT Exam: Mucous Membranes Moist - Respiratory Exam Respiratory Exam: Decreased Breath Sounds. absent: Rales, Rhonchi, Wheezes, Respiratory Distress - Cardiovascular Exam Cardiovascular Exam: +S1, +S2, Systolic Murmur - GI/Abdominal Exam GI & Abdominal Exam: Normal Bowel Sounds. absent: Distended, Tenderness - Extremities Exam Additional comments: Calf Nontender, No pedal edema - Neurological Exam Neurological exam: Alert - Psychiatric Exam Psychiatric exam: Normal Affect, Normal Mood - Skin Skin Exam: Dry, Normal Color, Warm Discharge Plan - Discharge Medications Prescriptions: cefTRIAXone 1 gm [Rocephin 1 gram IVPB (D5W)] 1 gm IVPB Q12 7 Days bag - Follow Up Plan Condition: FAIR Disposition: REHAB FACILITY/REHAB UNIT Instructions: Transient Ischemic Attack (DC) Additional Instructions: Patient to go to TCU Referrals: Joanne Capps MD [Family Provider] - <Eliana Cole - Last Filed: 03/16/18 15:38> Provider - Provider Date of Admission: 03/09/18 18:16 Attending physician: Alicia Cardona DO Consults: 03/09/18 17:47 Stroke Team Consult Stat Comment: Consulting Provider: Neurohospitalist Consulting Physician: NEUROHOSP Neurohospitalist for Consult: Reece Vega Neurohospitalist for Consult: Jessica Pereira Reason for Consult: slurred speech resolved 03/10/18 11:59 Psychiatry Consult Routine Comment: Consulting Provider: Violeta Loredo Consulting Physician: Violeta Loredo Reason for Consult: dementia with behavioral disturbances 03/10/18 12:16 Cardiology Consult Routine Comment: Consulting Provider: Vignesh Madrigal Consulting Physician: Vignesh Madrigal Reason for Consult: murmur 03/16/18 14:19 Infectious Disease Consult Routine Comment: Consulting Provider: Jeannette Menard Consulting Physician: Jeannette Menard Reason for Consult: UTI Hospital Course - Lab Results Lab Results: Micro Results 03/15/18 15:10 Urine Urine Culture - Preliminary Gram Negative Jignesh 03/13/18 15:00 Naris MRSA Culture (Admit) - Final MRSA NOT DETECTED 03/11/18 16:23 Stool Stool Culture - Final NO SALMONELLA, SHIGELLA OR CAMPYLOBACTER ISOLATED. 03/09/18 07:33 Naris MRSA Culture (Admit) - Final MRSA NOT DETECTED Most Recent Lab Values WBC 6.9 K/uL (4.8-10.8) 03/13/18 05:50 RBC 4.42 Mil/uL (3.80-5.20) 03/13/18 05:50 Hgb 11.8 g/dL (12.0-16.0) L 03/13/18 05:50 Hct 36.5 % (34.0-47.0) 03/13/18 05:50 MCV 82.6 fl (81.0-99.0) D 03/13/18 05:50 MCH 26.6 pg (27.0-31.0) L 03/13/18 05:50 MCHC 32.3 g/dL (33.0-37.0) L 03/13/18 05:50 RDW 14.4 % (11.5-14.5) 03/13/18 05:50 Plt Count 251 K/uL (130-400) 03/13/18 05:50 MPV 8.6 fl (7.2-11.7) 03/09/18 18:10 Neut % (Auto) 71.1 % (50.0-75.0) 03/09/18 18:10 Lymph % (Auto) 17.6 % (20.0-40.0) L 03/09/18 18:10 Rock % (Auto) 8.3 % (0.0-10.0) 03/09/18 18:10 Eos % (Auto) 1.6 % (0.0-4.0) 03/09/18 18:10 Baso % (Auto) 1.4 % (0.0-2.0) 03/09/18 18:10 Neut # (Auto) 5.1 K/uL (1.8-7.0) 03/09/18 18:10 Lymph # (Auto) 1.3 K/uL (1.0-4.3) 03/09/18 18:10 Rock # (Auto) 0.6 K/uL (0.0-0.8) 03/09/18 18:10 Eos # (Auto) 0.1 K/uL (0.0-0.7) 03/09/18 18:10 Baso # (Auto) 0.1 K/uL (0.0-0.2) 03/09/18 18:10 PT 12.0 Seconds (9.8-13.1) 03/09/18 18:10 INR 1.1 03/09/18 18:10 APTT 31.6 Seconds (25.6-37.1) 03/09/18 18:10 Sodium 141 mmol/l (132-148) 03/14/18 04:30 Potassium 3.7 MMOL/L (3.6-5.0) 03/14/18 04:30 Chloride 106 mmol/L (98-107) 03/14/18 04:30 Carbon Dioxide 27 mmol/L (22-30) 03/14/18 04:30 Anion Gap 12 (10-20) 03/14/18 04:30 BUN 12 mg/dl (7-17) 03/14/18 04:30 Creatinine 0.8 mg/dl (0.7-1.2) 03/14/18 04:30 Est GFR ( Amer) > 60 03/14/18 04:30 Est GFR (Non-Af Amer) > 60 03/14/18 04:30 POC Glucose (mg/dL) 100 mg/dL (65-110) 03/15/18 21:14 Random Glucose 90 mg/dL (65-105) 03/14/18 04:30 Hemoglobin A1c 5.7 % (4.2-6.5) 03/09/18 18:21 Calcium 9.1 mg/dL (8.4-10.2) 03/14/18 04:30 Magnesium 1.7 MG/DL (1.6-2.3) 03/14/18 04:30 Total Bilirubin 0.4 mg/dl (0.2-1.3) 03/09/18 18:10 AST 21 U/L (14-36) 03/09/18 18:10 ALT 20 U/L (9-52) 03/09/18 18:10 Alkaline Phosphatase 75 U/L (38-126) 03/09/18 18:10 Troponin I < 0.0120 ng/mL (0.00-0.120) 03/10/18 09:30 Total Protein 7.0 G/DL (6.3-8.2) 03/09/18 18:10 Albumin 3.9 g/dL (3.5-5.0) 03/09/18 18:10 Globulin 3.1 gm/dL (2.2-3.9) 03/09/18 18:10 Albumin/Globulin Ratio 1.2 (1.0-2.1) 03/09/18 18:10 Triglycerides 109 mg/DL (0-149) 03/09/18 18:10 Cholesterol 198 mg/dL (0-199) 03/09/18 18:10 LDL Cholesterol Direct 131 mg/dL (0-129) H 03/09/18 18:10 HDL Cholesterol 41 MG/DL (30-70) 03/09/18 18:10 TSH 3rd Generation 3.82 mIU/ML (0.46-4.68) 03/14/18 04:30 Prolactin 9.0 ng/mL (3.0-18.9) 03/10/18 12:15 Urine Color Yellow (YELLOW) 03/15/18 15:10 Urine Clarity Cloudy (Clear) 03/15/18 15:10 Urine pH 6.0 (5.0-8.0) 03/15/18 15:10 Ur Specific [place] 1.016 (1.003-1.030) 03/15/18 15:10 Urine Protein Negative mg/dL (NEGATIVE) 03/15/18 15:10 Urine Glucose (UA) Neg mg/dL (NEGATIVE) 03/15/18 15:10 Urine Ketones Negative mg/dL (NEGATIVE) 03/15/18 15:10 Urine Blood Moderate (NEGATIVE) 03/15/18 15:10 Urine Nitrate Positive (NEGATIVE) H 03/15/18 15:10 Urine Bilirubin Negative (NEGATIVE) 03/15/18 15:10 Urine Urobilinogen 0.2-1.0 mg/dL (0.2-1.0) 03/15/18 15:10 Ur Leukocyte Esterase Large Marquez/uL (Negative) 03/15/18 15:10 Urine RBC (Auto) 13 /hpf (0-3) H 03/15/18 15:10 Urine Microscopic WBC 187 /hpf (0-5) H 03/15/18 15:10 Ur Squamous Epith Cells 10 /hpf (0-5) H 03/15/18 15:10 Urine Bacteria Mod (<OCC) H 03/15/18 15:10 C. difficile Ag & Toxin Negative (NEGATIVE) 03/11/18 16:23 Blood Type O POSITIVE 03/09/18 18:45 Blood Type Confirm O POSITIVE 03/09/18 20:02 Antibody Screen Negative 03/09/18 18:45 BBK History Checked No verified bt 03/09/18 18:45 Attending/Attestation - Attestation I have personally seen and examined this patient.: Yes I have fully participated in the care of the patient.: Yes I have reviewed all pertinent clinical information, including history, physical exam and plan: Yes
--- NOTE | 2018-03-16 14:24 | CP.PCM.CON ---
History of Present Illness - History of Present Illness History of Present Illness: Infectious Disease Consultation Note- asked to see this patient at the request of for UTI. HPI- Polly is a 82year old female with PMH of Lewy Body dementia , HTN, HLD who was brought in for rule out stroke based on her symptoms of staring off and not speaking for 10 minutes. She has had extensive neurological work up since her admission here by the neurologist and no acute neurological findings so far and as per neurologist's note her confusion most likely secondary to her lewy body dementia and as per daughter she was having incontinence and foul smelling urine yesterday and hence her urine was checked and she is found to have prelim GNR UTI and hence I'm asked to evaluate and help with antibiotic management. As per pt's daughter she also has decreased appetite. denies any abdominal pian or any back pain. does not c/o dysurea but has more frequent urination. afebrile. Review of Systems - Review of Systems Review of Systems: ROS- somewhat confused but does answer some questions when asked. She denies any abd. pain , denies any back pain, denies any fever , + urinary frequency, no dysurea. Past Patient History - Past Medical History & Family History Past Medical History?: Yes - Past Social History Alcohol: None Drugs: Denies Home Situation {Lives}: With Family - CARDIAC Hx Hypercholesterolemia: Yes Hx Hypertension: Yes - PULMONARY Hx Respiratory Disorders: No - NEUROLOGICAL Hx Neurological Disorder: Yes Hx Dementia: Yes - HEENT Hx HEENT Problems: No - RENAL Hx Kidney Stones: Yes - ENDOCRINE/METABOLIC Hx Endocrine Disorders: No - HEMATOLOGICAL/ONCOLOGICAL Hx Blood Disorders: No - INTEGUMENTARY Hx Dermatological Problems: No - MUSCULOSKELETAL/RHEUMATOLOGICAL Hx Musculoskeletal Disorders: Yes Hx Falls: No Hx Unsteady Gait: Yes - GASTROINTESTINAL Hx Gastrointestinal Disorders: No - GENITOURINARY/GYNECOLOGICAL Hx Genitourinary Disorders: No - PSYCHIATRIC Hx Substance Use: No - SURGICAL HISTORY Hx Cholecystectomy: Yes - ANESTHESIA Hx Anesthesia: Yes Hx Anesthesia Reactions: No Meds Home Medications: Home Medication List Medication Instructions Recorded Confirmed Type Atorvastatin [Lipitor] 40 mg PO HS tab 03/16/18 Rx Carvedilol [Coreg] 3.125 mg PO Q12 tab 03/16/18 Rx Clopidogrel [Plavix] 75 mg PO DAILY tab 12/19/18 Rx QUEtiapine [Seroquel] 25 mg PO DAILY@1800 tab 03/16/18 Rx cefTRIAXone 1 gm [Rocephin 1 gram 1 gm IVPB Q12 7 Days bag 03/16/18 Rx IVPB (D5W)] traZODone [Desyrel] 12.5 mg PO HS tab 03/16/18 Rx Allergies/Adverse Reactions: Allergies Allergy/AdvReac Type Severity Reaction Status Date / Time codeine Allergy DIZZINESS Verified 03/09/18 17:38 - Medications Medications: Current Medications Aspirin (Ecotrin) 81 mg PO DAILY [facility] Last Admin: 03/16/18 08:27 Dose: 81 mg Atorvastatin Calcium (Lipitor) 40 mg PO HS [facility] Last Admin: 03/15/18 22:05 Dose: 40 mg Carvedilol (Coreg) 3.125 mg PO Q12 [facility] Clopidogrel Bisulfate (Plavix) 75 mg PO DAILY [facility] Last Admin: 03/16/18 08:25 Dose: 75 mg Enoxaparin Sodium (Lovenox) 40 mg SC DAILY [facility]; Protocol Last Admin: 03/16/18 08:25 Dose: 40 mg Famotidine (Pepcid) 20 mg PO HS [facility] Last Admin: 03/15/18 22:07 Dose: 20 mg HCTZ/Losartan Potassium (Hyzaar 12.5 Mg-50 Mg) 2 tab PO DAILY [facility] Last Admin: 03/16/18 08:30 Dose: 2 tab Ceftriaxone Sodium 1 gm/ (Sodium Chloride) 100 mls @ 100 mls/hr IVPB Q12 [facility]; Protocol Last Admin: 03/16/18 08:24 Dose: 100 mls/hr Ondansetron HCl (Zofran Inj) 4 mg IVP Q6 PRN PRN Reason: Nausea/Vomiting Quetiapine Fumarate (Seroquel) 25 mg PO DAILY@1800 [facility] Last Admin: 03/15/18 17:07 Dose: 25 mg Trazodone HCl (Desyrel) 12.5 mg PO [facility] Last Admin: 03/15/18 22:04 Dose: 12.5 mg Physical Exam - Constitutional Appears: No Acute Distress - Head Exam Head Exam: ATRAUMATIC - Eye Exam Eye Exam: PERRL - ENT Exam Additional comments: dry oral mucosa - Neck Exam Neck exam: Positive for: Full Rom - Respiratory Exam Respiratory Exam: NORMAL BREATHING PATTERN Additional comments: no wheezing no crackles - Cardiovascular Exam Cardiovascular Exam: RRR, +S1, +S2 - GI/Abdominal Exam GI & Abdominal Exam: Normal Bowel Sounds, Soft Additional comments: NT, ND - Extremities Exam Extremities exam: Positive for: normal inspection - Neurological Exam Additional comments: awake but has baseline confusion but can answer questions Results - Vital Signs Recent Vital Signs: Last Vital Signs Temp 97.0 F L 03/16/18 12:07 Pulse 75 03/16/18 12:07 Resp 20 03/16/18 12:07 BP 140/67 03/16/18 12:07 Pulse Ox 98 03/16/18 12:07 - Labs Result Diagrams: 03/13/18 05:50 03/14/18 04:30 Labs: Laboratory Results - last 24 hr 03/15/18 03/15/18 15:10 21:14 POC Glucose (mg/dL) 100 Urine Color Yellow Urine Clarity Cloudy Urine pH 6.0 Ur Specific [place] 1.016 Urine Protein Negative Urine Glucose (UA) Neg Urine Ketones Negative Urine Blood Moderate Urine Nitrate Positive H Urine Bilirubin Negative Urine Urobilinogen 0.2-1.0 Ur Leukocyte Esterase Large Urine RBC (Auto) 13 H Urine Microscopic WBC 187 H Ur Squamous Epith Cells 10 H Urine Bacteria Mod H Laboratory Results - last 72 hr 03/14/18 03/15/18 03/15/18 04:30 15:10 21:14 Sodium 141 Potassium 3.7 Chloride 106 Carbon Dioxide 27 Anion Gap 12 BUN 12 Creatinine 0.8 Est GFR ( Amer) > 60 Est GFR (Non-Af Amer) > 60 POC Glucose (mg/dL) 100 Random Glucose 90 Calcium 9.1 Magnesium 1.7 TSH 3rd Generation 3.82 Urine Color Yellow Urine Clarity Cloudy Urine pH 6.0 Ur Specific [place] 1.016 Urine Protein Negative Urine Glucose (UA) Neg Urine Ketones Negative Urine Blood Moderate Urine Nitrate Positive H Urine Bilirubin Negative Urine Urobilinogen 0.2-1.0 Ur Leukocyte Esterase Large Urine RBC (Auto) 13 H Urine Microscopic WBC 187 H Ur Squamous Epith Cells 10 H Urine Bacteria Mod H Microbiology 03/15/18 15:10 Urine Urine Culture - Preliminary Gram Negative Jignesh 03/13/18 15:00 Naris MRSA Culture (Admit) - Final MRSA NOT DETECTED 03/11/18 16:23 Stool Stool Culture - Final NO SALMONELLA, SHIGELLA OR CAMPYLOBACTER ISOLATED. 03/09/18 07:33 Naris MRSA Culture (Admit) - Final MRSA NOT DETECTED Accession No. : [id number] Patient Name / ID : VILMA MARCANO / [id number] Exam Date : 03/09/2018 18:05:00 ( Approved ) Study Comment : Sex / Age : F 82Y Creator : Jose Anderson MD Dictator : Jose Anderson MD Leaf Sorter : Manager Line : Jose Anderson MD Approver2 : Report Date : 03/10/2018 08:40:01 My Comment : Date of service: 03/09/2018 HISTORY: Code Stroke COMPARISON: No prior. FINDINGS: LUNGS: No active pulmonary disease. PLEURA: Left pleural effusion difficult to completely exclude. None is seen the right. No pneumothorax bilaterally. CARDIOVASCULAR: No aortic atherosclerotic calcification present. Normal cardiac size. No pulmonary vascular congestion. OSSEOUS STRUCTURES: Scoliotic thoracolumbar spinal deformity distorts the mediastinum. VISUALIZED UPPER ABDOMEN: Normal. OTHER FINDINGS: None. IMPRESSION: Questionable small pleural effusion. None is seen the right. No acute pulmonary disease bilaterally. No acute cardiovascular changes. Accession No. : [id number] Patient Name / ID : VILMA MARCANO / [id number] Exam Date : 03/09/2018 19:08:19 ( Approved ) Study Comment : Sex / Age : Y Creator : Jose Anderson MD Dictator : Jose Anderson MD Leaf Sorter : Manager Line : Jose Anderson MD Approver2 : Report Date : 03/10/2018 11:48:45 My Comment : Date of service: 03/09/2018 PROCEDURE: MRI BRAIN WITHOUT CONTRAST HISTORY: abnormal ct head; dementia with Lewy bodies. COMPARISON: Unenhanced head CT 03/09/2018. TECHNIQUE: Multiplanar, multisequence MR images of the brain were obtained without intravenous contrast enhancement. FINDINGS: HEMORRHAGE: None DWI: No evidence of an acute or early subacute infarction. BRAIN PARENCHYMA: Expansion of the ventricular sulcal sternal spaces appreciated compatible diffuse cerebral atrophy. A 6.2 x 1.5 cm likely arachnoid cyst is appreciated favored over atypical cisterna magna occupying the midline and right posterior fossa inferiorly and posteriorly. No restricted diffusion associated with this finding. This excludes an epidermoid. Limited mass effect is exerted at the right cerebellar hemisphere posteriorly. Extensive white matter signal abnormalities appreciated throughout the subcortical and centrum semiovale white matter of the upper frontoparietal distribution minimally affecting the temporal lobes and mildly affecting the bilateral occipital lobes. Occasional chronic lacune a are identified in the periventricular white matter as well. The pattern could reflect patient's clinical history of dementia with Lewy bodies though Alzheimer's and other dementias can present similarly. Brainstem is unremarkable and there is no midline shift. VENTRICLES: Unremarkable. No hydrocephalus. CRANIUM: Unremarkable. ORBITS: Grossly unremarkable. PARANASAL SINUSES/MASTOIDS: Clear VASCULAR SYSTEM: Skull base flow voids intact. OTHER FINDINGS: None. IMPRESSION: No evidence of acute separate brain infarction. No significant mass effect. Extensive white matter signal abnormalities are identified in a pattern that may reflect dimension with Lewy bodies (clinically known in this patient) though other dimensions are a possibility as well. Diffuse cerebral atrophy chronic microangiopathy underlie this pattern. 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 Assessment & Plan (1) Confusion Status: Acute (2) Lewy body dementia with behavioral disturbance Status: Acute (3) UTI (urinary tract infection) Status: Acute - Assessment and Plan (Free Text) Assessment: A/P- 82 year old female with Lewy Body dementia who is now found to have GNR UTI . afebrile normal wbc count UA- positive Urine cx- prelim >100,000 GNR. Plan- await ID and sensitivity of the GNR in Urine cx. for now advise to continue with IV ceftriaxone that was initiated by the primary team pending Id and sens of the GNR. all labs and imaging reviewed. case d/w patient and her daughter who is at bedside. Also d/w . Thank you for allowing me to take part in the care of this patient. will f/u.
--- NOTE | 2018-03-16 15:08 | CP.PCM.PN ---
Subjective - Date & Time of Evaluation Date of Evaluation: 03/16/18 Time of Evaluation: 14:58 - Subjective Subjective: Mod Objective - Vital Signs/Intake and Output Vital Signs (last 24 hours): Temp Pulse Resp BP Pulse Ox 97.0 F L 75 20 140/67 98 03/16/18 12:07 03/16/18 12:07 03/16/18 12:07 03/16/18 12:07 03/16/18 12:07 - Medications Medications: Current Medications Aspirin (Ecotrin) 81 mg PO DAILY [facility] Last Admin: 03/16/18 08:27 Dose: 81 mg Atorvastatin Calcium (Lipitor) 40 mg PO HS [facility] Last Admin: 03/15/18 22:05 Dose: 40 mg Carvedilol (Coreg) 3.125 mg PO Q12 [facility] Clopidogrel Bisulfate (Plavix) 75 mg PO DAILY [facility] Last Admin: 03/16/18 08:25 Dose: 75 mg Enoxaparin Sodium (Lovenox) 40 mg SC DAILY [facility]; Protocol Last Admin: 03/16/18 08:25 Dose: 40 mg Famotidine (Pepcid) 20 mg PO HS [facility] Last Admin: 03/15/18 22:07 Dose: 20 mg HCTZ/Losartan Potassium (Hyzaar 12.5 Mg-50 Mg) 2 tab PO DAILY [facility] Last Admin: 03/16/18 08:30 Dose: 2 tab Ceftriaxone Sodium 1 gm/ (Sodium Chloride) 100 mls @ 100 mls/hr IVPB Q12 [facility]; Protocol Last Admin: 03/16/18 08:24 Dose: 100 mls/hr Ondansetron HCl (Zofran Inj) 4 mg IVP Q6 PRN PRN Reason: Nausea/Vomiting Quetiapine Fumarate (Seroquel) 25 mg PO DAILY@1800 [facility] Last Admin: 03/15/18 17:07 Dose: 25 mg Trazodone HCl (Desyrel) 12.5 mg PO HS [facility] Last Admin: 03/15/18 22:04 Dose: 12.5 mg - Labs Labs: 03/13/18 05:50 03/14/18 04:30 PT 12.0 Seconds (9.8-13.1) 03/09/18 18:10 INR 1.1 03/09/18 18:10 APTT 31.6 Seconds (25.6-37.1) 03/09/18 18:10 - Constitutional Appears: Well - Head Exam Head Exam: ATRAUMATIC, NORMAL INSPECTION, NORMOCEPHALIC - Eye Exam Eye Exam: EOMI, Normal appearance, PERRL Pupil Exam: NORMAL ACCOMODATION, PERRL - ENT Exam ENT Exam: Mucous Membranes Moist, Normal Exam - Neck Exam Neck Exam: Full ROM, Normal Inspection. absent: Lymphadenopathy - Respiratory Exam Respiratory Exam: Clear to Ausculation Bilateral, NORMAL BREATHING PATTERN - Cardiovascular Exam Cardiovascular Exam: REGULAR RHYTHM, +S1, +S2. absent: Murmur - GI/Abdominal Exam GI & Abdominal Exam: Soft, Normal Bowel Sounds. absent: Tenderness - Extremities Exam Extremities Exam: Full ROM, Normal Capillary Refill, Normal Inspection. absent: Joint Swelling, Pedal Edema - Back Exam Back Exam: NORMAL INSPECTION - Neurological Exam Neurological Exam: Alert, Awake, CN II-XII Intact, Normal Gait, Oriented x3 - Psychiatric Exam Psychiatric exam: Normal Affect, Normal Mood - Skin Skin Exam: Dry, Intact, Normal Color, Warm Assessment and Plan (1) Moderate aortic stenosis Status: Acute (2) TIA (transient ischemic attack) Status: Deleted (3) Confusion Status: Acute (4) Slurred speech Status: Acute
[2018-03-16 15:54] VITALS: BP 105/67; PULSE 86; RESP 18; TEMP 98; O2SAT 95
[2018-03-16] MEDS ORDERED: Pneumococcal 23-Valent Vaccine IM ONE (16:27)
--- NOTE | 2018-03-16 20:44 | CARD ---
APPROVED REPORT Date of service: 03/16/2018 EKG Measurement Heart [id number] <Conclusion> Sinus rhythm with 1st degree AV block with premature atrial complexes Nonspecific ST abnormality Abnormal ECG
--- NOTE | 2018-03-17 20:17 | EEG ---
DATE: 03/17/2018 REQUESTING PHYSICIAN: Dr. Alicia Cardona REASON FOR THE REQUEST: Slurred speech. MEDICATION: Not listed. TECHNIQUE: Routine electroencephalogram performed with T3 MOTION technology. Electrodes were applied according to the 10-20 International Placement System; impedances were less than 5 kilo ohms. EEG start 15:50 a.m. EEG end 16:39 a.m. TOTAL RECORDING TIME: 49 minutes. FINDINGS: During the awake state, the background activity showed an average frequency of 9 Hz in the posterior head regions, normally reactive to eye opening and eye closure; anterior head region frequencies were in the better range. Drowsiness was seen at 16:14 p.m. and characterized by diffuse bilateral attenuation with frequency dropping into the 5-6 Hz range. Sleep was not seen. Hyperventilation was not performed. Photic stimulation was performed and there were no changes in the record. The EKG rhythm strip showed normal sinus arrhythmia. IMPRESSION: This is a normal, awake, and drowsy electroencephalogram. Hemanth Womack MD
== END 2018-03-16 17:35 | DRG 57 ==
LOC: H.ER 17:29 → H.ERHOLD 18:16 → H.ICU/CCU 22:00 → H.TEL 03-13 10:59
PROVIDERS: ADMIT Student in an Organized Health Care Education/Training Program; ATTEND Student in an Organized Health Care Education/Training Program
PROC: 3E0234Z Introduction of Serum, Toxoid and Vaccine into Muscle, Percutaneous Approach (ICD-10-PCS; principal; 2018-03-16)
DX: G31.83 Neurocognitive disorder with Lewy bodies (principal); F02.81 Dementia in other diseases classified elsewhere, unspecified severity, with behavioral disturbance; N39.0 Urinary tract infection, site not specified; G93.0 Cerebral cysts; B96.89 Other specified bacterial agents as the cause of diseases classified elsewhere; R47.81 Slurred speech; R29.702 NIHSS score 2; I35.0 Nonrheumatic aortic (valve) stenosis; I73.89 Other specified peripheral vascular diseases; I10 Essential (primary) hypertension; E78.5 Hyperlipidemia, unspecified; E78.00 Pure hypercholesterolemia, unspecified; R19.7 Diarrhea, unspecified; Z23 Encounter for immunization; Z79.02 Long term (current) use of antithrombotics/antiplatelets; Z79.82 Long term (current) use of aspirin; Z86.73 Personal history of transient ischemic attack (TIA), and cerebral infarction without residual deficits; Z87.442 Personal history of urinary calculi; Z88.6 Allergy status to analgesic agent

== ENCOUNTER 2018-03-16 15:18 | Inpatient (IN) | payer OTHER, BC ==
[2018-03-16 18:29] VITALS: BMI 22.7
[2018-03-16] MEDS ORDERED: cefTRIAXone IV 1 gm in Dextros 50 ML BAG IVPB SCH (21:00)
[2018-03-17 06:35] LABS: BASO # 0.1 K/uL (0.0-0.2); BASO % 0.5 % (0.0-2.0); EOS # 0.1 K/uL (0.0-0.7); EOS % 1.3 % (0.0-4.0); HEMOGLOBIN 12.7 g/dL (12.0-16.0); LYMPH # 1.4 K/uL (1.0-4.3); LYMPH % 14.3 % (20.0-40.0); MEAN CELL VOLUME 82.2 fl (81.0-99.0); MEAN CORPUSCULAR HEMOGLOBIN 27.4 pg (27.0-31.0); MEAN CORPUSCULAR HGB CONC 33.3 g/dL (33.0-37.0); MEAN PLATELET VOLUME 8.4 fl (7.2-11.7); MONO % 10.9 % (0.0-10.0); NRBC % 0.2 % (0.0-0.0); RBC 4.66 Mil/uL (3.80-5.20); RED CELL DISTRIBUTION WIDTH 14.5 % (11.5-14.5); WHITE BLOOD COUNT 9.5 K/uL (4.8-10.8)
[2018-03-17 07:04] LABS: ALB/GLOB RATIO 1.2 (1.0-2.1); ALBUMIN 3.6 g/dL (3.5-5.0); ALT/SGPT 58 U/L (9-52); AST/SGOT 40 U/L (14-36); BLOOD UREA NITROGEN 24 mg/dl (7-17); CALCIUM 9.5 mg/dL (8.4-10.2); GFR NON-AFRICAN AMERICAN 53
[2018-03-17] MEDS ORDERED: Potassium Chloride 20 mEq ER Tab PO ONE (07:49)
[2018-03-17] MEDS: Enoxaparin 40 mg Syringe SC SCH (08:40)
[2018-03-17] MEDS ORDERED: HCTZ/Losartan 12.5/50 Tab PO SCH (09:00)
--- NOTE | 2018-03-17 10:48 | CP.PCM.HP ---
<Tobi Downing - Last Filed: 03/17/18 14:30> History of Present Illness - History of Present Illness History of Present Illness: 82 year old female with PMHx dementia, hypertension, and HLD admitted to TCU for deconditioning physical therapy and completion of IV antibiotics for UTI. Patient was admitted to [facility] on 03/09/18 for evaluation of possible stroke after patient started having slurred speech and blanking out for 10 mins. Patient was evaluated by neurologist and extensive workup was done including CT head, MRI brain, MRA, Carotid US which did not show any acute stroke. Patient disgnosed with lewy body dementia with behavioral disturbance and E coli UTI for which currently receiving Ceftriaxone 1g PO BID. Today patient is awake, alert, sitting in bed comfortably and smiling. Patient continues to get sundowning effect including agaitation and behavioral changes in the evening. Patient also has urinary incontinence and mild dysuria but denies any fever, chills, nausea, vomiting, abdominal pain, diarrhea or constipation. As per daughter who POA for patient, does not want Seroquel and Trazodone. She requested to give medication only if patient gets agitated. Present on Admission - Present on Admission Any Indicators Present on Admission: No History of DVT/PE: No History of Uncontrolled Diabetes: No Urinary Catheter: No Decubitus Ulcer Present: No Review of Systems - Review of Systems Systems not reviewed;Unavailable: Dementia, Psychotic - Constitutional Constitutional: absent: Anorexia, Chills, Excessive Sweating, Fever - EENT Eyes: absent: Change in Vision - Cardiovascular Cardiovascular: absent: Chest Pain, Dyspnea - Respiratory Respiratory: absent: Cough - Gastrointestinal Gastrointestinal: absent: Abdominal Pain, Constipation, Diarrhea - Genitourinary Genitourinary: Urinary Incontinence, Urinary Frequency - Musculoskeletal Musculoskeletal: Abnormal Gait - Psychiatric Psychiatric: Behavioral Changes Past Patient History - Past Medical History & Family History Past Medical History?: Yes - Past Social History Smoking Status: Former Smoker - CARDIAC Hx Hypercholesterolemia: Yes Hx Hypertension: Yes - PULMONARY Hx Respiratory Disorders: No - NEUROLOGICAL Hx Neurological Disorder: Yes Hx Dementia: Yes - HEENT Hx HEENT Problems: No - RENAL Hx Kidney Stones: Yes - ENDOCRINE/METABOLIC Hx Endocrine Disorders: No - HEMATOLOGICAL/ONCOLOGICAL Hx Blood Disorders: No - INTEGUMENTARY Hx Dermatological Problems: No - MUSCULOSKELETAL/RHEUMATOLOGICAL Hx Musculoskeletal Disorders: Yes Hx Falls: No Hx Unsteady Gait: Yes - GASTROINTESTINAL Hx Gastrointestinal Disorders: No - GENITOURINARY/GYNECOLOGICAL Hx Genitourinary Disorders: No - PSYCHIATRIC Hx Substance Use: No Other/Comment: dementia - SURGICAL HISTORY Hx Cholecystectomy: Yes - ANESTHESIA Hx Anesthesia: Yes Hx Anesthesia Reactions: No Meds Allergies/Adverse Reactions: Allergies Allergy/AdvReac Type Severity Reaction Status Date / Time codeine Allergy DIZZINESS Verified 03/16/18 18:28 Physical Exam - Constitutional Appears: No Acute Distress - Head Exam Head Exam: ATRAUMATIC, NORMOCEPHALIC - Eye Exam Eye Exam: EOMI, Normal appearance - ENT Exam ENT Exam: Mucous Membranes Moist - Neck Exam Neck exam: Negative for: Tenderness - Respiratory Exam Respiratory Exam: Decreased Breath Sounds, NORMAL BREATHING PATTERN. absent: Rales, Rhonchi, Wheezes, Respiratory Distress - Cardiovascular Exam Cardiovascular Exam: +S1, +S2. absent: Systolic Murmur - GI/Abdominal Exam GI & Abdominal Exam: Normal Bowel Sounds, Soft. absent: Distended, Tenderness - Extremities Exam Extremities exam: Negative for: calf tenderness, pedal edema, tenderness - Neurological Exam Neurological exam: Alert, Oriented x3 - Psychiatric Exam Psychiatric exam: Normal Affect, Normal Mood - Skin Skin Exam: Dry, Intact, Normal Color Results - Vital Signs Recent Vital Signs: Last Vital Signs Temp 98.2 F 03/17/18 08:28 Pulse 72 03/17/18 08:40 Resp 20 03/17/18 08:28 BP 128/70 03/17/18 08:40 Pulse Ox 98 03/17/18 08:28 - Labs Result Diagrams: 03/17/18 05:30 03/17/18 05:30 Labs: Laboratory Results - last 24 hr 03/17/18 03/17/18 05:30 05:30 WBC 9.5 RBC 4.66 Hgb 12.7 Hct 38.3 MCV 82.2 MCH 27.4 MCHC 33.3 RDW 14.5 Plt Count 280 MPV 8.4 Neut % (Auto) 73.0 Lymph % (Auto) 14.3 L Dodge % (Auto) 10.9 H Eos % (Auto) 1.3 Baso % (Auto) 0.5 Neut # (Auto) 7.0 Lymph # (Auto) 1.4 Dodge # (Auto) 1.0 H Eos # (Auto) 0.1 Baso # (Auto) 0.1 Sodium 141 Potassium 3.5 L Chloride 103 Carbon Dioxide 27 Anion Gap 15 BUN 24 H Creatinine 1.0 Est GFR ( Amer) > 60 Est GFR (Non-Af Amer) 53 Random Glucose 101 Calcium 9.5 Total Bilirubin 0.5 AST 40 H D ALT 58 H D Alkaline Phosphatase 72 Total Protein 6.6 Albumin 3.6 Globulin 3.0 Albumin/Globulin Ratio 1.2 Vitamin B12 473 Assessment & Plan - Assessment and Plan (Free Text) Assessment: 82 year old female with PMHx dementia, hypertension, and HLD admitted to TCU physical therapy and completion of IV antibiotics for UTI. Plan: Lewy Body Dementia with behavior disturbance -Chronic, continues to have sundowning effect -No Trazodone or Seroquel as per daughter(POA) -B12 and FA WNL UTI - E. coli sensitive to cephalosporins - Continue Ceftriaxone 1 gm PO BID - ID on board: will follow recommendations. Hypertension -Controlled -Continue Coreg 3.125 mg BID -Continue HCTZ/Losartan 12.5/50mg -As per Cardio, continue ASA, Plavix. Hypelipedemia - Continue Atorvastatin 40 mg PO daily Hypokelemia - K+ 3.5 - Received KDur 20 mg PO once - Monitor bmp Deconditioning -Continue PT DVT prophylaxis -Lovenox 40 mg SC daily Code Status -Full code <Eliana Cole - Last Filed: 03/17/18 15:42> Results - Vital Signs Recent Vital Signs: Last Vital Signs Temp 98.2 F 03/17/18 08:28 Pulse 72 03/17/18 10:10 Resp 20 03/17/18 08:28 BP 128/70 03/17/18 10:10 Pulse Ox 98 03/17/18 10:10 - Labs Result Diagrams: 03/17/18 05:30 03/17/18 05:30 Labs: Laboratory Results - last 24 hr 03/17/18 03/17/18 05:30 05:30 WBC 9.5 RBC 4.66 Hgb 12.7 Hct 38.3 MCV 82.2 MCH 27.4 MCHC 33.3 RDW 14.5 Plt Count 280 MPV 8.4 Neut % (Auto) 73.0 Lymph % (Auto) 14.3 L Dodge % (Auto) 10.9 H Eos % (Auto) 1.3 Baso % (Auto) 0.5 Neut # (Auto) 7.0 Lymph # (Auto) 1.4 Dodge # (Auto) 1.0 H Eos # (Auto) 0.1 Baso # (Auto) 0.1 Sodium 141 Potassium 3.5 L Chloride 103 Carbon Dioxide 27 Anion Gap 15 BUN 24 H Creatinine 1.0 Est GFR ( Amer) > 60 Est GFR (Non-Af Amer) 53 Random Glucose 101 Calcium 9.5 Total Bilirubin 0.5 AST 40 H D ALT 58 H D Alkaline Phosphatase 72 Total Protein 6.6 Albumin 3.6 Globulin 3.0 Albumin/Globulin Ratio 1.2 Vitamin B12 473 Folate 11.9 Attending/Attestation - Attestation I have personally seen and examined this patient.: Yes I have fully participated in the care of the patient.: Yes I have reviewed all pertinent clinical information: Yes
[2018-03-17 13:02] LABS: FOLATE 11.9 ng/mL
--- NOTE | 2018-03-18 08:13 | CP.PCM.CON ---
History of Present Illness - History of Present Illness History of Present Illness: Pt is an 82 year old female admitted to [facility] and referred to the music writer for evaluation. Pt able to provide age and date of correctly. Pt spoke of living with her mother and father in [place]. She reported having 3 children (son and twin daughters). Note, history provided unreliable due to patient's cognitive/memory deficits. 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 She denied a history of alc.sub abuse. Pt reported seeing a pscyhiatrist a number of years ago though "not liking him." She acknowledged current anxiety likely related to her cognitive deficits, and poor organization. MSE: Pt alert, oriented to month, not date/year, able to state day as well. Significant cognitive deficits evident, possible visual experiences evident (with aid seen in the room), no si no hi ideation. DX: Dementia r/o with behavioral issues in the evening. Plan: Consider psychiatric evaluation to address these issues Thank you for this referral, Dr. Nicole Past Patient History - Past Medical History & Family History Past Medical History?: Yes - Past Social History Smoking Status: Former Smoker - CARDIAC Hx Hypercholesterolemia: Yes Hx Hypertension: Yes - PULMONARY Hx Respiratory Disorders: No - NEUROLOGICAL Hx Neurological Disorder: Yes Hx Dementia: Yes - HEENT Hx HEENT Problems: No - RENAL Hx Kidney Stones: Yes - ENDOCRINE/METABOLIC Hx Endocrine Disorders: No - HEMATOLOGICAL/ONCOLOGICAL Hx Blood Disorders: No - INTEGUMENTARY Hx Dermatological Problems: No - MUSCULOSKELETAL/RHEUMATOLOGICAL Hx Musculoskeletal Disorders: Yes Hx Falls: No Hx Unsteady Gait: Yes - GASTROINTESTINAL Hx Gastrointestinal Disorders: No - GENITOURINARY/GYNECOLOGICAL Hx Genitourinary Disorders: No - PSYCHIATRIC Hx Substance Use: No Other/Comment: dementia - SURGICAL HISTORY Hx Cholecystectomy: Yes - ANESTHESIA Hx Anesthesia: Yes Hx Anesthesia Reactions: No Meds Allergies/Adverse Reactions: Allergies Allergy/AdvReac Type Severity Reaction Status Date / Time codeine Allergy DIZZINESS Verified 03/16/18 18:28 - Medications Medications: Current Medications Aspirin (Ecotrin) 81 mg PO DAILY [facility] Last Admin: 03/17/18 08:39 Dose: 81 mg Atorvastatin Calcium (Lipitor) 40 mg PO HS [facility] Last Admin: 03/17/18 21:04 Dose: 40 mg Carvedilol (Coreg) 3.125 mg PO Q12 [facility] Last Admin: 03/17/18 20:56 Dose: 3.125 mg Clopidogrel Bisulfate (Plavix) 75 mg PO DAILY [facility] Last Admin: 03/17/18 08:40 Dose: 75 mg Enoxaparin Sodium (Lovenox) 40 mg SC DAILY [facility]; Protocol Last Admin: 03/17/18 08:40 Dose: 40 mg Famotidine (Pepcid) 20 mg PO HS [facility] Last Admin: 03/17/18 21:04 Dose: 20 mg Hydrochlorothiazide (Microzide) 12.5 mg PO DAILY [facility] Last Admin: 03/17/18 08:41 Dose: 12.5 mg Ceftriaxone Sodium 1 gm/ (Sodium Chloride) 100 mls @ 100 mls/hr IVPB Q12H [facility] Last Admin: 03/17/18 19:43 Dose: 100 mls/hr Losartan Potassium (Cozaar) 50 mg PO DAILY [facility] Last Admin: 03/17/18 08:40 Dose: 50 mg Trazodone HCl (Desyrel) 25 mg PO HS PRN PRN Reason: Sleep Last Admin: 03/17/18 20:58 Dose: 25 mg Results - Vital Signs Recent Vital Signs: Last Vital Signs Temp 98.3 F 03/17/18 19:41 Pulse 88 03/17/18 20:56 Resp 20 03/17/18 19:41 BP 160/68 H 03/17/18 20:56 Pulse Ox 97 03/17/18 19:41 - Labs Result Diagrams: 03/17/18 05:30 03/17/18 05:30 Labs: Laboratory Results - last 24 hr 03/17/18 05:30 Folate 11.9
[2018-03-18] MEDS: Enoxaparin 40 mg Syringe SC SCH (10:06)
[2018-03-19] MEDS: Enoxaparin 40 mg Syringe SC SCH (08:44)
[2018-03-20] MEDS: Enoxaparin 40 mg Syringe SC SCH (08:31)
[2018-03-20 16:28] LABS: SQUAMOUS EPITHIAL 18 /hpf (0-5); URINE BACTERIA RARE (<OCC); URINE BILIRUBIN NEGATIVE (NEGATIVE); URINE BLOOD NEGATIVE (NEGATIVE); URINE CLARITY CLOUDY (Clear); URINE COLOR YELLOW (YELLOW); URINE GLUCOSE (UA) NEG (NEGATIVE); URINE HYALINE CAST 0-2 /hpf (0-2); URINE LEUKOCYTE ESTERASE SMALL Leu/uL (Negative); URINE PROTEIN NEGATIVE (NEGATIVE); URINE UROBILINOGEN 0.2-1.0 mg/dL (0.2-1.0)
[2018-03-20 19:04] LABS: CALCIUM 8.6 mg/dL (8.4-10.2)
[2018-03-21] MEDS: Enoxaparin 40 mg Syringe SC SCH (09:35)
[2018-03-22] MEDS: Enoxaparin 40 mg Syringe SC SCH (08:01)
--- NOTE | 2018-03-22 14:53 | CP.PCM.PN ---
Subjective - Date & Time of Evaluation Date of Evaluation: 03/22/18 Time of Evaluation: 10:00 - Subjective Subjective: Patient seen and examined. Denied any complaint. Objective - Vital Signs/Intake and Output Vital Signs (last 24 hours): Temp Pulse Resp BP Pulse Ox 97.6 F 69 20 125/80 98 03/22/18 07:38 03/22/18 08:03 03/22/18 07:38 03/22/18 08:03 03/22/18 07:38 - Medications Medications: Current Medications Alprazolam (Xanax) 0.5 mg PO HS PRN PRN Reason: Agitation Last Admin: 03/21/18 20:59 Dose: 0.5 mg Aspirin (Ecotrin) 81 mg PO DAILY [facility] Last Admin: 03/22/18 08:03 Dose: 81 mg Atorvastatin Calcium (Lipitor) 40 mg PO HS [facility] Last Admin: 03/21/18 20:59 Dose: 40 mg Carvedilol (Coreg) 3.125 mg PO Q12 [facility] Last Admin: 03/22/18 08:02 Dose: 3.125 mg Clopidogrel Bisulfate (Plavix) 75 mg PO DAILY [facility] Last Admin: 03/22/18 08:03 Dose: 75 mg Enoxaparin Sodium (Lovenox) 40 mg SC DAILY [facility]; Protocol Famotidine (Pepcid) 20 mg PO HS [facility] Last Admin: 03/21/18 20:59 Dose: 20 mg Hydrochlorothiazide (Microzide) 12.5 mg PO DAILY [facility] Last Admin: 03/22/18 08:03 Dose: 12.5 mg Losartan Potassium (Cozaar) 50 mg PO DAILY [facility] Last Admin: 03/22/18 08:03 Dose: 50 mg - Labs Labs: 03/17/18 05:30 03/20/18 18:40 - Constitutional Appears: No Acute Distress - Head Exam Head Exam: ATRAUMATIC - Eye Exam Eye Exam: absent: Scleral icterus - ENT Exam ENT Exam: Mucous Membranes Moist - Neck Exam Neck Exam: absent: Meningismus - Respiratory Exam Respiratory Exam: absent: Rales, Rhonchi, Wheezes, Respiratory Distress - Cardiovascular Exam Cardiovascular Exam: REGULAR RHYTHM, +S1, +S2 - GI/Abdominal Exam GI & Abdominal Exam: Soft. absent: Tenderness - Rectal Exam Rectal Exam: Deferred - Back Exam Back Exam: NORMAL INSPECTION - Neurological Exam Neurological Exam: Alert - Psychiatric Exam Psychiatric exam: Flat Affect - Skin Skin Exam: Dry, Intact Assessment and Plan - Assessment and Plan (Free Text) Assessment: 82 yo female with history of Lewy body dementia and HTN was seen in the ER because of slurred speech, tingling sensation of the right arm and a 10 minute period of blanking out. Patient was admitted on 03/09/[address] for [address] stroke but CT scan and MRI were both negative for acute CVA. Patient continue to have b ehavioural disturbance and was found to have UTI secondary to E coli. She was transferred to TCU for therapy and continuation of IV antibiotics. 1. Lewy Body Dementia with behavior disturbance on and off effect daughter refused for patient to received Trazodone or Seroquel psyche consult 2. UTI last day of antibiotics was given yesterday patient was put on Ceftriaxone 1 gm IV BID ID on board: will follow recommendations repeat urinalysis 3. Hypertension BP controlled Continue Coreg, HCTZ/Losartan 4. Hypelipedemia Continue Atorvastatin 5. Deconditioning Continue PT 6. DVT prophylaxis Lovenox
[2018-03-22 17:00] LABS: SQUAMOUS EPITHIAL 6 /hpf (0-5); URINE BACTERIA RARE (<OCC); URINE BILIRUBIN NEGATIVE (NEGATIVE); URINE BLOOD SMALL (NEGATIVE); URINE CLARITY SLIGHTY-CLOUDY (Clear); URINE COLOR YELLOW (YELLOW); URINE GLUCOSE (UA) NEG (NEGATIVE); URINE LEUKOCYTE ESTERASE SMALL Leu/uL (Negative); URINE PROTEIN NEGATIVE (NEGATIVE); URINE UROBILINOGEN 0.2-1.0 mg/dL (0.2-1.0)
[2018-03-23] MEDS: Enoxaparin 40 mg Syringe SC SCH (08:10)
--- NOTE | 2018-03-24 06:52 | CP.PCM.CON ---
History of Present Illness - History of Present Illness History of Present Illness: Podiatry consult note for Dr. Ramirez 82F with pmhx of dementia, hypertension, and HLD seen and evaluated at bedside in TCU. Patient is known to Dr. Ramirez and presents to his clinic every 9 weeks for footcare and nail treatment. Family requested for her to be seen by podiatry while in house as she is due for an appointment with Dr. Ramirez but will miss it as she is in acute rehab. Patient states her toenails are mildly painful and elongated. States they snag on her socks and she has noticed them raising off of her skin. Denies N/V/F/C/SOB/CP and has no other acute complaints. PMHx: dementia, hypertension, and HLD PSHx: denies All: codeine Past Patient History - Past Medical History & Family History Past Medical History?: Yes - Past Social History Smoking Status: Former Smoker - CARDIAC Hx Hypercholesterolemia: Yes Hx Hypertension: Yes - PULMONARY Hx Respiratory Disorders: No - NEUROLOGICAL Hx Neurological Disorder: Yes Hx Dementia: Yes - HEENT Hx HEENT Problems: No - RENAL Hx Kidney Stones: Yes - ENDOCRINE/METABOLIC Hx Endocrine Disorders: No - HEMATOLOGICAL/ONCOLOGICAL Hx Blood Disorders: No - INTEGUMENTARY Hx Dermatological Problems: No - MUSCULOSKELETAL/RHEUMATOLOGICAL Hx Musculoskeletal Disorders: Yes Hx Falls: No Hx Unsteady Gait: Yes - GASTROINTESTINAL Hx Gastrointestinal Disorders: No - GENITOURINARY/GYNECOLOGICAL Hx Genitourinary Disorders: No - PSYCHIATRIC Hx Substance Use: No Other/Comment: dementia - SURGICAL HISTORY Hx Cholecystectomy: Yes - ANESTHESIA Hx Anesthesia: Yes Hx Anesthesia Reactions: No Meds Allergies/Adverse Reactions: Allergies Allergy/AdvReac Type Severity Reaction Status Date / Time codeine Allergy DIZZINESS Verified 03/16/18 18:28 - Medications Medications: Current Medications Alprazolam (Xanax) 0.5 mg PO HS PRN PRN Reason: Agitation Last Admin: 03/23/18 21:11 Dose: 0.5 mg Aspirin (Ecotrin) 81 mg PO DAILY [facility] Last Admin: 03/23/18 08:11 Dose: 81 mg Atorvastatin Calcium (Lipitor) 40 mg PO HS [facility] Last Admin: 03/23/18 21:16 Dose: 40 mg Carvedilol (Coreg) 3.125 mg PO Q12 [facility] Last Admin: 03/23/18 21:14 Dose: 3.125 mg Clopidogrel Bisulfate (Plavix) 75 mg PO DAILY [facility] Last Admin: 03/23/18 08:11 Dose: 75 mg Enoxaparin Sodium (Lovenox) 40 mg SC DAILY [facility]; Protocol Last Admin: 03/23/18 08:10 Dose: 40 mg Famotidine (Pepcid) 20 mg PO HS [facility] Last Admin: 03/23/18 21:16 Dose: 20 mg Hydrochlorothiazide (Microzide) 12.5 mg PO DAILY [facility] Last Admin: 03/23/18 08:11 Dose: 12.5 mg Losartan Potassium (Cozaar) 50 mg PO DAILY [facility] Last Admin: 03/23/18 08:12 Dose: Not Given Physical Exam - Constitutional Appears: Well, Non-toxic, No Acute Distress - Head Exam Head Exam: ATRAUMATIC, NORMOCEPHALIC - Extremities Exam Additional comments: Vasc: DP and PT pulses palpable; temp gradient warm to cool from proximal to di stal; cap refill <3 seconds to all digits; no edema noted to LE b/l Derm: skin temp and turgor within normal limits; nails x 10 are elongated and dystrophic; no cellulitis present or discoloration of LE; no open wounds or lesions present Ortho: mild pain on palpation of nail beds; no other gross pathology noted Neuro: gross and protective sensation intact b/l - Neurological Exam Neurological exam: Alert, Oriented x3 - Psychiatric Exam Psychiatric exam: Normal Affect, Normal Mood Results - Vital Signs Recent Vital Signs: Last Vital Signs Temp 97.6 F 03/23/18 20:00 Pulse 85 03/23/18 21:14 Resp 20 03/23/18 20:00 BP 128/81 03/23/18 21:14 Pulse Ox 97 03/23/18 20:00 - Labs Result Diagrams: 03/17/18 05:30 03/20/18 18:40 Assessment & Plan - Assessment and Plan (Free Text) Assessment: 82F with pmhx of dementia, hypertension, and HLD seen and evaluated in TCU with elongated dystrophic nails x10 Plan: Patient seen and evaluated Discussed in detail with Dr. Ramirez Chart and labs reviewed Patients nails sharply cut with a nail nipper x 10 without incident Patient tolerated Lotion applied to feet b/l Podiatry to sign off on patient Thank you for the consult - Date & Time Date: 03/20/18 Time: 11:00
[2018-03-24] MEDS: Enoxaparin 40 mg Syringe SC SCH (08:04)
--- NOTE | 2018-03-24 14:10 | CP.PCM.PN ---
Subjective - Date & Time of Evaluation Date of Evaluation: 03/24/18 Time of Evaluation: 10:30 - Subjective Subjective: Patient seen and examined. Denied any complaint Objective - Vital Signs/Intake and Output Vital Signs (last 24 hours): Temp Pulse Resp BP Pulse Ox 97.6 F 76 20 130/82 100 03/24/18 08:05 03/24/18 08:05 03/24/18 08:05 03/24/18 08:05 03/24/18 08:05 - Medications Medications: Current Medications Alprazolam (Xanax) 0.5 mg PO HS PRN PRN Reason: Agitation Last Admin: 03/23/18 21:11 Dose: 0.5 mg Aspirin (Ecotrin) 81 mg PO DAILY [facility] Last Admin: 03/24/18 08:03 Dose: 81 mg Atorvastatin Calcium (Lipitor) 40 mg PO HS [facility] Last Admin: 03/23/18 21:16 Dose: 40 mg Carvedilol (Coreg) 3.125 mg PO Q12 [facility] Last Admin: 03/24/18 08:03 Dose: 3.125 mg Clopidogrel Bisulfate (Plavix) 75 mg PO DAILY [facility] Last Admin: 03/24/18 08:04 Dose: 75 mg Enoxaparin Sodium (Lovenox) 40 mg SC DAILY [facility]; Protocol Last Admin: 03/24/18 08:04 Dose: 40 mg Famotidine (Pepcid) 20 mg PO HS [facility] Last Admin: 03/23/18 21:16 Dose: 20 mg Hydrochlorothiazide (Microzide) 12.5 mg PO DAILY [facility] Last Admin: 03/24/18 08:03 Dose: 12.5 mg Losartan Potassium (Cozaar) 50 mg PO DAILY [facility] Last Admin: 03/24/18 08:04 Dose: 50 mg - Labs Labs: 03/17/18 05:30 03/20/18 18:40 - Constitutional Appears: No Acute Distress - Head Exam Head Exam: ATRAUMATIC - Eye Exam Eye Exam: absent: Scleral icterus - ENT Exam ENT Exam: Mucous Membranes Moist - Neck Exam Neck Exam: absent: Meningismus - Respiratory Exam Respiratory Exam: absent: Rales, Rhonchi, Wheezes, Respiratory Distress - Cardiovascular Exam Cardiovascular Exam: REGULAR RHYTHM, +S1, +S2 - GI/Abdominal Exam GI & Abdominal Exam: Soft. absent: Tenderness - Rectal Exam Rectal Exam: Deferred - Back Exam Back Exam: NORMAL INSPECTION - Neurological Exam Neurological Exam: Alert - Psychiatric Exam Psychiatric exam: Flat Affect - Skin Skin Exam: Dry, Intact Assessment and Plan - Assessment and Plan (Free Text) Assessment: 82 yo female with history of Lewy body dementia and HTN was seen in the ER because of slurred speech, tingling sensation of the right arm and a 10 minute period of blanking out. Patient was admitted on 03/09/18 for possible stroke but CT scan and MRI were both negative for acute CVA. Patient continue to have behavioural disturbance and was found to have UTI secondary to E coli. She was transferred to TCU for therapy and continuation of IV antibiotics. 1. Lewy Body Dementia with behavior disturbance on and off effect recently more stable one to one DC daughter refused Trazodone or Seroquel to be given to her mother 2. UTI lreceived Ceftriaxone 1gm IV q 12hrs for 3 days repeat urinalysis still + for leukocyte esterase repeatt urinalysis and urine culture 3. Hypertension BP controlled Continue Coreg, HCTZ/Losartan 4. Hypelipedemia Continue Atorvastatin 5. Deconditioning Continue PT 6. DVT prophylaxis on Lovenox
[2018-03-24 22:52] LABS: SQUAMOUS EPITHIAL 20 /hpf (0-5); URINE BACTERIA RARE (<OCC); URINE BILIRUBIN NEGATIVE (NEGATIVE); URINE BLOOD SMALL (NEGATIVE); URINE CLARITY CLOUDY (Clear); URINE COLOR YELLOW (YELLOW); URINE GLUCOSE (UA) NEG (NEGATIVE); URINE LEUKOCYTE ESTERASE LARGE Leu/uL (Negative); URINE PROTEIN NEGATIVE (NEGATIVE); URINE UROBILINOGEN 0.2-1.0 mg/dL (0.2-1.0)
[2018-03-25] MEDS: Enoxaparin 40 mg Syringe SC SCH (09:21)
[2018-03-26] MEDS: Enoxaparin 40 mg Syringe SC SCH (08:31)
[2018-03-27] MEDS: Enoxaparin 40 mg Syringe SC SCH (08:35)
--- NOTE | 2018-03-27 14:07 | CP.PCM.CON ---
<Stephy Alcantar - Last Filed: 03/27/18 14:24> History of Present Illness - History of Present Illness History of Present Illness: OBGYN Consult 82-year-old female on day 10 of admission admitted for UTI seen bedside in TCU. OBGYN consult requested to evaluate pessary. As per patient's daughter, pessary was placed 10-11 years ago and is routinely removed and cleaned every [address] Arias of [place]. Her last appointment was 8 weeks ago. Stretcher with stirrups was transported from [facility] to TCU in order for procedure to be done appropriately. She denies any abdominal pain, foul smelling discharge or new issues with pessary. No further OBGYN complaints at this time. Past Patient History - Past Medical History & Family History Past Medical History?: Yes - Past Social History Smoking Status: Former Smoker - CARDIAC Hx Hypercholesterolemia: Yes Hx Hypertension: Yes - PULMONARY Hx Respiratory Disorders: No - NEUROLOGICAL Hx Neurological Disorder: Yes Hx Dementia: Yes - HEENT Hx HEENT Problems: No - RENAL Hx Kidney Stones: Yes - ENDOCRINE/METABOLIC Hx Endocrine Disorders: No - HEMATOLOGICAL/ONCOLOGICAL Hx Blood Disorders: No - INTEGUMENTARY Hx Dermatological Problems: No - MUSCULOSKELETAL/RHEUMATOLOGICAL Hx Musculoskeletal Disorders: Yes Hx Falls: No Hx Unsteady Gait: Yes - GASTROINTESTINAL Hx Gastrointestinal Disorders: No - GENITOURINARY/GYNECOLOGICAL Hx Genitourinary Disorders: No - PSYCHIATRIC Hx Substance Use: No Other/Comment: dementia - SURGICAL HISTORY Hx Cholecystectomy: Yes - ANESTHESIA Hx Anesthesia: Yes Hx Anesthesia Reactions: No Meds Allergies/Adverse Reactions: Allergies Allergy/AdvReac Type Severity Reaction Status Date / Time codeine Allergy DIZZINESS Verified 03/16/18 18:28 - Medications Medications: Current Medications Alprazolam (Xanax) 0.5 mg PO HS PRN PRN Reason: Agitation Last Admin: 03/25/18 19:57 Dose: 0.5 mg Aspirin (Ecotrin) 81 mg PO DAILY [facility] Last Admin: 03/27/18 08:35 Dose: 81 mg Atorvastatin Calcium (Lipitor) 40 mg PO HS [facility] Last Admin: 03/26/18 21:14 Dose: 40 mg Carvedilol (Coreg) 3.125 mg PO Q12 [facility] Last Admin: 03/27/18 08:34 Dose: 3.125 mg Clopidogrel Bisulfate (Plavix) 75 mg PO DAILY [facility] Last Admin: 03/27/18 08:35 Dose: 75 mg Enoxaparin Sodium (Lovenox) 40 mg SC DAILY [facility]; Protocol Last Admin: 03/27/18 08:35 Dose: 40 mg Famotidine (Pepcid) 20 mg PO HS [facility] Last Admin: 03/26/18 21:14 Dose: 20 mg Hydrochlorothiazide (Microzide) 12.5 mg PO DAILY [facility] Last Admin: 03/27/18 08:35 Dose: 12.5 mg Losartan Potassium (Cozaar) 50 mg PO DAILY [facility] Last Admin: 03/27/18 08:34 Dose: 50 mg Physical Exam - Constitutional Appears: Well, Non-toxic, No Acute Distress - Head Exam Head Exam: NORMAL INSPECTION - Eye Exam Eye Exam: Normal appearance - ENT Exam ENT Exam: Mucous Membranes Moist - Respiratory Exam Respiratory Exam: NORMAL BREATHING PATTERN - GI/Abdominal Exam Additional comments: Multiple echymosis noted b/l lower quadrants - Exam External exam: NORMAL EXTERNAL EXAM Additional comments: gellhorn pessary in place, no foul or bloody discharge - Neurological Exam Neurological exam: Alert Additional comments: ambulates with assistance - Psychiatric Exam Psychiatric exam: Normal Affect, Normal Mood - Skin Skin Exam: Normal Color Results - Vital Signs Recent Vital Signs: Last Vital Signs Temp 97.9 F 03/27/18 07:37 Pulse 67 03/27/18 08:34 Resp 20 03/27/18 07:37 BP 133/82 03/27/18 08:34 Pulse Ox 100 03/27/18 07:37 - Labs Result Diagrams: 03/17/18 05:30 03/20/18 18:40 Assessment & Plan - Assessment and Plan (Free Text) Assessment: 82-year-old woman due for routine pessary maintenance. Plan: Gellhorn Pessary Maintenance -Pessary removed and cleaned with betadine. Replaced after sterilizing vagina with betadine. -Procedure done bedside, sterility maintained as best as possible, patient tolerated procedure well. <Trenton Cassidy - Last Filed: 03/27/18 17:27> Meds - Medications Medications: Current Medications Alprazolam (Xanax) 0.5 mg PO HS PRN PRN Reason: Agitation Last Admin: 03/25/18 19:57 Dose: 0.5 mg Aspirin (Ecotrin) 81 mg PO DAILY [facility] Last Admin: 03/27/18 08:35 Dose: 81 mg Atorvastatin Calcium (Lipitor) 40 mg PO HS [facility] Last Admin: 03/26/18 21:14 Dose: 40 mg Carvedilol (Coreg) 3.125 mg PO Q12 [facility] Last Admin: 03/27/18 08:34 Dose: 3.125 mg Clopidogrel Bisulfate (Plavix) 75 mg PO DAILY [facility] Last Admin: 03/27/18 08:35 Dose: 75 mg Enoxaparin Sodium (Lovenox) 40 mg SC DAILY [facility]; Protocol Last Admin: 03/27/18 08:35 Dose: 40 mg Famotidine (Pepcid) 20 mg PO HS [facility] Last Admin: 03/26/18 21:14 Dose: 20 mg Hydrochlorothiazide (Microzide) 12.5 mg PO DAILY [facility] Last Admin: 03/27/18 08:35 Dose: 12.5 mg Losartan Potassium (Cozaar) 50 mg PO DAILY [facility] Last Admin: 03/27/18 08:34 Dose: 50 mg Results - Vital Signs Recent Vital Signs: Last Vital Signs Temp 98.4 F 03/27/18 15:21 Pulse 77 03/27/18 15:21 Resp 20 03/27/18 15:21 BP 118/61 03/27/18 15:21 Pulse Ox 98 03/27/18 15:21 - Labs Result Diagrams: 03/17/18 05:30 03/20/18 18:40 Attending/Attestation - Attestation I have personally seen and examined this patient.: Yes I have fully participated in the care of the patient.: Yes I have reviewed all pertinent clinical information: Yes Notes (Text): 03/27/18 17:25 The patient was seen and examined, perssary toileting and replacement performed by myself in the presence of the resident. I agree with the above assessment.
[2018-03-28] MEDS: Enoxaparin 40 mg Syringe SC SCH (08:29)
[2018-03-28 11:17] LABS: SQUAMOUS EPITHIAL 11 /hpf (0-5); URINE BACTERIA RARE (<OCC); URINE BILIRUBIN NEGATIVE (NEGATIVE); URINE BLOOD SMALL (NEGATIVE); URINE CLARITY CLOUDY (Clear); URINE COLOR YELLOW (YELLOW); URINE GLUCOSE (UA) NEG (NEGATIVE); URINE LEUKOCYTE ESTERASE MOD Leu/uL (Negative); URINE PROTEIN NEGATIVE (NEGATIVE); URINE UROBILINOGEN 0.2-1.0 mg/dL (0.2-1.0)
[2018-03-29] MEDS: Enoxaparin 40 mg Syringe SC SCH (08:43)
--- NOTE | 2018-03-29 13:56 | CP.PCM.PN ---
Subjective - Date & Time of Evaluation Date of Evaluation: 03/29/18 Time of Evaluation: 12:30 - Subjective Subjective: Patient seen in TCU. Celebrating her birthday with friends and family . In very good spirits and wants to go home. Denies any pain or discomfort Participating with PT. Objective - Vital Signs/Intake and Output Vital Signs (last 24 hours): Temp Pulse Resp BP Pulse Ox 97.6 F 72 20 117/80 98 03/29/18 08:16 03/29/18 08:43 03/29/18 08:16 03/29/18 08:43 03/29/18 08:16 - Medications Medications: Current Medications Alprazolam (Xanax) 0.5 mg PO HS PRN PRN Reason: Agitation Last Admin: 03/28/18 19:52 Dose: 0.5 mg Aspirin (Ecotrin) 81 mg PO DAILY [facility] Last Admin: 03/29/18 08:42 Dose: 81 mg Atorvastatin Calcium (Lipitor) 40 mg PO HS [facility] Last Admin: 03/28/18 22:11 Dose: 40 mg Carvedilol (Coreg) 3.125 mg PO Q12 [facility] Last Admin: 03/29/18 08:41 Dose: 3.125 mg Clopidogrel Bisulfate (Plavix) 75 mg PO DAILY [facility] Last Admin: 03/29/18 08:44 Dose: 75 mg Enoxaparin Sodium (Lovenox) 40 mg SC DAILY [facility]; Protocol Last Admin: 03/29/18 08:43 Dose: 40 mg Famotidine (Pepcid) 20 mg PO HS [facility] Last Admin: 03/28/18 22:12 Dose: 20 mg Hydrochlorothiazide (Microzide) 12.5 mg PO DAILY [facility] Last Admin: 03/29/18 08:41 Dose: 12.5 mg Losartan Potassium (Cozaar) 50 mg PO DAILY [facility] Last Admin: 03/29/18 08:43 Dose: 50 mg - Labs Labs: 03/17/18 05:30 03/20/18 18:40 - Constitutional Appears: Non-toxic, No Acute Distress - Head Exam Head Exam: ATRAUMATIC, NORMOCEPHALIC - Eye Exam Eye Exam: EOMI, PERRL Pupil Exam: NORMAL ACCOMODATION - ENT Exam ENT Exam: Mucous Membranes Moist, Normal Exam - Neck Exam Neck Exam: Full ROM, Normal Inspection - Respiratory Exam Respiratory Exam: Clear to Ausculation Bilateral, NORMAL BREATHING PATTERN. absent: Respiratory Distress - Cardiovascular Exam Cardiovascular Exam: REGULAR RHYTHM, RRR, +S1, +S2. absent: JVD - GI/Abdominal Exam GI & Abdominal Exam: Soft, Normal Bowel Sounds. absent: Distended, Guarding, Tenderness, Rebound - Rectal Exam Rectal Exam: Deferred - Extremities Exam Extremities Exam: Full ROM, Normal Capillary Refill, Normal Inspection. absent: Pedal Edema - Back Exam Back Exam: NORMAL INSPECTION - Neurological Exam Neurological Exam: Alert, Awake - Psychiatric Exam Psychiatric exam: Normal Affect - Skin Skin Exam: Dry, Warm Assessment and Plan - Assessment and Plan (Free Text) Assessment: 82 yo female with history of Lewy body dementia and HTN was seen in the ER because of slurred speech, tingling sensation of the right arm and a 10 minute period of blacking out. Patient was admitted on 03/09/18 for possible stroke but CT scan and MRI were both negative for acute CVA. Patient continued to have behavioral disturbance and was found to have UTI secondary to E coli. She was transferred to TCU for therapy and continuation of IV antibiotics. At present doing really well, in very good spirits . Finished course of Iv antibiotics for UTI and participating with PT. 1. Lewy Body Dementia with behavior disturbance at present very pleasant in good spirits on and off effect daughter refused Trazodone or Seroquel to be given to her mother 2. UTI received Ceftriaxone 1gm IV q 12hrs for 3 days repeat urinalysis still + for leukocyte esterase Repeat urine cx pwith multiple species [id number] colonies. Will repeat clean catch urine cx 3. Hypertension BP controlled Continue Coreg, HCTZ/Losartan 4. Hypelipedemia Continue Atorvastatin 5. Deconditioning Continue PT 6. DVT prophylaxis on Lovenox
[2018-03-30] MEDS: Enoxaparin 40 mg Syringe SC SCH (08:22)
[2018-03-31] MEDS: Enoxaparin 40 mg Syringe SC SCH (08:35)
--- NOTE | 2018-03-31 20:53 | CP.PCM.PN ---
Subjective - Date & Time of Evaluation Date of Evaluation: 03/31/18 Time of Evaluation: 11:40 - Subjective Subjective: Patient seen and examined. Denied any discomfort Objective - Vital Signs/Intake and Output Vital Signs (last 24 hours): Temp Pulse Resp BP Pulse Ox 98.8 F 84 20 104/66 97 03/31/18 19:39 03/31/18 19:39 03/31/18 19:39 03/31/18 19:39 03/31/18 19:39 - Medications Medications: Current Medications Alprazolam (Xanax) 0.5 mg PO HS PRN PRN Reason: Agitation Last Admin: 03/30/18 20:36 Dose: 0.5 mg Aspirin (Ecotrin) 81 mg PO DAILY [facility] Last Admin: 03/31/18 08:35 Dose: 81 mg Atorvastatin Calcium (Lipitor) 40 mg PO HS [facility] Last Admin: 03/30/18 22:56 Dose: 40 mg Carvedilol (Coreg) 3.125 mg PO Q12 [facility] Last Admin: 03/31/18 08:34 Dose: 3.125 mg Clopidogrel Bisulfate (Plavix) 75 mg PO DAILY [facility] Last Admin: 03/31/18 08:35 Dose: 75 mg Enoxaparin Sodium (Lovenox) 40 mg SC DAILY [facility]; Protocol Last Admin: 03/31/18 08:35 Dose: 40 mg Famotidine (Pepcid) 20 mg PO HS [facility] Last Admin: 03/30/18 22:56 Dose: 20 mg Hydrochlorothiazide (Microzide) 12.5 mg PO DAILY [facility] Last Admin: 03/31/18 08:35 Dose: 12.5 mg Losartan Potassium (Cozaar) 50 mg PO DAILY [facility] Last Admin: 03/31/18 08:34 Dose: 50 mg - Labs Labs: 03/17/18 05:30 03/20/18 18:40 - Constitutional Appears: No Acute Distress - Head Exam Head Exam: ATRAUMATIC - Eye Exam Eye Exam: absent: Scleral icterus - ENT Exam ENT Exam: Mucous Membranes Moist - Neck Exam Neck Exam: absent: Meningismus - Respiratory Exam Respiratory Exam: absent: Rales, Rhonchi, Wheezes, Respiratory Distress - Cardiovascular Exam Cardiovascular Exam: REGULAR RHYTHM, +S1, +S2 - GI/Abdominal Exam GI & Abdominal Exam: Soft. absent: Tenderness - Rectal Exam Rectal Exam: Deferred - Neurological Exam Neurological Exam: Alert - Psychiatric Exam Psychiatric exam: Normal Affect - Skin Skin Exam: Dry, Intact Assessment and Plan - Assessment and Plan (Free Text) Assessment: 82 yo female with history of Lewy body dementia and HTN was seen in the ER because of slurred speech, tingling sensation of the right arm and a 10 minute period of blacking out. Patient was admitted on 03/09/18 for possible stroke but CT scan and MRI were both negative for acute CVA. Patient continued to have behavioral disturbance and was found to have UTI secondary to E coli. She was transferred to TCU for therapy and continuation of IV antibiotics. At present doing really well, in very good spirits . Finished course of Iv antibiotics for UTI and participating with PT. 1. Lewy Body Dementia with behavior disturbance on and off sundowning effect 2. UTI urine culture grew Enterococcus Faecium sensitive to Nitrofurantoin Macrobid 100mg PO BID 3. Hypertension BP controlled Continue Coreg, HCTZ/Losartan 4. Hypelipedemia Continue Atorvastatin 5. Deconditioning Continue PT 6. DVT prophylaxis on Lovenox
[2018-04-01 07:05] LABS: BLOOD UREA NITROGEN 19 mg/dl (7-17); CALCIUM 9.3 mg/dL (8.4-10.2); GFR NON-AFRICAN AMERICAN > 60
[2018-04-01] MEDS: Enoxaparin 40 mg Syringe SC SCH (08:46)
[2018-04-01 15:36] VITALS: RESP 20
[2018-04-02] MEDS: Enoxaparin 40 mg Syringe SC SCH (08:39)
[2018-04-02] MEDS ORDERED: Mupirocin 2% Oint 1GM UD TOP SCH (17:00)
[2018-04-03] MEDS: Enoxaparin 40 mg Syringe SC SCH (09:22)
[2018-04-03] MEDS ORDERED: Alum-Mag Hydrox-Simethicone Susp (30 mL) PO ONE (17:36)
[2018-04-04] MEDS: Enoxaparin 40 mg Syringe SC SCH (09:01)
--- NOTE | 2018-04-04 14:24 | CP.PCM.DIS ---
Provider - Provider Date of Admission: 03/16/18 18:57 Attending physician: Eliana Cole MD Primary care physician: podiatry consult Consults: 03/16/18 18:50 Nursing Referral for Wound Care Routine Comment: Physician Instructions: Reason For Exam: admission 03/18/18 07:36 Psychiatry Consult Routine Comment: Consulting Provider: Coby Nicole Consulting Physician: Coby Nicole Reason for Consult: increasing confusion and agitation 03/18/18 18:58 Podiatry Consult Routine Comment: Consulting Provider: Silver Ramirez Consulting Physician: Silver Ramirez Reason for Consult: cut toe nail 03/26/18 17:20 [facility]ER Consult Routine Comment: Consulting Provider: Trenton Cassidy Consulting Physician: Trenton Cassidy Reason for Consult: for pissary change Time Spent in preparation of Discharge (in minutes): 20 Hospital Course - Lab Results Lab Results: Micro Results 03/27/18 23:11 Urine,Clean Catch Urine Culture - Final Enterococcus Faecium 03/24/18 22:38 Urine,Clean Catch Urine Culture - Final 50-100,000 CFU/ML. MULTIPLE SPECIES. SUGGEST REPEAT SPECIMEN. Most Recent Lab Values WBC 9.5 K/uL (4.8-10.8) 03/17/18 05:30 RBC 4.66 Mil/uL (3.80-5.20) 03/17/18 05:30 Hgb 12.7 g/dL (12.0-16.0) 03/17/18 05:30 Hct 38.3 % (34.0-47.0) 03/17/18 05:30 MCV 82.2 fl (81.0-99.0) 03/17/18 05:30 MCH 27.4 pg (27.0-31.0) 03/17/18 05:30 MCHC 33.3 g/dL (33.0-37.0) 03/17/18 05:30 RDW 14.5 % (11.5-14.5) 03/17/18 05:30 Plt Count 280 K/uL (130-400) 03/17/18 05:30 MPV 8.4 fl (7.2-11.7) 03/17/18 05:30 Neut % (Auto) 73.0 % (50.0-75.0) 03/17/18 05:30 Lymph % (Auto) 14.3 % (20.0-40.0) L 03/17/18 05:30 [place] % (Auto) 10.9 % (0.0-10.0) H 03/17/18 05:30 Eos % (Auto) 1.3 % (0.0-4.0) 03/17/18 05:30 Baso % (Auto) 0.5 % (0.0-2.0) 03/17/18 05:30 Neut # (Auto) 7.0 K/uL (1.8-7.0) 03/17/18 05:30 Lymph # (Auto) 1.4 K/uL (1.0-4.3) 03/17/18 05:30 Warren # (Auto) 1.0 K/uL (0.0-0.8) H 03/17/18 05:30 Eos # (Auto) 0.1 K/uL (0.0-0.7) 03/17/18 05:30 Baso # (Auto) 0.1 K/uL (0.0-0.2) 03/17/18 05:30 Sodium 140 mmol/l (132-148) 04/01/18 05:45 Potassium 4.2 MMOL/L (3.6-5.0) 04/01/18 05:45 Chloride 104 mmol/L (98-107) 04/01/18 05:45 Carbon Dioxide 29 mmol/L (22-30) 04/01/18 05:45 Anion Gap 11 (10-20) 04/01/18 05:45 BUN 19 mg/dl (7-17) H 04/01/18 05:45 Creatinine 0.8 mg/dl (0.7-1.2) 04/01/18 05:45 Est GFR ( Amer) > 60 04/01/18 05:45 Est GFR (Non-Af Amer) > 60 04/01/18 05:45 Random Glucose 92 mg/dL (65-105) 04/01/18 05:45 Calcium 9.3 mg/dL (8.4-10.2) 04/01/18 05:45 Total Bilirubin 0.5 mg/dl (0.2-1.3) 03/17/18 05:30 AST 40 U/L (14-36) H D 03/17/18 05:30 ALT 58 U/L (9-52) H D 03/17/18 05:30 Alkaline Phosphatase 72 U/L (38-126) 03/17/18 05:30 Total Protein 6.6 G/DL (6.3-8.2) 03/17/18 05:30 Albumin 3.6 g/dL (3.5-5.0) 03/17/18 05:30 Globulin 3.0 gm/dL (2.2-3.9) 03/17/18 05:30 Albumin/Globulin Ratio 1.2 (1.0-2.1) 03/17/18 05:30 Vitamin B12 473 pg/mL (239-931) 03/17/18 05:30 Folate 11.9 ng/mL 03/17/18 05:30 Urine Color Yellow (YELLOW) 03/28/18 10:29 Urine Clarity Cloudy (Clear) 03/28/18 10:29 Urine pH 5.0 (5.0-8.0) 03/28/18 10:29 Ur Specific [place] 1.025 (1.003-1.030) 03/28/18 10:29 Urine Protein Negative mg/dL (NEGATIVE) 03/28/18 10:29 Urine Glucose (UA) Neg mg/dL (NEGATIVE) 03/28/18 10:29 Urine Ketones Negative mg/dL (NEGATIVE) 03/28/18 10:29 Urine Blood Small (NEGATIVE) 03/28/18 10:29 Urine Nitrate Negative (NEGATIVE) 03/28/18 10:29 Urine Bilirubin Negative (NEGATIVE) 03/28/18 10:29 Urine Urobilinogen 0.2-1.0 mg/dL (0.2-1.0) 03/28/18 10:29 Ur Leukocyte Esterase Mod [place]/uL (Negative) 03/28/18 10:29 Urine RBC (Auto) 5 /hpf (0-3) H 03/28/18 10:29 Urine Microscopic WBC 24 /hpf (0-5) H 03/28/18 10:29 Ur Squamous Epith Cells 11 /hpf (0-5) H 03/28/18 10:29 Urine Bacteria Rare (<OCC) 03/28/18 10:29 Hyaline Casts 3-5 /hpf (0-2) H 03/24/18 22:38 - Hospital Course Hospital Course: 82 yo female with history of Lewy body dementia and HTN was seen in the ER because of slurred speech, tingling sensation of the right arm and a 10 minute period of blacking out. Patient was admitted on 03/09/18 for possible stroke but CT scan and MRI were both negative for acute CVA. Patient continued to have behavioral disturbance and was found to have UTI secondary to E coli. She was transferred to TCU for therapy and continuation of IV antibiotics. At present doing really well, in very good spirits . Finished course of Iv antibiotics for UTI and participating with PT. Will discharge to [facility] 1. Lewy Body Dementia with behavior disturbance on and off effect daughter refusing psychiatric meds 2. UTI urine culture grew Enterococcus Faecium sensitive to Nitrofurantoin Macrobid 100mg PO BID started 04/01 . Continue for 4 more days 3. Hypertension BP controlled Continue Coreg, HCTZ/Losartan 4. Hypelipedemia Continue Atorvastatin 5. Deconditioning Continue PT 6. DVT prophylaxis on Lovenox Discharge Exam - Head Exam Head Exam: ATRAUMATIC, NORMOCEPHALIC - Eye Exam Eye Exam: EOMI, PERRL Pupil Exam: NORMAL ACCOMODATION - ENT Exam ENT Exam: Mucous Membranes Moist, Normal Exam - Neck Exam Neck exam: Full Rom, Normal Inspection - Respiratory Exam Respiratory Exam: Clear to PA & Lateral, NORMAL BREATHING PATTERN. absent: Rales, Rhonchi, Wheezes - Cardiovascular Exam Cardiovascular Exam: REGULAR RHYTHM, RRR, +S1, +S2. absent: JVD - GI/Abdominal Exam GI & Abdominal Exam: Normal Bowel Sounds, Soft. absent: Distended, Guarding, Rebound, Tenderness - Rectal Exam Rectal Exam: Deferred - Extremities Exam Extremities exam: normal capillary refill, normal inspection, pedal pulses present - Back Exam Back exam: NORMAL INSPECTION - Neurological Exam Neurological exam: Alert, CN II-XII Intact, Normal Gait - Psychiatric Exam Psychiatric exam: Normal Affect, Normal Mood - Skin Skin Exam: Dry, Intact, Normal Color, Warm Discharge Plan - Follow Up Plan Condition: GOOD Disposition: TRANSF TO SNF Patient education suggested?: Yes Referrals: Joanne Capps MD [Family Provider] -
[2018-04-04 16:14] VITALS: BP 125/65; PULSE 72; O2SAT 94
[2018-04-04 17:12] VITALS: TEMP 98.2
== END 2018-04-04 18:08 | DRG 690 ==
LOC: H.TCU 18:57
PROVIDERS: ADMIT Internal Medicine; ATTEND Internal Medicine
PROC: 3E03329 Introduction of Other Anti-infective into Peripheral Vein, Percutaneous Approach (ICD-10-PCS; principal; 2018-03-16)
PROC: F07Z9FZ Gait Training/Functional Ambulation Treatment using Assistive, Adaptive, Supportive or Protective Equipment (ICD-10-PCS; 2018-03-16)
PROC: F08Z4FZ Home Management Treatment using Assistive, Adaptive, Supportive or Protective Equipment (ICD-10-PCS; 2018-03-16)
PROC: F07M6FZ Therapeutic Exercise Treatment of Musculoskeletal System - Whole Body using Assistive, Adaptive, Supportive or Protective Equipment (ICD-10-PCS; 2018-03-17)
DX: N39.0 Urinary tract infection, site not specified (principal); F02.81 Dementia in other diseases classified elsewhere, unspecified severity, with behavioral disturbance; F05 Delirium due to known physiological condition; B95.2 Enterococcus as the cause of diseases classified elsewhere; B96.20 Unspecified Escherichia coli [E. coli] as the cause of diseases classified elsewhere; R32 Unspecified urinary incontinence; G31.83 Neurocognitive disorder with Lewy bodies; Z16.29 Resistance to other single specified antibiotic; L60.3 Nail dystrophy; R26.81 Unsteadiness on feet; F41.9 Anxiety disorder, unspecified; I10 Essential (primary) hypertension; E78.00 Pure hypercholesterolemia, unspecified; E78.5 Hyperlipidemia, unspecified; Z87.442 Personal history of urinary calculi; Z87.891 Personal history of nicotine dependence; Z88.6 Allergy status to analgesic agent

== ENCOUNTER 2018-04-20 18:55 | Observation (INO) | payer BC, MEDICARE ==
[2018-04-20] MEDS ORDERED: Albuterol-Ipratrop 3 mg / 0.5 (3 ml) UD INH STA ×2 (19:54→19:56)
[2018-04-20] MEDS ORDERED: Ciprofloxacin 400mg/200ml D5W 400 MG/200 ML BAG IVPB STA (19:58)
[2018-04-20] MEDS ORDERED: Cefepime 1 GM in Sodium Chloride 0.9% 100 ML IVPB STA (19:58)
[2018-04-20] MEDS ORDERED: Sodium Chloride 0.9% 1,000 ML IV STA (20:40)
--- NOTE | 2018-04-20 20:45 | ED PDOC ---
HPI: CCC, URI, Sore Throat Time Seen by Provider: 04/20/18 19:34 Chief Complaint (Nursing): Flu-like Symptoms Chief Complaint (Provider): Flu-like Symptoms History Per: Family (daughter) History/Exam Limitations: no limitations Onset/Duration Of Symptoms: Days (x 12) Current Symptoms Are (Timing): Still Present Associated Symptoms: Fever, Cough, Sputum (yellow) Additional Complaint(s): 83 year old female with a history of Lewy body dementia and HTN presents to the ED with cough and fever. Daughter provides history and states mother has had 11- 12 days of cough productive of yellow phlegm. Her fever developed today. She also reports that mother has become less conversant. Daughter is unsure of her mother's PO intake because she is in rehabilitation center. Patient is in rehab at group home after she was admittied to this hospital for UTI. Denies vomiting and diarrhea. PMD: Damon Walters Past Medical History Reviewed: Historical Data, Nursing Documentation, Vital Signs Vital Signs: Last Vital Signs Temp 100.4 F H 04/20/18 18:59 Pulse 100 H 04/20/18 18:59 Resp 17 04/20/18 18:59 BP 148/90 04/20/18 18:59 Pulse Ox 96 04/20/18 18:59 - Medical History PMH: Dementia (Lewy body), HTN, Hypercholesterolemia, Kidney Stones, Chronic Kidney Disease - Surgical History Surgical History: Cholecystectomy - Family History Family History: States: Unknown Family Hx - Home Medications Home Medications: Ambulatory Orders Medication Instructions Recorded RX: Atorvastatin [Lipitor] 40 mg PO HS tab 03/16/18 RX: Carvedilol [Coreg] 3.125 mg PO Q12 tab 03/16/18 RX: Clopidogrel [Plavix] 75 mg PO DAILY tab 03/16/18 RX: Famotidine [Pepcid] 20 mg PO HS 03/16/18 RX: HCTZ/Losartan Potassium 1 tab PO DAILY 03/16/18 [Hyzaar 12.5 mg-50 mg] Albuterol/Ipratropium [Duoneb 3 3 mg INH Q6H 04/20/18 mg/0.5 mg (3 ml) UD] Cranberry Fruit Extract [Cran-Max] 500 mg PO BID 04/20/18 Zinc Oxide 11.3% [Balmex 11.3%] 1 applic Q12 04/20/18 - Allergies Allergies/Adverse Reactions: Allergies Allergy/AdvReac Type Severity Reaction Status Date / Time codeine Allergy DIZZINESS Verified 04/20/18 19:02 Review of Systems ROS Statement: Except As Marked, All Systems Reviewed And Found Negative Constitutional: Positive for: Fever Respiratory: Positive for: Cough, Sputum (yellow). Negative for: Shortness of Breath Gastrointestinal: Negative for: Nausea, Vomiting, Abdominal Pain, Diarrhea Physical Exam - Reviewed Nursing Documentation Reviewed: Yes Vital Signs Reviewed: Yes - Physical Exam Appears: Positive for: Non-toxic, No Acute Distress (patient is febrile) Head Exam: Positive for: ATRAUMATIC, NORMAL INSPECTION, NORMOCEPHALIC Skin: Positive for: Normal Color, Warm, Dry Eye Exam: Positive for: EOMI, Normal appearance, PERRL Neck: Positive for: Normal, Painless ROM, Supple Cardiovascular/Chest: Positive for: Tachycardia (with regular rhythm). Negative for: Murmur Respiratory: Positive for: Decreased Breath Sounds (decreased air entry). Negative for: Respiratory Distress Gastrointestinal/Abdominal: Positive for: Normal Exam, Soft. Negative for: Tenderness Back: Positive for: Normal Inspection. Negative for: L CVA Tenderness, R CVA Tenderness Extremity: Positive for: Normal ROM (x 4). Negative for: Deformity Neurologic/Psych: Positive for: Alert, Oriented (x 3). Negative for: Motor/Sensory Deficits - Laboratory Results Result Diagrams: 04/20/18 21:05 04/20/18 21:05 - ECG O2 Sat by Pulse Oximetry: 96 (RA) Pulse Ox Interpretation: Normal Medical Decision Making Medical Decision Makin:42 Impression: 83 year old female, resident of subacute rehab, with fever and cough Initial Plan: Labs ordered, EKG and CXR Orders: --EKG --BNP --VCMP --CBC --lactic acid --Troponin --Urine dip --PTT/PT --CXR --Cipro 400 gm in 200 ml IV --Duoneb 3 ml INH --Duoneb 3 ml INH --Cefepime 1 gm in 100 ml NS IVPB --Vancomycin 1250 mg in 250 ml NS IVPB --Blood cx --peak flow pre post --Peak flow pre post --Influenza Ab 22:22 --CXR is significant for bilateral infiltrate --labs reviewed and reveal elevated white blood cell count and positive influenza A result. --Patient will be treated for influenza and pneumonia. Cipro, Vancomycin, Tylenol and Tamiflu ordered. --Case referred to hospitalist, Dr. Mcmillan who accepted patient. Scribe Attestation: Documented by Pippa Ortiz acting as a scribe for Travis Uriostegui MD Provider Scribe Attestation: All medical record entries made by the Scribe were at my direction and personally dictated by me. I have reviewed the chart and agree that the record accurately reflects my personal performance of the history, physical exam, medical decision making, and the department course for this patient. I have also personally directed, reviewed, and agree with the discharge instructions and disposition. Disposition - Clinical Impression Clinical Impression: Influenza, Pneumonia - Patient ED Disposition Is Patient to be Admitted: Yes - Disposition Disposition Time: 22:15 Condition: FAIR - Pt Status Changed To: Hospital Disposition Of: Inpatient - Admit Certification Admit to Inpatient:: After my assessment, the patient will require hospitalization for at least two midnights. This is because of the severity of symptoms shown, intensity of services needed, and/or the medical risk in this patient being treated as an outpatient.
[2018-04-20] MEDS ORDERED: Albuterol-Ipratrop 3 mg / 0.5 (3 ml) UD ONE (21:09)
[2018-04-20] MEDS ORDERED: Ciprofloxacin 400mg/200ml D5W 400 MG/200 ML BAG IVPB ONE (21:10)
[2018-04-20 21:15] LABS: BASO # 0.1 K/uL (0.0-0.2); BASO % 0.7 % (0.0-2.0); EOS % 0.2 % (0.0-4.0); HEMOGLOBIN 11.6 g/dL (12.0-16.0); LYMPH # 0.4 K/uL (1.0-4.3); LYMPH % 3.1 % (20.0-40.0); MEAN CELL VOLUME 81.7 fl (81.0-99.0); MEAN CORPUSCULAR HGB CONC 31.9 g/dL (33.0-37.0); MEAN PLATELET VOLUME 7.9 fl (7.2-11.7); MONO # 0.4 K/uL (0.0-0.8); MONO % 3.1 % (0.0-10.0); NEUT # 12.8 K/uL (1.8-7.0); NEUT % 92.9 % (50.0-75.0); PLATELET COUNT 330 K/uL (130-400); RBC 4.45 Mil/uL (3.80-5.20); RED CELL DISTRIBUTION WIDTH 14.4 % (11.5-14.5); WHITE BLOOD COUNT 13.7 K/uL (4.8-10.8)
[2018-04-20 21:18] LABS: INR 1.2; PROTHROMBIN TIME 13.2 Seconds (9.8-13.1)
[2018-04-20 21:21] LABS: PARTIAL THROMBOPLASTIN TIME 31.1 Seconds (25.6-37.1)
[2018-04-20 21:39] LABS: ALB/GLOB RATIO 1.1 (1.0-2.1); ALBUMIN 3.5 g/dL (3.5-5.0); ALT/SGPT 19 U/L (9-52); AST/SGOT 23 U/L (14-36); BLOOD UREA NITROGEN 14 mg/dl (7-17); CALCIUM 9.5 mg/dL (8.4-10.2); GFR NON-AFRICAN AMERICAN > 60
[2018-04-20 21:48] LABS: B-TYPE NATRIURETIC PEPTIDE 1170 pg/ml (0-900)
[2018-04-20 22:17] LABS: ANISOCYTOSIS SLIGHT; BANDS 3 % (0-2); LYMPHOCYTE 6 % (20-50); MONOCYTE 4 % (0-10); NEUTROPHIL 87 % (42-75); PLATELET ESTIMATE NORMAL (NORMAL); TOTAL CELLS COUNTED 100
[2018-04-20 22:18] LABS: HYPERSEGMENTATION PRESENT; HYPOCHROMIC SLIGHT; MICROCYTOSIS SLIGHT; POIKILOCYTOSIS SLIGHT
[2018-04-20] MEDS ORDERED: Vancomycin 1 g Inj ONE (22:27)
[2018-04-20] MEDS ORDERED: Oseltamivir 6 MG/ML PO STA (22:53)
--- NOTE | 2018-04-20 23:04 | CP.PCM.HP ---
<Jozef Araiza - Last Filed: 04/21/18 02:16> History of Present Illness - History of Present Illness History of Present Illness: History taken from patient and patient's daughter due to patient's dementia 83 y/o F with a PMHx Lewy body dementia, hypertension, and HLD was brought to ED due to fever and persistent cough. Daughter reports that pt stays at longterm where pt started to cough 12 days ago, pt was given an unspecified antibiotics and Robitussin at the beginning of cough; and then pt was switched to Azithromycin without controlling cough which was aggravating and becoming productive. CXR on 04/12/18 showed no active disease. Pt was brought to ED today because of fever. --Pt was recently hospitalized from 03/09/18 to 04/04/18 due to suspicion of CVA and treatment of UTI. Patient was evaluated by neurologist and extensive workup, including CT head, MRI brain, MRA, Carotid US, did not show any acute stroke. Pt was transferred then to TCU for completion of IV antibiotics. PCP: Damon Walters PMHx: Lewy Body Dementia, HTN, HLD PSHX: Denied Social hx: lives at home. Denies any hx smoking cigarettes, EtOH use or illicit drugs. Family hx: non contributory Allergies: Codeine: vomiting Medications: Alprazolam [0.5 mg PO PRN, Aspirin 81 mg PO DAILY, Candesartan/Hydrochlorothiazide 32/12.5 mg 1 tab PO DAILY PMD: Dr. Capps Surrogate decision maker: Pao (daughter) [phone] Code Status: full code At ED: --Vital signs: temp 101.9 F, slightly tachycardic 100. --CBC showed leukocytosis 13.7-high, neutrophilic predominance. --Serology positive for influenza. --Pro-BNP [id number] --Troponin negative --IV Cefepime and IV CIprofloxacin were administered --Duoneb 3mL x2 and Tylenol 950mg per rectum were given. Present on Admission - Present on Admission Any Indicators Present on Admission: No Review of Systems - Review of Systems Systems not reviewed;Unavailable: Dementia Past Patient History - Past Medical History & Family History Past Medical History?: Yes - Past Social History Smoking Status: Former Smoker - CARDIAC Hx Hypercholesterolemia: Yes Hx Hypertension: Yes - PULMONARY Hx Respiratory Disorders: No - NEUROLOGICAL Hx Dementia: Yes (Lewy body) - HEENT Hx HEENT Problems: No - RENAL Hx Chronic Kidney Disease: Yes Hx Kidney Stones: Yes - ENDOCRINE/METABOLIC Hx Endocrine Disorders: No - HEMATOLOGICAL/ONCOLOGICAL Hx Blood Disorders: No - INTEGUMENTARY Hx Dermatological Problems: No - MUSCULOSKELETAL/RHEUMATOLOGICAL Hx Musculoskeletal Disorders: Yes Hx Falls: No Hx Unsteady Gait: Yes - GASTROINTESTINAL Hx Gastrointestinal Disorders: No - GENITOURINARY/GYNECOLOGICAL Hx Genitourinary Disorders: No - PSYCHIATRIC Hx Substance Use: No Other/Comment: dementia - SURGICAL HISTORY Hx Cholecystectomy: Yes - ANESTHESIA Hx Anesthesia: Yes Hx Anesthesia Reactions: No Meds Allergies/Adverse Reactions: Allergies Allergy/AdvReac Type Severity Reaction Status Date / Time codeine Allergy DIZZINESS Verified 04/20/18 19:02 Physical Exam - Constitutional Appears: No Acute Distress - Head Exam Head Exam: ATRAUMATIC, NORMAL INSPECTION - Eye Exam Eye Exam: EOMI, Normal appearance - ENT Exam ENT Exam: Mucous Membranes Dry - Neck Exam Neck exam: Positive for: Full Rom. Negative for: Lymphadenopathy, Meningismus - Respiratory Exam Respiratory Exam: Decreased Breath Sounds (bilaterally), NORMAL BREATHING PATTERN. absent: Wheezes, Respiratory Distress - GI/Abdominal Exam GI & Abdominal Exam: Soft. absent: Distended, Guarding, Rigid, Tenderness - Extremities Exam Extremities exam: Positive for: full ROM, normal inspection. Negative for: calf tenderness Results - Vital Signs Recent Vital Signs: Last Vital Signs Temp 99.8 F H 04/20/18 22:41 Pulse 94 H 04/20/18 22:41 Resp 16 04/20/18 22:41 BP 103/43 L 04/20/18 22:41 Pulse Ox 95 04/20/18 22:41 - Labs Result Diagrams: 04/20/18 21:05 04/20/18 21:05 Labs: Laboratory Results - last 24 hr 04/20/18 04/20/18 04/20/18 21:05 21:05 21:05 WBC 13.7 H RBC 4.45 Hgb 11.6 L Hct 36.4 MCV 81.7 MCH 26.0 L MCHC 31.9 L RDW 14.4 Plt Count 330 MPV 7.9 Neut % (Auto) 92.9 H Lymph % (Auto) 3.1 L [place] % (Auto) 3.1 Eos % (Auto) 0.2 Baso % (Auto) 0.7 Neut # (Auto) 12.8 H Lymph # (Auto) 0.4 L [place] # (Auto) 0.4 Eos # (Auto) 0.0 Baso # (Auto) 0.1 Neutrophils % (Manual) 87 H Band Neutrophils % 3 H Lymphocytes % (Manual) 6 L Monocytes % (Manual) 4 Hypersegmented Polys Present Platelet Estimate Normal Hypochromasia (manual) Slight Poikilocytosis (manual Slight Anisocytosis (manual) Slight Microcytosis (manual) Slight PT INR APTT Sodium 141 Potassium 3.8 Chloride 106 Carbon Dioxide 26 Anion Gap 13 BUN 14 Creatinine 0.7 Est GFR ( Amer) > 60 Est GFR (Non-Af Amer) > 60 Random Glucose 134 H Lactic Acid 0.9 Calcium 9.5 Total Bilirubin 0.5 AST 23 ALT 19 Alkaline Phosphatase 98 Troponin I 0.0250 NT-Pro-B Natriuret Pep 1170 H Total Protein 6.8 Albumin 3.5 Globulin 3.3 Albumin/Globulin Ratio 1.1 Influenza Typ A,B (EIA) 04/20/18 04/20/18 21:05 21:05 WBC RBC Hgb Hct MCV MCH MCHC RDW Plt Count MPV Neut % (Auto) Lymph % (Auto) [place] % (Auto) Eos % (Auto) Baso % (Auto) Neut # (Auto) Lymph # (Auto) [place] # (Auto) Eos # (Auto) Baso # (Auto) Neutrophils % (Manual) Band Neutrophils % Lymphocytes % (Manual) Monocytes % (Manual) Hypersegmented Polys Platelet Estimate Hypochromasia (manual) Poikilocytosis (manual Anisocytosis (manual) Microcytosis (manual) PT 13.2 H INR 1.2 APTT 31.1 Sodium Potassium Chloride Carbon Dioxide Anion Gap BUN Creatinine Est GFR ( Amer) Est GFR (Non-Af Amer) Random Glucose Lactic Acid Calcium Total Bilirubin AST ALT Alkaline Phosphatase Troponin I NT-Pro-B Natriuret Pep Total Protein Albumin Globulin Albumin/Globulin Ratio Influenza Typ A,B (EIA) Pos for influenza a H Assessment & Plan - Assessment and Plan (Free Text) Assessment: 83 y/o F with a PMHx Lewy body dementia, hypertension, and HLD was admitted for evaluation and management of sepsis, influenza viral infection and bilateral pneumonia. PLAN >Sepsis due to Bilateral pneumonia --Meets criteria for sepsis: fever, HR>90, Leukocytosis, pneumonia/influenza-A as source of infection. --Superimposed pneumonia on influenza viral infection vs Hospital acquired pneumonia --F/U CXR final report. --Sputum culture ordered --IV NS at 100mL/hr. (Aware of elevated pro-BNP. No previous Hx of CHF) --IV Vancomycin, IV Levofloxacin and IV Cefepime ordered. --Tylenol PRN for fever, Robitussin PRN for cough --F/u strep pneumo urine Ag, Legionela urine Ag, Sputum culture >Influenza A viral infection --Fever initiated today --Oseltamivir BID initiated. --Tylenol PRN for pain. >Hypertension: --Chronic --Home meds resumed >Lewy Body Dementia --Chronic >DVT prophylaxis --Lovenox 40 mg SC daily --SCD's Code Status -Full code Discussed with Dr Mcmillan, hospitalist Stacey PGY-2 <Rui Mcmillan - Last Filed: 04/21/18 04:00> Results - Vital Signs Recent Vital Signs: Last Vital Signs Temp 99.8 F H 04/20/18 22:41 Pulse 81 04/21/18 01:27 Resp 15 04/21/18 01:27 BP 126/69 04/21/18 01:27 Pulse Ox 98 04/21/18 01:27 - Labs Result Diagrams: 04/20/18 21:05 04/20/18 21:05 Labs: Laboratory Results - last 24 hr 04/20/18 04/20/18 04/20/18 21:05 21:05 21:05 WBC 13.7 H RBC 4.45 Hgb 11.6 L Hct 36.4 MCV 81.7 MCH 26.0 L MCHC 31.9 L RDW 14.4 Plt Count 330 MPV 7.9 Neut % (Auto) 92.9 H Lymph % (Auto) 3.1 L [place] % (Auto) 3.1 Eos % (Auto) 0.2 Baso % (Auto) 0.7 Neut # (Auto) 12.8 H Lymph # (Auto) 0.4 L [place] # (Auto) 0.4 Eos # (Auto) 0.0 Baso # (Auto) 0.1 Neutrophils % (Manual) 87 H Band Neutrophils % 3 H Lymphocytes % (Manual) 6 L Monocytes % (Manual) 4 Hypersegmented Polys Present Platelet Estimate Normal Hypochromasia (manual) Slight Poikilocytosis (manual Slight Anisocytosis (manual) Slight Microcytosis (manual) Slight PT INR APTT Sodium 141 Potassium 3.8 Chloride 106 Carbon Dioxide 26 Anion Gap 13 BUN 14 Creatinine 0.7 Est GFR ( Amer) > 60 Est GFR (Non-Af Amer) > 60 Random Glucose 134 H Lactic Acid 0.9 Calcium 9.5 Total Bilirubin 0.5 AST 23 ALT 19 Alkaline Phosphatase 98 Troponin I 0.0250 NT-Pro-B Natriuret Pep 1170 H Total Protein 6.8 Albumin 3.5 Globulin 3.3 Albumin/Globulin Ratio 1.1 Influenza Typ A,B (EIA) 04/20/18 04/20/18 21:05 21:05 WBC RBC Hgb Hct MCV MCH MCHC RDW Plt Count MPV Neut % (Auto) Lymph % (Auto) [place] % (Auto) Eos % (Auto) Baso % (Auto) Neut # (Auto) Lymph # (Auto) [place] # (Auto) Eos # (Auto) Baso # (Auto) Neutrophils % (Manual) Band Neutrophils % Lymphocytes % (Manual) Monocytes % (Manual) Hypersegmented Polys Platelet Estimate Hypochromasia (manual) Poikilocytosis (manual Anisocytosis (manual) Microcytosis (manual) PT 13.2 H INR 1.2 APTT 31.1 Sodium Potassium Chloride Carbon Dioxide Anion Gap BUN Creatinine Est GFR ( Amer) Est GFR (Non-Af Amer) Random Glucose Lactic Acid Calcium Total Bilirubin AST ALT Alkaline Phosphatase Troponin I NT-Pro-B Natriuret Pep Total Protein Albumin Globulin Albumin/Globulin Ratio Influenza Typ A,B (EIA) Pos for influenza a H Attending/Attestation - Attestation I have personally seen and examined this patient.: Yes I have fully participated in the care of the patient.: Yes I have reviewed all pertinent clinical information: Yes Notes (Text): 04/21/18 03:39 I saw, examined and discussed this patient with Dr Araiza. I agree with the assessment and plan which represent my direct input. This is an 83 years old female discharged from the Transitional Care Unit with antibiotic for UTI, on 04/04/18 to a Rehab. She developed coughing 11 days ago and was treated consecutively with 2 antibiotics, the last being Azithromycin. She comes with fever, coughing with Phlegm, leukocytosis and a chest X-Ray showing patchy bilateral infiltrate and positive Influenza A. We will treat for a Viral Pneumonia with sepsis that could possibly be complicated by Staphylococcus. Cefepime and Levofloxacin to cover gram negatives and Atypical organism and Vancomycin to cover Staphylococcus including MRSA ID is consulted Tamiflu is started for the Influenza with patoient being in Droplet isolation Continue Home medications. EKG shows Sinus Rhythm 91/min with 1st degree AV block is the same as EKG of 03/16/18 Rui Mcmillan MD
[2018-04-20] MEDS ORDERED: Alum-Mag Hydrox-Simethicone Susp (30 mL) PO PRN (23:44)
[2018-04-21] MEDS ORDERED: guaiFENesin DM 200 mg-20 mg/10 ml UD PO PRN (00:02)
[2018-04-21] MEDS ORDERED: Sodium Chloride 3% for Inhalation 4 ML VIAL.NEB IH PRN (01:05)
[2018-04-21] MEDS ORDERED: Sodium Chloride 0.9% 1,000 ML IV STA (01:07)
[2018-04-21] MEDS: Albuterol-Ipratrop 3 mg / 0.5 (3 ml) UD INH SCH ×6 (02:35→23:30)
[2018-04-21] MEDS ORDERED: Albuterol-Ipratrop 3 mg / 0.5 (3 ml) UD ONE ×2 (02:36→06:19)
[2018-04-21 07:08] LABS: HEMOGLOBIN 10.3 g/dL (12.0-16.0); MEAN CELL VOLUME 82.3 fl (81.0-99.0); MEAN CORPUSCULAR HEMOGLOBIN 26.7 pg (27.0-31.0); MEAN CORPUSCULAR HGB CONC 32.5 g/dL (33.0-37.0); RBC 3.86 Mil/uL (3.80-5.20); RED CELL DISTRIBUTION WIDTH 14.5 % (11.5-14.5); WHITE BLOOD COUNT 9.8 K/uL (4.8-10.8)
[2018-04-21 07:16] LABS: BLOOD UREA NITROGEN 15 mg/dl (7-17); CALCIUM 8.8 mg/dL (8.4-10.2); GFR NON-AFRICAN AMERICAN > 60
--- NOTE | 2018-04-21 08:49 | RAD ---
Date of service: 04/20/2018 HISTORY: chest pain COMPARISON: No prior. FINDINGS: LUNGS: No active pulmonary disease. PLEURA: No significant pleural effusion identified, no pneumothorax apparent. CARDIOVASCULAR: Calcific atherosclerotic changes are seen related to the thoracic aorta. Normal cardiac size. No pulmonary vascular congestion. OSSEOUS STRUCTURES: Scoliotic thoracic spinal deformity reiterated. VISUALIZED UPPER ABDOMEN: Normal. OTHER FINDINGS: None. IMPRESSION: No interval acute cardiopulmonary disease appreciated.
[2018-04-21] MEDS ORDERED: levoFLOXacin 750 mg in D5W 150 ML BAG IVPB SCH (09:00)
[2018-04-21] MEDS ORDERED: CRANBERRY FRUIT EXTRACT PO SCH (09:00)
[2018-04-21] MEDS ORDERED: levoFLOXacin 750 mg in D5W 750 MG/150 ML BAG IVPB SCH (09:00)
[2018-04-21] MEDS ORDERED: HCTZ/Losartan 12.5/50 Tab PO SCH (09:00)
[2018-04-21 09:12] LABS: SQUAMOUS EPITHIAL < 1 /hpf (0-5); URINE BILIRUBIN NEGATIVE (NEGATIVE); URINE BLOOD NEGATIVE (NEGATIVE); URINE CLARITY SLIGHTY-CLOUDY (Clear); URINE COLOR YELLOW (YELLOW); URINE GLUCOSE (UA) NEG (NEGATIVE); URINE LEUKOCYTE ESTERASE NEG Leu/uL (Negative); URINE PROTEIN 30 mg/dL (NEGATIVE); URINE UROBILINOGEN 0.2-1.0 mg/dL (0.2-1.0)
--- NOTE | 2018-04-21 10:21 | CP.PCM.CON ---
History of Present Illness - History of Present Illness History of Present Illness: Infectious Disease Consultation Note- asked to see this ayaan at the request of hospitalist for positive flu and ? pneumonia. HPI- Ayaan is known to me from her previous admission. Ayaan is a 83 year old female with PMH of Lewy Body dementia , HTN, HLD, who was admitted for evaluation of cough and fever . Pt. was d/c to rehab after most recent d/c from [facility] and as [facility] records she developed cough at [facility] and was started on antibiotics which were apparently switched twice and had CXR which was negative but wa admitted because of fever . on this admission pt. was found to have positive flu test and has been started on tamiflu already along wioth IV abx to cover for HAp as per admitting doctor. --Pt was recently hospitalized from 03/09/18 to 04/04/18 due to suspicion of CVA and treatment of UTI. Patient was evaluated by neurologist and extensive workup, including CT head, MRI brain, MRA, Carotid US, did not show any acute stroke. Pt was transferred then to TCU for completion of IV antibiotics. currently pt. is sitting in bed, + cough , denies any fever or sob. PMHx: Lewy Body Dementia, HTN, HLD PSHX: Denied Social hx: lives at home. Denies any hx smoking cigarettes, EtOH use or illicit drugs. Family hx: non contributory Allergies: Codeine: vomiting Medications: Alprazolam [0.5 mg PO PRN, Aspirin 81 mg PO DAILY, Candesartan/Hydrochlorothiazide 32/12.5 mg 1 tab PO DAILY Review of Systems - Review of Systems Review of Systems: ROS- has baseline dementia but does answer some questions. Denies any fever or chills, but had fever on admission, + cough, denies any sob, denies anyc hest pain, denies qny abd. pain, no diarrhea, no dysurea Past Patient History - Past Medical History & Family History Past Medical History?: Yes - Past Social History Smoking Status: Former Smoker Home Situation {Lives}: Alf - CARDIAC Hx Hypercholesterolemia: Yes Hx Hypertension: Yes - PULMONARY Hx Respiratory Disorders: No - NEUROLOGICAL Hx Dementia: Yes (Lewy body) - HEENT Hx HEENT Problems: No - RENAL Hx Chronic Kidney Disease: Yes - ENDOCRINE/METABOLIC Hx Endocrine Disorders: No - HEMATOLOGICAL/ONCOLOGICAL Hx Blood Disorders: No - INTEGUMENTARY Hx Dermatological Problems: No - MUSCULOSKELETAL/RHEUMATOLOGICAL Hx Musculoskeletal Disorders: Yes Hx Falls: No Hx Unsteady Gait: Yes - GASTROINTESTINAL Hx Gastrointestinal Disorders: No - GENITOURINARY/GYNECOLOGICAL Hx Genitourinary Disorders: No - PSYCHIATRIC Hx Substance Use: No Other/Comment: dementia - SURGICAL HISTORY Hx Cholecystectomy: Yes - ANESTHESIA Hx Anesthesia: Yes Hx Anesthesia Reactions: No Meds Home Medications: Home Medication List Medication Instructions Recorded Confirmed Type Oseltamivir Cap [Tamiflu Cap] 75 mg PO BID #0 capsule 04/21/18 Rx guaiFENesin/Dextromethorphan 10 ml PO Q12 7 Days #89 ml 04/21/18 Rx [Robitussin DM] Allergies/Adverse Reactions: Allergies Allergy/AdvReac Type Severity Reaction Status Date / Time codeine Allergy DIZZINESS Verified 04/20/18 19:02 - Medications Medications: Current Medications Acetaminophen (Tylenol 325mg Tab) 650 mg PO Q4 PRN PRN Reason: Fever >100.4 F Acetaminophen (Tylenol 325mg Tab) 650 mg PO Q6 PRN PRN Reason: Pain, moderate (4-7) Al Hydrox/Mg Hydrox/Simethicone (Maalox Plus 30 Ml) 30 ml PO Q4 PRN PRN Reason: Indigestion / Heartburn Albuterol/Ipratropium (Duoneb 3 Mg/0.5 Mg (3 Ml) Ud) 3 ml INH Q6H [facility] Last Admin: 04/21/18 06:18 Dose: 3 ml Atorvastatin Calcium (Lipitor) 40 mg PO HS [facility] Carvedilol (Coreg) 3.125 mg PO Q12 [facility] Clopidogrel Bisulfate (Plavix) 75 mg PO DAILY [facility] Enoxaparin Sodium (Lovenox) 40 mg SC DAILY [facility]; Protocol Famotidine (Pepcid) 20 mg PO HS [facility] Guaifenesin/Dextromethorphan (Robitussin Dm) 10 ml PO Q4 PRN PRN Reason: Cough HCTZ/Losartan Potassium (Hyzaar 12.5 Mg-50 Mg) 1 tab PO DAILY [facility] Home Med (Cranberry Fruit Extract [Cran-Max]) 500 mg PO BID [facility] Vancomycin HCl 1.25 gm/ Sodium (Chloride) 250 mls @ 166.667 mls/hr IVPB Q12 [facility]; Protocol Cefepime HCl 1 gm/ Sodium (Chloride) 100 mls @ 100 mls/hr IVPB Q8 [facility]; Protocol Nystatin (Nystop Topical Powder) 1 applic TOP BID [facility] Oseltamivir Phosphate (Tamiflu Cap) 75 mg PO BID [facility]; Protocol Petrolatum (Balmex 11.3%) 1 applic TOP Q12 [facility] Physical Exam - Constitutional Appears: No Acute Distress, Chronically Ill Additional comments: baseline dementia - Eye Exam Eye Exam: EOMI - Neck Exam Neck exam: Positive for: Full Rom - Respiratory Exam Additional comments: has some coarse cough no wheezing no rhonchi - Cardiovascular Exam Cardiovascular Exam: RRR, +S1, +S2 - GI/Abdominal Exam GI & Abdominal Exam: Normal Bowel Sounds, Soft Additional comments: Nt, ND - Extremities Exam Extremities exam: Positive for: normal inspection - Neurological Exam Neurological exam: Altered Additional comments: has lewy body dementia Results - Vital Signs Recent Vital Signs: Last Vital Signs Temp 98.2 F 04/21/18 06:31 Pulse 79 04/21/18 08:42 Resp 18 04/21/18 08:42 BP 117/57 L 04/21/18 08:42 Pulse Ox 99 04/21/18 09:00 - Labs Result Diagrams: 04/21/18 06:45 04/21/18 06:45 Labs: Laboratory Results - last 24 hr 04/20/18 04/20/18 04/20/18 21:05 21:05 21:05 WBC 13.7 H RBC 4.45 Hgb 11.6 L Hct 36.4 MCV 81.7 MCH 26.0 L MCHC 31.9 L RDW 14.4 Plt Count 330 MPV 7.9 Neut % (Auto) 92.9 H Lymph % (Auto) 3.1 L [place] % (Auto) 3.1 Eos % (Auto) 0.2 Baso % (Auto) 0.7 Neut # (Auto) 12.8 H Lymph # (Auto) 0.4 L [place] # (Auto) 0.4 Eos # (Auto) 0.0 Baso # (Auto) 0.1 Neutrophils % (Manual) 87 H Band Neutrophils % 3 H Lymphocytes % (Manual) 6 L Monocytes % (Manual) 4 Hypersegmented Polys Present Platelet Estimate Normal Hypochromasia (manual) Slight Poikilocytosis (manual Slight Anisocytosis (manual) Slight Microcytosis (manual) Slight PT INR APTT Sodium 141 Potassium 3.8 Chloride 106 Carbon Dioxide 26 Anion Gap 13 BUN 14 Creatinine 0.7 Est GFR ( Amer) > 60 Est GFR (Non-Af Amer) > 60 Random Glucose 134 H Lactic Acid 0.9 Calcium 9.5 Total Bilirubin 0.5 AST 23 ALT 19 Alkaline Phosphatase 98 Troponin I 0.0250 NT-Pro-B Natriuret Pep 1170 H Total Protein 6.8 Albumin 3.5 Globulin 3.3 Albumin/Globulin Ratio 1.1 Urine Color Urine Clarity Urine pH Ur Specific [place] Urine Protein Urine Glucose (UA) Urine Ketones Urine Blood Urine Nitrate Urine Bilirubin Urine Urobilinogen Ur Leukocyte Esterase Urine RBC (Auto) Urine Microscopic WBC Ur Squamous Epith Cells Influenza Typ A,B (EIA) 04/20/18 04/20/18 04/21/18 21:05 21:05 06:45 WBC 9.8 RBC 3.86 Hgb 10.3 L Hct 31.8 L MCV 82.3 MCH 26.7 L MCHC 32.5 L RDW 14.5 Plt Count 296 MPV Neut % (Auto) Lymph % (Auto) [place] % (Auto) Eos % (Auto) Baso % (Auto) Neut # (Auto) Lymph # (Auto) [place] # (Auto) Eos # (Auto) Baso # (Auto) Neutrophils % (Manual) Band Neutrophils % Lymphocytes % (Manual) Monocytes % (Manual) Hypersegmented Polys Platelet Estimate Hypochromasia (manual) Poikilocytosis (manual Anisocytosis (manual) Microcytosis (manual) PT 13.2 H INR 1.2 APTT 31.1 Sodium Potassium Chloride Carbon Dioxide Anion Gap BUN Creatinine Est GFR ( Amer) Est GFR (Non-Af Amer) Random Glucose Lactic Acid Calcium Total Bilirubin AST ALT Alkaline Phosphatase Troponin I NT-Pro-B Natriuret Pep Total Protein Albumin Globulin Albumin/Globulin Ratio Urine Color Urine Clarity Urine pH Ur Specific [place] Urine Protein Urine Glucose (UA) Urine Ketones Urine Blood Urine Nitrate Urine Bilirubin Urine Urobilinogen Ur Leukocyte Esterase Urine RBC (Auto) Urine Microscopic WBC Ur Squamous Epith Cells Influenza Typ A,B (EIA) Pos for influenza a H 04/21/18 04/21/18 06:45 08:20 WBC RBC Hgb Hct MCV MCH MCHC RDW Plt Count MPV Neut % (Auto) Lymph % (Auto) [place] % (Auto) Eos % (Auto) Baso % (Auto) Neut # (Auto) Lymph # (Auto) [place] # (Auto) Eos # (Auto) Baso # (Auto) Neutrophils % (Manual) Band Neutrophils % Lymphocytes % (Manual) Monocytes % (Manual) Hypersegmented Polys Platelet Estimate Hypochromasia (manual) Poikilocytosis (manual Anisocytosis (manual) Microcytosis (manual) PT INR APTT Sodium 142 Potassium 3.7 Chloride 108 H Carbon Dioxide 26 Anion Gap 12 BUN 15 Creatinine 0.7 Est GFR ( Amer) > 60 Est GFR (Non-Af Amer) > 60 Random Glucose 122 H Lactic Acid Calcium 8.8 Total Bilirubin AST ALT Alkaline Phosphatase Troponin I NT-Pro-B Natriuret Pep Total Protein Albumin Globulin Albumin/Globulin Ratio Urine Color Yellow Urine Clarity Slighty-cloudy Urine pH 5.0 Ur Specific [place] 1.023 Urine Protein 30 Urine Glucose (UA) Neg Urine Ketones Negative Urine Blood Negative Urine Nitrate Negative Urine Bilirubin Negative Urine Urobilinogen 0.2-1.0 Ur Leukocyte Esterase Neg Urine RBC (Auto) 1 Urine Microscopic WBC 2 Ur Squamous Epith Cells < 1 Influenza Typ A,B (EIA) Laboratory Results - last 72 hr 04/20/18 04/20/18 04/20/18 21:05 21:05 21:05 WBC 13.7 H RBC 4.45 Hgb 11.6 L Hct 36.4 MCV 81.7 MCH 26.0 L MCHC 31.9 L RDW 14.4 Plt Count 330 MPV 7.9 Neut % (Auto) 92.9 H Lymph % (Auto) 3.1 L [place] % (Auto) 3.1 Eos % (Auto) 0.2 Baso % (Auto) 0.7 Neut # (Auto) 12.8 H Lymph # (Auto) 0.4 L [place] # (Auto) 0.4 Eos # (Auto) 0.0 Baso # (Auto) 0.1 Neutrophils % (Manual) 87 H Band Neutrophils % 3 H Lymphocytes % (Manual) 6 L Monocytes % (Manual) 4 Hypersegmented Polys Present Platelet Estimate Normal Hypochromasia (manual) Slight Poikilocytosis (manual Slight Anisocytosis (manual) Slight Microcytosis (manual) Slight PT INR APTT Sodium 141 Potassium 3.8 Chloride 106 Carbon Dioxide 26 Anion Gap 13 BUN 14 Creatinine 0.7 Est GFR ( Amer) > 60 Est GFR (Non-Af Amer) > 60 Random Glucose 134 H Lactic Acid 0.9 Calcium 9.5 Total Bilirubin 0.5 AST 23 ALT 19 Alkaline Phosphatase 98 Troponin I 0.0250 NT-Pro-B Natriuret Pep 1170 H Total Protein 6.8 Albumin 3.5 Globulin 3.3 Albumin/Globulin Ratio 1.1 Urine Color Urine Clarity Urine pH Ur Specific [place] Urine Protein Urine Glucose (UA) Urine Ketones Urine Blood Urine Nitrate Urine Bilirubin Urine Urobilinogen Ur Leukocyte Esterase Urine RBC (Auto) Urine Microscopic WBC Ur Squamous Epith Cells Influenza Typ A,B (EIA) 04/20/18 04/20/18 04/21/18 21:05 21:05 06:45 WBC 9.8 RBC 3.86 Hgb 10.3 L Hct 31.8 L MCV 82.3 MCH 26.7 L MCHC 32.5 L RDW 14.5 Plt Count 296 MPV Neut % (Auto) Lymph % (Auto) [place] % (Auto) Eos % (Auto) Baso % (Auto) Neut # (Auto) Lymph # (Auto) [place] # (Auto) Eos # (Auto) Baso # (Auto) Neutrophils % (Manual) Band Neutrophils % Lymphocytes % (Manual) Monocytes % (Manual) Hypersegmented Polys Platelet Estimate Hypochromasia (manual) Poikilocytosis (manual Anisocytosis (manual) Microcytosis (manual) PT 13.2 H INR 1.2 APTT 31.1 Sodium Potassium Chloride Carbon Dioxide Anion Gap BUN Creatinine Est GFR ( Amer) Est GFR (Non-Af Amer) Random Glucose Lactic Acid Calcium Total Bilirubin AST ALT Alkaline Phosphatase Troponin I NT-Pro-B Natriuret Pep Total Protein Albumin Globulin Albumin/Globulin Ratio Urine Color Urine Clarity Urine pH Ur Specific [place] Urine Protein Urine Glucose (UA) Urine Ketones Urine Blood Urine Nitrate Urine Bilirubin Urine Urobilinogen Ur Leukocyte Esterase Urine RBC (Auto) Urine Microscopic WBC Ur Squamous Epith Cells Influenza Typ A,B (EIA) Pos for influenza a H 04/21/18 04/21/18 06:45 08:20 WBC RBC Hgb Hct MCV MCH MCHC RDW Plt Count MPV Neut % (Auto) Lymph % (Auto) [place] % (Auto) Eos % (Auto) Baso % (Auto) Neut # (Auto) Lymph # (Auto) [place] # (Auto) Eos # (Auto) Baso # (Auto) Neutrophils % (Manual) Band Neutrophils % Lymphocytes % (Manual) Monocytes % (Manual) Hypersegmented Polys Platelet Estimate Hypochromasia (manual) Poikilocytosis (manual Anisocytosis (manual) Microcytosis (manual) PT INR APTT Sodium 142 Potassium 3.7 Chloride 108 H Carbon Dioxide 26 Anion Gap 12 BUN 15 Creatinine 0.7 Est GFR ( Amer) > 60 Est GFR (Non-Af Amer) > 60 Random Glucose 122 H Lactic Acid Calcium 8.8 Total Bilirubin AST ALT Alkaline Phosphatase Troponin I NT-Pro-B Natriuret Pep Total Protein Albumin Globulin Albumin/Globulin Ratio Urine Color Yellow Urine Clarity Slighty-cloudy Urine pH 5.0 Ur Specific [place] 1.023 Urine Protein 30 Urine Glucose (UA) Neg Urine Ketones Negative Urine Blood Negative Urine Nitrate Negative Urine Bilirubin Negative Urine Urobilinogen 0.2-1.0 Ur Leukocyte Esterase Neg Urine RBC (Auto) 1 Urine Microscopic WBC 2 Ur Squamous Epith Cells < 1 Influenza Typ A,B (EIA) Microbiology 03/27/18 23:11 Urine,Clean Catch Urine Culture - Final Enterococcus Faecium 03/24/18 22:38 Urine,Clean Catch Urine Culture - Final 50-100,000 CFU/ML. MULTIPLE SPECIES. SUGGEST REPEAT SPECIMEN. 03/15/18 15:10 Urine Urine Culture - Final Escherichia Coli Accession No. : [id number] Patient Name / ID : VILMA MARCANO / [id number] Exam Date : 04/20/2018 20:32:26 ( Approved ) Study Comment : Sex / Age : F / 83Y Creator : shane garcia Dictator : Jose Anderson MD Mixing Machine Feeder : Senior Php Web Developer : Jose Anderson MD Approver2 : Report Date : 04/20/2018 20:46:43 My Comment : Date of service: 04/20/2018 HISTORY: chest pain COMPARISON: No prior. FINDINGS: LUNGS: No active pulmonary disease. PLEURA: No significant pleural effusion identified, no pneumothorax apparent. CARDIOVASCULAR: Calcific atherosclerotic changes are seen related to the thoracic aorta. Normal cardiac size. No pulmonary vascular congestion. OSSEOUS STRUCTURES: Scoliotic thoracic spinal deformity reiterated. VISUALIZED UPPER ABDOMEN: Normal. OTHER FINDINGS: None. IMPRESSION: No interval acute cardiopulmonary disease appreciated. Assessment & Plan (1) Influenza Status: Acute (2) Fever Status: Acute - Assessment and Plan (Free Text) Assessment: A/P- 83 year old female with h/o Lewy Body dementia, HTN and HLD admitted with fever and cough and found to have positive influenxa test , fever on admission with mild leukocytosis. clinically better. afebrile leukocytosis has resolved. CXR- negative as per report, however agree with covering for HAP as imaging can lag behind at times. in addition to Tamiflu since pt. comes from [place] and was recently inpatient as well. plan- complete total 5 days of tamilfu. advise to continue with cefepime and vanco but total of % days only ( day #2 today). however decrease vanco dose to be based on age and renal function. keep trough <15. can be completed at the [place]. follow u sputum cx result. monitor aspiration precautions. check urine legionella AG and Mycoplasma serology. All Labs and imaging and chart notes reviewed. case d/w Hospitalist . Thank you for allowing me to take part in the care of this patient
[2018-04-21] MEDS: Enoxaparin 40 mg Syringe SC SCH (12:36)
[2018-04-21] MEDS: Cefepime 1 GM in Sodium Chloride 0.9% 100 ML IVPB SCH ×2 (12:38→20:39)
[2018-04-21] MEDS: HCTZ/Losartan 12.5/50 Tab PO SCH (12:45)
--- NOTE | 2018-04-21 13:54 | CARD ---
APPROVED REPORT Date of service: 04/20/2018 EKG Measurement Heart [id number] <Conclusion> Normal sinus rhythm Normal ECG
--- NOTE | 2018-04-21 14:46 | CP.PCM.DIS ---
Provider - Provider Date of Admission: 04/20/18 21:00 Attending physician: Rui Mcmillan Consults: 04/21/18 02:00 Infectious Disease Consult Routine Comment: Consulting Provider: Jeannette Menard Consulting Physician: Jeannette Menard Reason for Consult: Influenza +ve/ Pneumona/sepsis Time Spent in preparation of Discharge (in minutes): 35 Hospital Course - Lab Results Lab Results: Most Recent Lab Values WBC 9.8 K/uL (4.8-10.8) 04/21/18 06:45 RBC 3.86 Mil/uL (3.80-5.20) 04/21/18 06:45 Hgb 10.3 g/dL (12.0-16.0) L 04/21/18 06:45 Hct 31.8 % (34.0-47.0) L 04/21/18 06:45 MCV 82.3 fl (81.0-99.0) 04/21/18 06:45 MCH 26.7 pg (27.0-31.0) L 04/21/18 06:45 MCHC 32.5 g/dL (33.0-37.0) L 04/21/18 06:45 RDW 14.5 % (11.5-14.5) 04/21/18 06:45 Plt Count 296 K/uL (130-400) 04/21/18 06:45 MPV 7.9 fl (7.2-11.7) 04/20/18 21:05 Neut % (Auto) 92.9 % (50.0-75.0) H 04/20/18 21:05 Lymph % (Auto) 3.1 % (20.0-40.0) L 04/20/18 21:05 [place] % (Auto) 3.1 % (0.0-10.0) 04/20/18 21:05 Eos % (Auto) 0.2 % (0.0-4.0) 04/20/18 21:05 Baso % (Auto) 0.7 % (0.0-2.0) 04/20/18 21:05 Neut # (Auto) 12.8 K/uL (1.8-7.0) H 04/20/18 21:05 Lymph # (Auto) 0.4 K/uL (1.0-4.3) L 04/20/18 21:05 [place] # (Auto) 0.4 K/uL (0.0-0.8) 04/20/18 21:05 Eos # (Auto) 0.0 K/uL (0.0-0.7) 04/20/18 21:05 Baso # (Auto) 0.1 K/uL (0.0-0.2) 04/20/18 21:05 Neutrophils % (Manual) 87 % (42-75) H 04/20/18 21:05 Band Neutrophils % 3 % (0-2) H 04/20/18 21:05 Lymphocytes % (Manual) 6 % (20-50) L 04/20/18 21:05 Monocytes % (Manual) 4 % (0-10) 04/20/18 21:05 Hypersegmented Polys Present 04/20/18 21:05 Platelet Estimate Normal (NORMAL) 04/20/18 21:05 Hypochromasia (manual) Slight 04/20/18 21:05 Poikilocytosis (manual Slight 04/20/18 21:05 Anisocytosis (manual) Slight 04/20/18 21:05 Microcytosis (manual) Slight 04/20/18 21:05 PT 13.2 Seconds (9.8-13.1) H 04/20/18 21:05 INR 1.2 04/20/18 21:05 APTT 31.1 Seconds (25.6-37.1) 04/20/18 21:05 Sodium 142 mmol/l (132-148) 04/21/18 06:45 Potassium 3.7 MMOL/L (3.6-5.0) 04/21/18 06:45 Chloride 108 mmol/L (98-107) H 04/21/18 06:45 Carbon Dioxide 26 mmol/L (22-30) 04/21/18 06:45 Anion Gap 12 (10-20) 04/21/18 06:45 BUN 15 mg/dl (7-17) 04/21/18 06:45 Creatinine 0.7 mg/dl (0.7-1.2) 04/21/18 06:45 Est GFR ( Amer) > 60 04/21/18 06:45 Est GFR (Non-Af Amer) > 60 04/21/18 06:45 Random Glucose 122 mg/dL (65-105) H 04/21/18 06:45 Lactic Acid 0.9 mmol/L (0.7-2.1) 04/20/18 21:05 Calcium 8.8 mg/dL (8.4-10.2) 04/21/18 06:45 Total Bilirubin 0.5 mg/dl (0.2-1.3) 04/20/18 21:05 AST 23 U/L (14-36) 04/20/18 21:05 ALT 19 U/L (9-52) 04/20/18 21:05 Alkaline Phosphatase 98 U/L (38-126) 04/20/18 21:05 Troponin I 0.0250 ng/mL (0.00-0.120) 04/20/18 21:05 NT-Pro-B Natriuret Pep 1170 pg/ml (0-900) H 04/20/18 21:05 Total Protein 6.8 G/DL (6.3-8.2) 04/20/18 21:05 Albumin 3.5 g/dL (3.5-5.0) 04/20/18 21:05 Globulin 3.3 gm/dL (2.2-3.9) 04/20/18 21:05 Albumin/Globulin Ratio 1.1 (1.0-2.1) 04/20/18 21:05 Procalcitonin 0.10 NG/ML (0.19-0.49) L 04/21/18 06:45 Urine Color Yellow (YELLOW) 04/21/18 08:20 Urine Clarity Slighty-cloudy (Clear) 04/21/18 08:20 Urine pH 5.0 (5.0-8.0) 04/21/18 08:20 Ur Specific [place] 1.023 (1.003-1.030) 04/21/18 08:20 Urine Protein 30 mg/dL (NEGATIVE) 04/21/18 08:20 Urine Glucose (UA) Neg mg/dL (NEGATIVE) 04/21/18 08:20 Urine Ketones Negative mg/dL (NEGATIVE) 04/21/18 08:20 Urine Blood Negative (NEGATIVE) 04/21/18 08:20 Urine Nitrate Negative (NEGATIVE) 04/21/18 08:20 Urine Bilirubin Negative (NEGATIVE) 04/21/18 08:20 Urine Urobilinogen 0.2-1.0 mg/dL (0.2-1.0) 04/21/18 08:20 Ur Leukocyte Esterase Neg [place]/uL (Negative) 04/21/18 08:20 Urine RBC (Auto) 1 /hpf (0-3) 04/21/18 08:20 Urine Microscopic WBC 2 /hpf (0-5) 04/21/18 08:20 Ur Squamous Epith Cells < 1 /hpf (0-5) 04/21/18 08:20 Influenza Typ A,B (EIA) Pos for influenza a (NEGATIVE) H 04/20/18 21:05 - Hospital Course Hospital Course: 83 y/o F with a PMHx Lewy body dementia, hypertension, and HLD brought to hospital from [facility] as she was having persisitent cough, dyspnea, and fevers and failed oral antibiotics. Pt was noted to have a + flu test and was suspected CAP, though Cxray was negative. She was admitted for evaluation and management of sepsis, influenza viral infection and bilateral pneumonia. Pt evaluated by ID, Dr. Menard, to be continued on IV ABX for HAP for 5 days and will f/u blood cultures. Pt was seen and evaluated this morning at the bedside. Her respiratory status is improved and she states she feels better but still has a cough. Pt was hemodynamically stable and cleared for discharge to [facility] with instructions to continue Tamiflu, Cefepime, and Vacomycin for 5 days. PLAN >Sepsis --Resolved, no longer meets sepsis criteria >Cough -- 2/2 to Influenza. Suspicion for HAP. --Will treat for flu and empirically for HAP as pt is from [facility]. ---ID Consulted, reccs appreciated --Cxray- no acute findings --Sputum culture and Bcx ordered --IV NS at 100mL/hr. (Aware of elevated pro-BNP. No previous Hx of CHF) --IV Vancomycin and IV Cefepime ordered. Can be continued at [facility] at discharge for total of 5 days as per ID. --Tylenol PRN for fever, Robitussin for cough, Scheduled nebulizers --F/u strep pneumo urine Ag, Legionela urine Ag, Sputum culture >Influenza A viral infection --Oseltamivir BID --Tylenol PRN for pain. >Hypertension: --Chronic --Home meds resumed >Lewy Body Dementia --Chronic >DVT prophylaxis --Lovenox 40 mg SC daily --SCD's Code Status -Full code Discharge Exam - Head Exam Head Exam: ATRAUMATIC, NORMAL INSPECTION, NORMOCEPHALIC - Eye Exam Eye Exam: Normal appearance - ENT Exam ENT Exam: Mucous Membranes Moist - Respiratory Exam Respiratory Exam: Rhonchi. absent: Rales, Wheezes - Cardiovascular Exam Cardiovascular Exam: REGULAR RHYTHM, +S1, +S2. absent: Systolic Murmur - GI/Abdominal Exam GI & Abdominal Exam: Soft. absent: Tenderness - Neurological Exam Neurological exam: Alert Discharge Plan - Discharge Medications Prescriptions: Cefepime 1gm in NS 100ml [Maxipime 1gm] 1 gm IVPB Q8 5 Days bag guaiFENesin/Dextromethorphan [Robitussin DM] 10 ml PO Q12 7 Days #89 ml Oseltamivir Phosphate [Tamiflu] 75 mg PO BID 4 Days #8 capsule Vancomycin/0.9 % Sod Chloride [Vanco 1 Gram/250 ml-0.9% NaCl] 1 gm IV Q12 5 Days plast..bag - Follow Up Plan Condition: FAIR Disposition: TRANSF TO SNF
--- NOTE | 2018-04-21 15:50 | CP.PCM.PN ---
Subjective - Date & Time of Evaluation Date of Evaluation: 04/21/18 Time of Evaluation: 08:00 - Subjective Subjective: Pt seen and examined this morning. Seen sitting in bed, slightly confused (baseline) but calm. Intermittent cough noted. Pt cooperative with exam. Discussed plan with daughter today. Daughter states she does not want mother to return to current senior living as she does not feel it is safe for her condition. Explained in depth with daughter that she is hemodynamically stable, stable and improving respiratory status, and currently receiving IV antibiotics which can be continued in senior living, thus she would get the same treatment. She can also remain in isolation in senior living. Daughter is agreeable with plan. Pt will remain under observation for 1 more day. Will discharge tomorrow. Objective - Vital Signs/Intake and Output Vital Signs (last 24 hours): Temp Pulse Resp BP Pulse Ox 98.4 F 82 20 137/55 L 95 04/21/18 15:21 04/21/18 15:21 04/21/18 15:21 04/21/18 15:21 04/21/18 15:21 - Medications Medications: Current Medications Acetaminophen (Tylenol 325mg Tab) 650 mg PO Q4 PRN PRN Reason: Fever >100.4 F Acetaminophen (Tylenol 325mg Tab) 650 mg PO Q6 PRN PRN Reason: Pain, moderate (4-7) Al Hydrox/Mg Hydrox/Simethicone (Maalox Plus 30 Ml) 30 ml PO Q4 PRN PRN Reason: Indigestion / Heartburn Albuterol/Ipratropium (Duoneb 3 Mg/0.5 Mg (3 Ml) Ud) 3 ml INH RQ4 [facility] Last Admin: 04/21/18 12:54 Dose: 3 ml Atorvastatin Calcium (Lipitor) 40 mg PO HS [facility] Carvedilol (Coreg) 3.125 mg PO Q12 [facility] Last Admin: 04/21/18 12:34 Dose: 3.125 mg Clopidogrel Bisulfate (Plavix) 75 mg PO DAILY [facility] Last Admin: 04/21/18 11:48 Dose: 75 mg Enoxaparin Sodium (Lovenox) 40 mg SC DAILY [facility]; Protocol Last Admin: 04/21/18 12:36 Dose: 40 mg Famotidine (Pepcid) 20 mg PO HS [facility] Guaifenesin/Dextromethorphan (Robitussin Dm) 10 ml PO Q12 [facility] HCTZ/Losartan Potassium (Hyzaar 12.5 Mg-50 Mg) 1 tab PO DAILY [facility] Last Admin: 04/21/18 12:45 Dose: 1 tab Cefepime HCl 1 gm/ Sodium (Chloride) 100 mls @ 100 mls/hr IVPB Q8 [facility]; Protocol Last Admin: 04/21/18 12:38 Dose: 100 mls/hr Vancomycin HCl 1 gm/ Sodium (Chloride) 250 mls @ 166.667 mls/hr IVPB Q12 [facility]; Protocol Nystatin (Nystop Topical Powder) 1 applic TOP BID [facility] Last Admin: 04/21/18 12:40 Dose: 1 applic Oseltamivir Phosphate (Tamiflu Cap) 75 mg PO BID [facility]; Protocol Last Admin: 04/21/18 12:35 Dose: 75 mg Petrolatum (Balmex 11.3%) 1 applic TOP Q12 [facility] - Labs Labs: 04/21/18 06:45 04/21/18 06:45 PT 13.2 Seconds (9.8-13.1) H 04/20/18 21:05 INR 1.2 04/20/18 21:05 APTT 31.1 Seconds (25.6-37.1) 04/20/18 21:05 - Constitutional Appears: No Acute Distress - Head Exam Head Exam: NORMAL INSPECTION - Eye Exam Eye Exam: Normal appearance - ENT Exam ENT Exam: Mucous Membranes Moist - Respiratory Exam Respiratory Exam: Decreased Breath Sounds, Rhonchi, Wheezes. absent: Accessory Muscle Use, Rales - Cardiovascular Exam Cardiovascular Exam: Tachycardia - GI/Abdominal Exam GI & Abdominal Exam: Soft, Normal Bowel Sounds. absent: Tenderness - Extremities Exam Extremities Exam: absent: Pedal Edema - Neurological Exam Neurological Exam: Alert, Awake - Psychiatric Exam Psychiatric exam: Flat Affect - Skin Skin Exam: Normal Color Assessment and Plan - Assessment and Plan (Free Text) Assessment: 83 y/o F with a PMHx Lewy body dementia, hypertension, and HLD was admitted for evaluation and management of sepsis, influenza viral infection and bilateral pneumonia. Pt evaluated by ID, Dr. Menard, to be continued on IV ABX for HAP for 5 days and will f/u blood cultures. PLAN >Sepsis --Resolved, no longer meets sepsis criteria >Cough -- 2/2 to Influenza. May have HAP. --Will treat for flu and empirically for HAP as pt is from senior living. ---ID Consulted, reccs appreciated --Cxray- no acute findings --Sputum culture and Bcx ordered --IV NS at 100mL/hr. (Aware of elevated pro-BNP. No previous Hx of CHF) --IV Vancomycin and IV Cefepime ordered. Can be continued at senior living at discharge for total of 5 days as per ID. --Tylenol PRN for fever, Robitussin for cough, Scheduled nebulizers --F/u strep pneumo urine Ag, Legionela urine Ag, Sputum culture >Influenza A viral infection --Oseltamivir BID --Tylenol PRN for pain. >Hypertension: --Chronic --Home meds resumed >Lewy Body Dementia --Chronic >DVT prophylaxis --Lovenox 40 mg SC daily --SCD's Code Status -Full code
[2018-04-21] MEDS: ZINC OXIDE CREAM(BALMEX) TOP SCH ×3 (15:59→21:16)
[2018-04-21] MEDS: guaiFENesin DM 200 mg-20 mg/10 ml UD PO SCH (21:16)
[2018-04-22] MEDS: Cefepime 1 GM in Sodium Chloride 0.9% 100 ML IVPB SCH ×2 (00:33→11:31)
[2018-04-22] MEDS: Albuterol-Ipratrop 3 mg / 0.5 (3 ml) UD INH SCH ×2 (05:00→07:34)
[2018-04-22 08:27] VITALS: BP 136/84; PULSE 85; O2SAT 97
[2018-04-22 08:44] VITALS: RESP 19; TEMP 97.8
[2018-04-22] MEDS: ZINC OXIDE CREAM(BALMEX) TOP SCH (08:44)
[2018-04-22] MEDS: HCTZ/Losartan 12.5/50 Tab PO SCH (08:47)
[2018-04-22] MEDS: Enoxaparin 40 mg Syringe SC SCH (08:47)
[2018-04-22] MEDS: guaiFENesin DM 200 mg-20 mg/10 ml UD PO SCH (08:49)
== END 2018-04-22 11:20 ==
LOC: H.ER 18:55 → INTOOBSV 21:00 → H.ERHOLD 21:00 → H.MEDSURG3 04-21 09:35
PROVIDERS: ADMIT Internal Medicine; ATTEND Internal Medicine
DX: J10.00 Influenza due to other identified influenza virus with unspecified type of pneumonia (principal); J12.9 Viral pneumonia, unspecified; G31.83 Neurocognitive disorder with Lewy bodies; N39.0 Urinary tract infection, site not specified; F02.80 Dementia in other diseases classified elsewhere, unspecified severity, without behavioral disturbance, psychotic disturbance, mood disturbance, and anxiety; I12.9 Hypertensive chronic kidney disease with stage 1 through stage 4 chronic kidney disease, or unspecified chronic kidney disease; N18.9 Chronic kidney disease, unspecified; E78.5 Hyperlipidemia, unspecified; E78.00 Pure hypercholesterolemia, unspecified; Z87.442 Personal history of urinary calculi; Z87.891 Personal history of nicotine dependence; Z88.6 Allergy status to analgesic agent
CPT/HCPCS: 71045; 80048; 80053; 81003; 83605; 83880; 84145; 84484; 85025; 85027; 85610; 85730; 86738; 87040; 87449; 87804; 87899; 93005; 94640; 96361; 96365; 99284; G0378; J0692; J0744; J1650; J3370; J7030